=== PATIENT | male | born 1960 | race Caucasian/White ===

== ENCOUNTER 2016-07-07 08:00 | Emergency (ER) | payer OTHER ==
[~2016-07-07] VITALS: Ht 185.4 cm; Wt 169.0 kg
[~2016-07-07 08:00] MED LIST: LSX20 PO; PRED20TA PO
[2016-07-07 08:04] VITALS: TEMP 36.6; Ht 185.4 cm; Wt 169.0 kg
[2016-07-07] MEDS ORDERED: FURO-85 PO (08:20)
[2016-07-07] MEDS ORDERED: NTRGSL/4 UT (09:11)
[2016-07-07] MEDS ORDERED: ATOR-22 PO (09:11)
[2016-07-07] MEDS ORDERED: METO25TA3 PO (09:11)
[2016-07-07] MEDS ORDERED: ASPI81TA28 PO (09:15)
--- NOTE | 2016-07-07 09:17 | DIAGNOSTIC IMAGING REPORT ---
LEFT LOWER EXTREMITY VENOUS DOPPLER CLINICAL HISTORY: Left lower extremity pain. COMPARISON STUDY: No previous studies for comparison. TECHNIQUE: Sonography of the deep venous system of the left lower extremity was performed. Compression and augmentation were evaluated. FINDINGS: The left common femoral, superficial femoral and popliteal veins were compressible. Augmentation was normal. Flow was shown within the deep calf vessels. Note was made of subcutaneous edema of the left calf. IMPRESSION: No evidence of deep venous thrombus within the left lower extremity. Electronically signed by: Peng Fierro M.D. 07/07/2016 9:16 AM Dictated Date/Time: 07/07/2016 9:15 AM
[2016-07-07] MEDS ORDERED: CLOP1TAB15 PO (09:21)
--- NOTE | 2016-07-07 10:29 | DIAGNOSTIC IMAGING REPORT ---
LEFT ANKLE MIN 3 VIEWS ROUTINE CLINICAL HISTORY: Left ankle pain and swelling COMPARISON: None DISCUSSION: No acute fractures are visualized. There is a prominent plantar calcaneal spur. There are no erosive or destructive changes. There are soft tissue calcifications within the distal calf which appear dermal/subdermal. There is mild medial soft tissue swelling. There is a prominent Achilles insertional spur with equivocal thickening of the distal Achilles tendon IMPRESSION: 1. Soft tissue swelling, and soft tissue calcifications likely dermal/subdermal 2. Plantar calcaneal spur. 3. No acute fractures identified 4. Achilles insertional spur with equivocal thickening of the distal Achilles tendon. Electronically signed by: Richie Shaw M.D. 07/07/2016 10:28 AM Dictated Date/Time: 07/07/2016 8:54 AM
[2016-07-07] MEDS ORDERED: PRED50TA PO (11:11)
--- NOTE | 2016-07-07 11:12 | EMERGENCY ROOM VISIT NOTE ---
History First contact with patient: 08:07 Chief Complaint: ANKLE PAIN Stated Complaint: ANKLE SWOLLEN - LEFT History of Present Illness The patient is a 56 year old male who presents to the Emergency Department by private vehicle for evaluation of his LEFT ankle pain and swelling. He reports that he has noticed symptoms of pain to the posterior aspect of the ankle over the past month. Last evening, he developed increasing pain while at work. He reports increasing pain with inflation. He denies any numbness or tingling into his toes. He reports no history of diabetes. The patient does report a history of coronary artery disease and does take Plavix daily. There is been no history of blood clots or bleeding disorders. He rates his current discomfort as 4/10. Patient denies any fevers, chills, nausea, vomiting, chest pain, palpitations, shortness of breath. He denies any trauma to the heel. Patient has tried nothing for his symptoms to this point. Review of Systems A complete 10-point Review of Systems was discussed with the patient, with pertinent positives and negatives listed in the History of Present Illness. All remaining Review of Systems questions can be considered negative unless otherwise specified. Past Medical/Surgical History Medical Problems: (1) Exertional dyspnea (2) Heart attack Surgical Problems: (1) History of heart artery stent Family History Patient reports no known family medical history. Social History Smoking Status: Never Smoker Alcohol Use: none Drug Use: none Marital Status: Occupation Status: employed Current/Historical Medications Scheduled Aspirin (Aspirin Ec), 81 MG PO DAILY Atorvastatin (Lipitor), 40 MG PO DAILY Clopidogrel (Plavix), 75 MG PO DAILY Furosemide (Lasix), 40 MG PO QAM Metoprolol Succinate (Toprol Xl), 25 MG PO DAILY Prednisone (Prednisone), 50 MG PO DAILY Scheduled PRN Nitroglycerin (Nitrostat), 0.4 MG UT PRN PRN for Chest Pain Allergies Coded Allergies: Latex1 -Allergic Contact Dermititis (Unverified Allergy, Mild, RASH, ) Physical Exam Vital Signs Date Time Temp Pulse Resp B/P Pulse Ox O2 Delivery O2 Flow Rate FiO2 07/07/16 11:28 71 18 170/100 99 07/07/16 09:37 74 18 179/105 98 Room Air 07/07/16 08:04 36.6 71 20 172/86 97 Room Air Pain Rating (0-10): 4 Physical Exam VITAL SIGNS - Vital signs and nursing notes were reviewed. GENERAL - 56-year-old male appearing his stated age and in noticeable discomfort throughout the exam. MUSCULOSKELETAL - palpable lump noted to the posterior aspect of the LEFT heel. Full range of motion in both flexion and extension of the affected foot. No palpable edema. No erythema or lymphadenopathy/lymphatic streaking appreciated. +5/5 strength appreciated bilaterally. NEUROLOGIC/VASCULAR - Neurovascularly intact distally with +3/5 dorsalis pedis pulses palpated bilaterally. Normal sensation to light and sharp touch appreciated distally. Medical Decision & Procedures ER Provider Diagnostic Interpretation: Radiological imaging and reports were reviewed by myself. Radiologist's Interpretation as follows: LEFT ANKLE MIN 3 VIEWS ROUTINE CLINICAL HISTORY: Left ankle pain and swelling COMPARISON: None DISCUSSION: No acute fractures are visualized. There is a prominent plantar calcaneal spur. There are no erosive or destructive changes. There are soft tissue calcifications within the distal calf which appear dermal/subdermal. There is mild medial soft tissue swelling. There is a prominent Achilles insertional spur with equivocal thickening of the distal Achilles tendon IMPRESSION: 1. Soft tissue swelling, and soft tissue calcifications likely dermal/subdermal 2. Plantar calcaneal spur. 3. No acute fractures identified 4. Achilles insertional spur with equivocal thickening of the distal Achilles tendon. LEFT LOWER EXTREMITY VENOUS DOPPLER CLINICAL HISTORY: Left lower extremity pain. COMPARISON STUDY: No previous studies for comparison. TECHNIQUE: Sonography of the deep venous system of the left lower extremity was performed. Compression and augmentation were evaluated. FINDINGS: The left common femoral, superficial femoral and popliteal veins were compressible. Augmentation was normal. Flow was shown within the deep calf vessels. Note was made of subcutaneous edema of the left calf. IMPRESSION: No evidence of deep venous thrombus within the left lower extremity. ED Course Patient was seen and evaluated by myself. X-ray and ultrasound were obtained. Patient declines anything for pain. Imaging studies above. Imaging studies were reviewed with the patient who acknowledges understanding. The patient cannot utilize NSAIDs. He was placed on a short course of prednisone. He was encouraged to follow-up with orthopedic surgery from today's visit. He was educated on worrisome symptoms for return visit to the emergency department. Patient discharged home in good condition. Medical Decision Given the patient's presentation and exam findings, I did elect to perform the above-mentioned workup. The patient presents today with pain and a palpable lump to the insertion point of the Achilles. There is no erythema or warmth to touch. No palpable cords. X-ray demonstrates a calcific area at the insertion point of the Achilles. Ultrasound was otherwise unremarkable. The patient is likely expansion an acute tendinitis. He has no exam finds consistent with cellulitis or early infection at this point. He is unable to take NSAIDs. He is provided prednisone. He will continue to ice the area for comfort. He will follow-up with orthopedic surgery from today's visit. He will return in the setting of any change or worsening symptoms. Patient discharged home in good condition. In the evaluation and treatment of this patient, the following differential diagnoses were considered: Ankle Fracture, Ankle Sprain, Distal Fibula Fracture , Distal Tibia Fracture, Foot Fracture, Maisonneuve Fracture. Impression Primary Impression: Calcific Achilles tendonitis Additional Impression: Ankle pain, left Departure Information Dispostion Home / Self-Care Condition GOOD Prescriptions Prednisone (Prednisone) 50 Mg Tab 50 MG PO DAILY for 5 Days, #5 TAB Prov: Alpesh Estrada, GREG 07/07/16 Referrals Hany Berrios M.D. (PCP) Matthew Guallpa M.D. Patient Instructions My [facility], Tendonitis Foot Tx Additional Instructions You have been treated in the Emergency Department for an Achilles Calcific Tendonitis. You have been prescribed Prednisone 50 mg to be taken orally once a day for the next 5 days. This is an anti-inflammatory medicine to be used to help minimize your symptoms. You should take the COMPLETE course of the medication. For pain control, you can use the following [id number] medicines (if >12 yo): - Regular strength (325mg/tab) Tylenol (acetaminophen) 2 tabs every 4-6 hours as needed. Do not exceed 12 tablets in a 24 hour period. Avoid taking more than 4 grams (4000 mg) of Tylenol per day. This includes any other sources of acetaminophen you may take on a regular basis. - Regular strength (200 mg/tab) Advil (ibuprofen) 1-2 tabs every 4-6 hours as needed. Do not exceed a dose of 3200 mg per day. If this is a recent injury (<24 hrs), ice can be applied to the area of pain for the first 3 days to help decrease pain and inflammation. Follow-up with orthopedic surgery in the next week for ongoing symptoms. Return to the Emergency Department if your current symptoms worsen despite treatment course outlined above, or if you develop any of the following symptoms : intractable pain despite aforementioned treatment course or new onset of numbness or tingling of the foot. Problem Qualifiers Additional Impression: Ankle pain, left Chronicity: acute Qualified Codes: M25.572 - Pain in left ankle and joints of left foot
[2016-07-07 11:28] VITALS: BP 170/100; PULSE 71; O2SAT 99
== END 2016-07-07 11:29 | disposition home or self-care (01) ==
LOC: C.EDB 08:00 → C.EDA 11:29
DX: M76.62 Achilles tendinitis, left leg (principal); M25.572 Pain in left ankle and joints of left foot; I25.10 Atherosclerotic heart disease of native coronary artery without angina pectoris; I25.2 Old myocardial infarction; Z79.02 Long term (current) use of antithrombotics/antiplatelets; Z79.82 Long term (current) use of aspirin; Z79.899 Other long term (current) drug therapy

== ENCOUNTER 2016-10-28 07:13 | Emergency (ER) | payer OTHER ==
[~2016-10-28] VITALS: Ht 185.4 cm; Wt 175.2 kg
[~2016-10-28 07:13] MED LIST changes: +ASPI81TA28 PO; +ATOR-22 PO; +CLOP1TAB15 PO; +FURO-85 PO; -LSX20 PO; +METO25TA3 PO; +NTRGSL/4 UT; -PRED20TA PO
[2016-10-28 07:14] VITALS: TEMP 36.7; Ht 185.4 cm; Wt 175.2 kg
[2016-10-28] MEDS ORDERED: ALBUT/IPRATROP 3MG/0.5MG NEB 3 ML VIAL INH STA (07:29)
--- NOTE | 2016-10-28 07:33 | EMERGENCY ROOM VISIT NOTE ---
History First contact with patient: 07:19 Chief Complaint: SHORTNESS OF BREATH Stated Complaint: CHEST PAIN,SHORTNESS OF BREATH,BODY ACHES Nursing Triage Summary: pt c/o shortness of breath and cough. chest pains with coughing History of Present Illness The patient is a 56 year old male who presents to the Emergency Room with complaints of upper respiratory symptoms. The patient states that he has had a cough for approximately one week. He states that his symptoms have worsened. He reports productive cough with green-colored sputum. He states that he feels short of breath and has pain in his chest only when coughing. The patient rates his discomfort as 6/10. He denies any fevers. He denies any sore throat , earache or sinus congestion. He denies any abdominal pain, nausea or vomiting. He does admit to swelling in his lower extremities but states this is chronic for him and unchanged. He denies any urinary symptoms. The patient has a history of IL with angioplasty last December. He states that this pain feels different. The patient does not know of any sick contacts. Review of Systems A 10 system review of systems was completed with positives and pertinent negatives listed in the HPI. Past Medical/Surgical History Medical Problems: (1) Exertional dyspnea (2) Heart attack Surgical Problems: (1) History of heart artery stent Family History Patient reports no known family medical history. Social History Smoking Status: Never Smoker Alcohol Use: none Drug Use: none Marital Status: Occupation Status: employed Current/Historical Medications Scheduled Albuterol Sulfate (Proair Respiclick), 1-2 PUFFS INH Q4 Aspirin (Aspirin Ec), 81 MG PO DAILY Atorvastatin (Lipitor), 40 MG PO DAILY Clopidogrel (Plavix), 75 MG PO DAILY Doxycycline Hyclate (Vibramycin), 100 MG PO BID Furosemide (Lasix), 40 MG PO QAM Metoprolol Succinate (Toprol Xl), 25 MG PO DAILY Prednisone (Prednisone), 0 PO DAILY Scheduled PRN Nitroglycerin (Nitrostat), 0.4 MG UT PRN PRN for Chest Pain Allergies Coded Allergies: Latex1 -Allergic Contact Dermititis (Unverified Allergy, Mild, RASH, ) Physical Exam Vital Signs Date Time Temp Pulse Resp B/P Pulse Ox O2 Delivery O2 Flow Rate FiO2 10/28/16 10:45 136/72 10/28/16 09:13 71 16 132/65 98 Room Air 10/28/16 07:29 67 10/28/16 07:25 96 Room Air 10/28/16 07:14 36.7 73 16 142/72 98 Room Air Physical Exam VITALS: Vitals are noted on the nurse's note and reviewed by myself. Vital signs stable. The patient is afebrile. He is not tachycardic, tachypneic or hypoxic. GENERAL: This is a 56-year-old male, in no acute distress, nondiaphoretic, well- developed well-nourished. SKIN: The skin was without rashes, erythema, edema, or bruising. There is no tenting of the skin. Capillary reflex less than 2 seconds. HEAD: Normocephalic atraumatic. EARS: External ears are normal in appearance. EYES: Pupils equal round and reactive to light and accommodation. Conjunctivae without injection, sclerae without icterus. Extraocular movements intact. NOSE: Patent, turbinates without inflammation or discharge. MOUTH: Mucous membranes moist. Tonsils are not enlarged. Pharynx without erythema or exudate. Uvula midline. Airway patent. Tongue does not deviate. NECK: Supple without nuchal rigidity. No lymphadenopathy. No thyromegaly. Cervical spine is nontender. No JVD. HEART: Regular rate and rhythm without murmurs gallops or rubs. LUNGS: Scattered expiratory wheezes. No retractions or accessory muscle use. ABDOMEN: Positive bowel sounds x 4. Soft, nontender, without masses or organomegaly. MUSCULOSKELETAL: No muscle atrophy, erythema noted. Full range of motion in all extremities. Strength 5/5 throughout. NEURO: Patient was alert and oriented to person place and time. No focal neurological deficits. Medical Decision & Procedures ER Provider Diagnostic Interpretation: CHEST 2 VIEWS ROUTINE HISTORY: cough COMPARISON: Chest 05/15/2016. FINDINGS: No focal lung consolidations to suggest pneumonia. No evidence for pulmonary edema. The heart remains borderline enlarged. No pleural effusions. No pneumothorax. Slight prominence of interstitial markings remains unchanged. This may be technical. IMPRESSION: No significant change compared to the prior study. No acute process. Laboratory Results 10/28/16 07:45 Red Blood Count 4.69, Mean Corpuscular Volume 88.7, Mean Corpuscular Hemoglobin 29.6, Mean Corpuscular Hemoglobin Concent 33.4, Mean Platelet Volume 8.9, Neutrophils (%) (Auto) 70.1, Lymphocytes (%) (Auto) 15.2, Monocytes (%) (Auto) 9.5, Eosinophils (%) (Auto) 4.6, Basophils (%) (Auto) 0.3, Neutrophils # (Auto) 4.28, Lymphocytes # (Auto) 0.93, Monocytes # (Auto) 0.58, Eosinophils # (Auto) 0.28, Basophils # (Auto) 0.02 10/28/16 07:45 Test 10/28/16 07:45 10/28/16 08:05 10/28/16 09:45 White Blood Count 6.11 K/uL (4.8-10.8) Red Blood Count 4.69 M/uL (4.7-6.1) Hemoglobin 13.9 g/dL (14.0-18.0) Hematocrit 41.6 % (42-52) Mean Corpuscular Volume 88.7 fL (80-100) Mean Corpuscular Hemoglobin 29.6 pg (25-34) Mean Corpuscular Hemoglobin Concent 33.4 g/dl (32-36) Platelet Count 247 K/uL (130-400) Mean Platelet Volume 8.9 fL (7.4-10.4) Neutrophils (%) (Auto) 70.1 % Lymphocytes (%) (Auto) 15.2 % Monocytes (%) (Auto) 9.5 % Eosinophils (%) (Auto) 4.6 % Basophils (%) (Auto) 0.3 % Neutrophils # (Auto) 4.28 K/uL (1.4-6.5) Lymphocytes # (Auto) 0.93 K/uL (1.2-3.4) Monocytes # (Auto) 0.58 K/uL (0.11-0.59) Eosinophils # (Auto) 0.28 K/uL (0-0.5) Basophils # (Auto) 0.02 K/uL (0-0.2) RDW Standard Deviation 44.5 fL (36.4-46.3) RDW Coefficient of Variation 13.7 % (11.5-14.5) Immature Granulocyte % (Auto) 0.3 % Immature Granulocyte # (Auto) 0.02 K/uL (0.00-0.02) Anion Gap 8.0 mmol/L (3-11) Est Creatinine Clear Calc Drug Dose 181.4 ml/min Estimated GFR () 118.0 Estimated GFR (Non- 101.8 BUN/Creatinine Ratio 21.7 (10-20) Calcium Level 8.5 mg/dl (8.5-10.1) Total Bilirubin 0.4 mg/dl (0.2-1) Aspartate Amino Transf (AST/SGOT) 27 U/L (15-37) Alanine Aminotransferase (ALT/SGPT) 38 U/L (12-78) Alkaline Phosphatase 83 U/L (45-117) Total Protein 6.0 gm/dl (6.4-8.2) Albumin 3.3 gm/dl (3.4-5.0) Globulin 2.7 gm/dl (2.5-4.0) Albumin/Globulin Ratio 1.2 (0.9-2) Lipase 181 U/L (73-393) Chemistry Specimen Hemolysis Prothrombin Time 9.9 SECONDS (9.0-12.0) Prothromb Time International Ratio 0.9 (0.9-1.1) Activated Partial Thromboplast Time 26.3 SECONDS (21.0-31.0) Partial Thromboplastin Ratio 1.0 Troponin I < 0.015 ng/ml (0-0.045) Medications Administered Medications (Trade) Dose Ordered Sig/Kel Route Start Time Stop Time Status Last Admin Dose Admin Albuterol/ Ipratropium (Duoneb) 3 ml NOW STAT INH 10/28/16 07:29 10/28/16 07:30 DC 10/28/16 07:52 3 ML Procedure The patient was monitored on a case monitor. They maintained a normal sinus rhythm without ectopy. ECG Indication: chest pain Rate (beats per minute): 70 Rhythm: normal sinus Findings: no acute ischemic change Change: no significant change ED Course The patient was seen and examined. Previous visits were reviewed. The patient does not have a fever or leukocytosis. He does not have any significant electrolyte abnormalities. Glucose was 123 and the patient was advised of this. Initial troponin was negative. A repeat 2 hour troponin which was almost 3 hours after the pain started was negative. Lipase was not elevated. INR was 0.9. Chest x-ray does not reveal any obvious abnormality The patient was given a DuoNeb with no significant improvement in his symptoms The patient presents to the emergency department with upper respiratory symptoms. He has had a productive cough and scattered expiratory wheezes. He is not tachycardic, tachypneic or hypoxic. He does not have significant risk factors for pulmonary embolus. He does not have pain with deep inspiration and does not complain of chest pain at rest. He states the chest discomfort is primarily with coughing. Given the patient's history of angioplasty and IL, troponin and repeat troponin were obtained and were negative. There is no evidence for acute ischemia or arrhythmia on EKG. The patient will be started on doxycycline, prednisone and albuterol inhaler. He should return to the ER with any worsening symptoms, pain with deep inspiration, worsening shortness of breath, chest pain Otherwise, he should recheck with his family doctor at the end of the week if symptoms persist The case was discussed with Dr. Sheth who agrees with the assessment and treatment plan Medical Decision DIFFERENTIAL DIAGNOSIS: Aortic dissection, myocarditis, pericarditis, cervical disc disease, costochondritis, herpes zoster, rib fracture, pleuritis, pneumonia , pulmonary embolus, tension pneumothorax, anxiety disorder, somatoform disorder , choledocholithiasis, status, esophagitis, esophageal spasm, esophageal reflux , esophageal rupture, pancreatitis, peptic ulcer disease, cardiac ischemia, ST elevation IL, acute coronary syndrome, arrhythmia, coronary artery vasospasm. vavular heart disease, coronary artery disease, among others. Impression Primary Impression: Bronchitis Additional Impression: Precordial chest pain Departure Information Dispostion Home / Self-Care Condition GOOD Prescriptions Albuterol Sulfate (Proair Respiclick) 108 Mcg/Act Aer 1-2 PUFFS INH Q4, #1 INHALER Prov: Cee Lovell PA-C 10/28/16 Prednisone (Prednisone) 20 Mg Tab 0 PO DAILY, #18 TAB 3 DAILY FOR 3 DAYS, THEN 2 DAILY FOR 3 DAYS, THEN 1 DAILY FOR 3 DAYS. Prov: Cee Lovell PA-C 10/28/16 Doxycycline Hyclate (VIBRAMYCIN) 100 Mg Cap 100 MG PO BID for 10 Days, #20 CAP Prov: Cee Lovell PA-C 10/28/16 Referrals Hany Berrios M.D. (PCP) Forms HOME CARE DOCUMENTATION FORM, IMPORTANT VISIT INFORMATION, Work Instructions Return To Work: 2 days Patient Instructions Bronchitis Acute, Chest Pain - [facility], My [facility] Additional Instructions Doxycycline every 12 hours for 10 days Prednisone as prescribed, until finished Use the inhaler as prescribed, as needed for wheezing You may want to try zantac or pepcid as the prednisone, doxycycline and aspirin can all be irritating to the stomach Return with worsening symptoms Otherwise, follow up with your family doctor in 3-5 days Problem Qualifiers
[2016-10-28 07:59] LABS: BASO % 0.3 %; BASO ABS # 0.02 K/uL (0-0.2); COMPLETE YES; EOS % 4.6 %; HEMATOCRIT 41.6 % (42-52); IG% 0.3 %; LYMPH % 15.2 %; LYMPH ABS # 0.93 K/uL (1.2-3.4); MEAN CELL VOLUME 88.7 fL (80-100); MEAN CORPUSCULAR HEMOGLOBIN 29.6 pg (25-34); MEAN CORPUSCULAR HGB CONC 33.4 g/dl (32-36); MEAN PLATELET VOLUME 8.9 fL (7.4-10.4); MONO % 9.5 %; NEUT % 70.1 %; PLATELET COUNT 247 K/uL (130-400); RED BLOOD COUNT 4.69 M/uL (4.7-6.1); WHITE BLOOD COUNT 6.11 K/uL (4.8-10.8)
[2016-10-28 08:43] LABS: INR 0.9 (0.9-1.1); PROTHROMBIN TIME (PATIENT) 9.9 SECONDS (9.0-12.0)
--- NOTE | 2016-10-28 08:45 | DIAGNOSTIC IMAGING REPORT ---
CHEST 2 VIEWS ROUTINE HISTORY: cough COMPARISON: Chest 05/15/2016. FINDINGS: No focal lung consolidations to suggest pneumonia. No evidence for pulmonary edema. The heart remains borderline enlarged. No pleural effusions. No pneumothorax. Slight prominence of interstitial markings remains unchanged. This may be technical. IMPRESSION: No significant change compared to the prior study. No acute process. Electronically signed by: Cesario Clark M.D. 10/28/2016 8:44 AM Dictated Date/Time: 10/28/2016 8:43 AM
[2016-10-28 08:51] LABS: ALB/GLOB RATIO 1.2 (0.9-2); ALKALINE PHOSPHATASE 83 U/L (45-117); ALT/SGPT 38 U/L (12-78); AST/SGOT 27 U/L (15-37); BLOOD UREA NITROGEN 16 mg/dl (7-18); BUN/CREATININE RATIO 21.7 (10-20); CARBON DIOXIDE 27 mmol/L (21-32); CHLORIDE 107 mmol/L (98-107); CREATININE 0.75 mg/dl (0.60-1.40); GLUCOSE 123 mg/dl (70-99); POTASSIUM 4.4 mmol/L (3.5-5.1); SODIUM 142 mmol/L (136-145)
[2016-10-28 08:54] LABS: CALCIUM 8.5 mg/dl (8.5-10.1)
[2016-10-28 09:13] VITALS: PULSE 71; O2SAT 98
[2016-10-28] MEDS ORDERED: DOXY100C PO (10:34)
[2016-10-28] MEDS ORDERED: PRED20TA PO (10:34)
[2016-10-28] MEDS ORDERED: ALBU18002 INH (10:34)
[2016-10-28 10:45] VITALS: BP 136/72
== END 2016-10-28 10:45 | disposition home or self-care (01) ==
LOC: C.EDB 07:14
DX: R07.2 Precordial pain (principal); J40 Bronchitis, not specified as acute or chronic; I51.9 Heart disease, unspecified; Z98.61 Coronary angioplasty status; Z79.82 Long term (current) use of aspirin; Z79.899 Other long term (current) drug therapy; Z91.040 Latex allergy status

== ENCOUNTER 2017-05-27 07:28 | Emergency (ER) | payer OTHER ==
[~2017-05-27] VITALS: Ht 185.4 cm; Wt 177.8 kg
[~2017-05-27 07:28] MED LIST changes: +ALBU18002 INH
[2017-05-27 07:33] VITALS: Ht 185.4 cm; Wt 177.8 kg
[2017-05-27] MEDS ORDERED: TPRSR/50 PO (07:42)
[2017-05-27] MEDS ORDERED: LISI-461 PO (07:42)
[2017-05-27] MEDS ORDERED: LPT40 PO (07:42)
[2017-05-27] MEDS ORDERED: ASPIRIN 81 MG CHEW PO STA (08:01)
--- NOTE | 2017-05-27 08:07 | EMERGENCY ROOM VISIT NOTE ---
History Report prepared by Chet: Cee Dickerson Under the Supervision of: Dr. Autumn Bernstein M.D. First contact with patient: 07:39 Chief Complaint: SHORTNESS OF BREATH Stated Complaint: SOB, CHEST PAIN History of Present Illness The patient is a 57 year old male who presents to the Emergency Room with complaints of persistent chest pain that began this morning prior to arrival. He currently rates his discomfort as a 6/10 in severity. The patient states that for the past month he has been experiencing a cough. He states that this morning while working and walking around, he developed chest pain. The patient states that he also developed shortness of breath. He states that his symptoms worsened with exertion. He describes his discomfort as a stabbing pain. The patient states that the pain radiates into his back. He reports a history of coronary artery disease and notes that he had a stent placed last year. The patient denies being a smoker and denies a history of diabetes. He denies any nausea. Source of History: patient Onset: this morinng prior to arrival Position: chest Symptom Intensity: 6/10 Quality: stabbing Timing: other (persistent) Modifying Factors (Worsening): exertion Associated Symptoms: + cough, + SOB, No nausea Review of Systems See HPI for pertinent positives & negatives. A total of 10 systems reviewed and were otherwise negative. Past Medical & Surgical Medical Problems: (1) Exertional dyspnea (2) Heart attack Surgical Problems: (1) History of heart artery stent Family History Patient reports no known family medical history. Social History Smoking Status: Never Smoker Alcohol Use: none Drug Use: none Marital Status: Occupation Status: employed Current/Historical Medications Scheduled Albuterol Sulfate (Proair Respiclick), 1-2 PUFFS INH Q4 Aspirin (Aspirin Ec), 81 MG PO DAILY Atorvastatin (Atorvastatin Calcium), 40 MG PO DAILY Clopidogrel (Plavix), 75 MG PO DAILY Furosemide (Lasix), 40 MG PO QAM Furosemide (Lasix), 1 TAB PO DAILY Lisinopril (Lisinopril), 10 MG PO DAILY Metoprolol Succinate (Metoprolol Succinate ER), 50 MG PO DAILY Scheduled PRN Nitroglycerin (Nitrostat), 0.4 MG UT PRN PRN for Chest Pain Allergies Coded Allergies: Latex1 -Allergic Contact Dermititis (Unverified Allergy, Mild, RASH, ) Physical Exam Vital Signs Date Time Temp Pulse Resp B/P (MAP) Pulse Ox O2 Delivery O2 Flow Rate FiO2 05/27/17 10:52 36.6 66 23 148/77 97 05/27/17 10:51 66 23 148/77 97 Room Air 05/27/17 09:46 67 23 144/70 97 05/27/17 09:41 65 20 98 05/27/17 09:36 69 20 98 05/27/17 09:31 147/77 05/27/17 09:28 69 20 96 05/27/17 09:01 144/70 05/27/17 08:58 71 15 98 05/27/17 08:31 150/74 05/27/17 08:28 76 24 95 05/27/17 08:05 82 18 147/72 95 Room Air 05/27/17 08:01 147/72 05/27/17 08:00 151/80 05/27/17 07:51 95 Room Air 05/27/17 07:33 36.6 79 18 171/81 97 Room Air Physical Exam Vital signs reviewed. General: Well-appearing male, in no significant distress. HEENT: No scleral icterus, PERRLA, neck supple. Atraumatic. Chest wall: Nontender chest wall to palpation. Cardiovascular: Regular rate and rhythm, no extra sounds. Pulmonary: Clear to auscultation bilaterally, normal work of breathing. Abdomen: Obese. Soft, nontender, nondistended, positive bowel sounds. Musculoskeletal: Atraumatic, no peripheral edema. Neurologic: Patient awake alert and oriented x 3, full strength in all 4 extremities. Cranial nerves 2 through 12 grossly intact. Skin: Warm, dry, no rash Medical Decision & Procedures ER Provider Diagnostic Interpretation: X-ray results as stated below per interpretation by me and the radiologist: CHEST ONE VIEW PORTABLE HISTORY: Short of breath. Atypical chest pain. COMPARISON: Chest 10/28/2016. FINDINGS: The heart remains top normal in size. No pleural effusions. No pneumothorax. Mild central pulmonary vascular congestion without overt edema. IMPRESSION: Mild central pulmonary vascular congestion without overt edema. Electronically signed by: Cesario Clark M.D. 05/27/2017 10:35 AM Dictated Date/Time: 05/27/2017 8:26 AM Laboratory Results 05/27/17 07:51 Red Blood Count 4.76, Mean Corpuscular Volume 88.4, Mean Corpuscular Hemoglobin 29.8, Mean Corpuscular Hemoglobin Concent 33.7, Mean Platelet Volume 9.1, Neutrophils (%) (Auto) 74.1, Lymphocytes (%) (Auto) 14.5, Monocytes (%) (Auto) 7.0, Eosinophils (%) (Auto) 4.0, Basophils (%) (Auto) 0.2, Neutrophils # (Auto) 4.47, Lymphocytes # (Auto) 0.87, Monocytes # (Auto) 0.42, Eosinophils # (Auto) 0.24, Basophils # (Auto) 0.01 05/27/17 07:51 Test 05/27/17 07:51 05/27/17 09:39 White Blood Count 6.02 K/uL (4.8-10.8) Red Blood Count 4.76 M/uL (4.7-6.1) Hemoglobin 14.2 g/dL (14.0-18.0) Hematocrit 42.1 % (42-52) Mean Corpuscular Volume 88.4 fL (80-100) Mean Corpuscular Hemoglobin 29.8 pg (25-34) Mean Corpuscular Hemoglobin Concent 33.7 g/dl (32-36) Platelet Count 235 K/uL (130-400) Mean Platelet Volume 9.1 fL (7.4-10.4) Neutrophils (%) (Auto) 74.1 % Lymphocytes (%) (Auto) 14.5 % Monocytes (%) (Auto) 7.0 % Eosinophils (%) (Auto) 4.0 % Basophils (%) (Auto) 0.2 % Neutrophils # (Auto) 4.47 K/uL (1.4-6.5) Lymphocytes # (Auto) 0.87 K/uL (1.2-3.4) Monocytes # (Auto) 0.42 K/uL (0.11-0.59) Eosinophils # (Auto) 0.24 K/uL (0-0.5) Basophils # (Auto) 0.01 K/uL (0-0.2) RDW Standard Deviation 44.7 fL (36.4-46.3) RDW Coefficient of Variation 13.8 % (11.5-14.5) Immature Granulocyte % (Auto) 0.2 % Immature Granulocyte # (Auto) 0.01 K/uL (0.00-0.02) Anion Gap 8.0 mmol/L (3-11) Est Creatinine Clear Calc Drug Dose 159.5 ml/min Estimated GFR () 111.3 Estimated GFR (Non- 96.0 BUN/Creatinine Ratio 14.3 (10-20) Calcium Level 8.2 mg/dl (8.5-10.1) Total Bilirubin 0.7 mg/dl (0.2-1) Direct Bilirubin 0.2 mg/dl (0-0.2) Aspartate Amino Transf (AST/SGOT) 17 U/L (15-37) Alanine Aminotransferase (ALT/SGPT) 28 U/L (12-78) Alkaline Phosphatase 87 U/L (45-117) Total Creatine Kinase 136 U/L (39-308) Creatine Kinase MB 2.8 ng/ml (0.5-3.6) Creatine Kinase MB Ratio 2.1 (0-3.0) Total Protein 6.6 gm/dl (6.4-8.2) Albumin 3.3 gm/dl (3.4-5.0) Bedside Troponin I < 0.030 ng/ml (0-0.045) Laboratory results per my review. Medications Administered Medications (Trade) Dose Ordered Sig/Kel Route Start Time Stop Time Status Last Admin Dose Admin Aspirin (Aspirin Chew) 324 mg NOW STAT PO 05/27/17 08:01 05/27/17 08:04 DC 05/27/17 08:40 324 MG Nitroglycerin (Nitrostat Tab) 0.4 mg Q5M PRN SL 05/27/17 08:15 05/27/17 11:49 DC 05/27/17 08:41 0.4 MG Furosemide (Lasix Inj) 40 mg NOW STAT IV 05/27/17 09:10 05/27/17 09:11 DC 05/27/17 09:37 40 MG ECG Indication: chest pain Rate (beats per minute): 78 Rhythm: normal sinus Findings: Q waves (Inferior), no acute ischemic change, no ectopy ED Course 0754: Past medical records reviewed. The patient was evaluated in room B8. A complete history and physical examination was performed. 0801: Ordered Aspirin 324 mg PO. 0815: Ordered Nitrostat Tab 0.4 mg SL. 0910: Ordered Lasix Inj 40 mg IV. 1003: I reevaluated the patient and he is resting comfortably. I discussed the test results with him and I discussed the treatment plan. He verbalized complete understanding and agreement. He is ready to go home. Medical Decision Differential diagnoses includes acute coronary syndrome, pulmonary embolus, aortic dissection, musculoskeletal pain, pneumonia, pleural effusion, pneumothorax, gastritis, peptic ulcer disease. This pt was evaluated and appeared to be in no distress. IV access was obtained and appeared to be in no distress. EKG was was performed and reveals no acute ischemia. Pt was given ASA 325 mg po. He was given NTG trial. CXR is c/w pulmonary edema. Pt was given 40 mg IV lasix. Troponin was negative x 2. Pt had no pain during the stay. He was feeling improved after diuresis. Pt was advised of the findings. He was given a Rx for lasix 40mg po daily and will f/u with his PCP this week. He will return to the ED for worsening of symptoms or any medical concerns. Medication Reconcilliation Current Medication List: was personally reviewed by me Blood Pressure Screening Patient's blood pressure: Elevated blood pressure Blood pressure disposition: Referred to PCP Impression Primary Impression: Pulmonary vascular congestion Scribe Attestation The scribe's documentation has been prepared under my direction and personally reviewed by me in its entirety. I confirm that the note above accurately reflects all work, treatment, procedures, and medical decision making performed by me. Departure Information Dispostion Home / Self-Care Prescriptions Furosemide (LASIX) 40 Mg Tab 1 TAB PO DAILY for 30 Days, #30 TAB 0 Refills Prov: Autumn Bernstein M.D. 05/27/17 Referrals Hany Berrios M.D. (PCP) Forms Call Back Authorization, HOME CARE DOCUMENTATION FORM, IMPORTANT VISIT INFORMATION Patient Instructions My [facility] Additional Instructions Diagnosis: Pulmonary vascular congestion Lasix 40 mg daily, taken the morning. Minimize the salt in your diet, less than 2 g daily. Follow-up with your physician as scheduled next week for reevaluation. Return to the emergency department immediately for worsening of symptoms, chest pain or any medical concerns.
[2017-05-27] MEDS ORDERED: NITROGLYCERIN 0.4 MG SL PER TAB CHARGE SL PRN (08:15)
[2017-05-27 08:22] LABS: BASO % 0.2 %; BASO ABS # 0.01 K/uL (0-0.2); COMPLETE YES; HEMATOCRIT 42.1 % (42-52); IG% 0.2 %; LYMPH % 14.5 %; LYMPH ABS # 0.87 K/uL (1.2-3.4); MEAN CELL VOLUME 88.4 fL (80-100); MEAN CORPUSCULAR HEMOGLOBIN 29.8 pg (25-34); MEAN CORPUSCULAR HGB CONC 33.7 g/dl (32-36); MEAN PLATELET VOLUME 9.1 fL (7.4-10.4); NEUT % 74.1 %; PLATELET COUNT 235 K/uL (130-400); RED BLOOD COUNT 4.76 M/uL (4.7-6.1); WHITE BLOOD COUNT 6.02 K/uL (4.8-10.8)
[2017-05-27 08:38] LABS: BUN/CREATININE RATIO 14.3 (10-20); CALCIUM 8.2 mg/dl (8.5-10.1); CREATININE 0.85 mg/dl (0.60-1.40); POTASSIUM 4.1 mmol/L (3.5-5.1)
[2017-05-27 08:43] LABS: CKMB/CK RATIO 2.1 (0-3.0)
[2017-05-27] MEDS ORDERED: FUROSEMIDE 40 MG/4 ML VIAL IV STA (09:10)
[2017-05-27] MEDS ORDERED: FURO40TA3 PO (10:34)
--- NOTE | 2017-05-27 10:36 | DIAGNOSTIC IMAGING REPORT ---
CHEST ONE VIEW PORTABLE HISTORY: Short of breath. Atypical chest pain. COMPARISON: Chest 10/28/2016. FINDINGS: The heart remains top normal in size. No pleural effusions. No pneumothorax. Mild central pulmonary vascular congestion without overt edema. IMPRESSION: Mild central pulmonary vascular congestion without overt edema. Electronically signed by: Cesario Clark M.D. 05/27/2017 10:35 AM Dictated Date/Time: 05/27/2017 8:26 AM
[2017-05-27 10:52] VITALS: BP 148/77; PULSE 66; TEMP 36.6; O2SAT 97
== END 2017-05-27 10:58 | disposition home or self-care (01) ==
LOC: C.EDB 07:29
DX: J81.1 Chronic pulmonary edema (principal); R06.02 Shortness of breath; I25.10 Atherosclerotic heart disease of native coronary artery without angina pectoris; I25.2 Old myocardial infarction; Z98.61 Coronary angioplasty status; Z79.02 Long term (current) use of antithrombotics/antiplatelets; Z79.82 Long term (current) use of aspirin

== ENCOUNTER 2017-08-24 08:04 | Emergency (ER) | payer OTHER ==
[~2017-08-24] VITALS: Ht 185.4 cm; Wt 168.8 kg
[~2017-08-24 08:04] MED LIST changes: -ATOR-22 PO; +FURO40TA3 PO; +LISI-461 PO; +LPT40 PO; -METO25TA3 PO; +TPRSR/50 PO
[2017-08-24 08:07] VITALS: TEMP 37; Ht 185.4 cm; Wt 168.8 kg
[2017-08-24 08:18] VITALS: O2SAT 96
[2017-08-24] MEDS ORDERED: ALBUT/IPRATROP 3MG/0.5MG NEB 3 ML VIAL INH STA (08:25)
[2017-08-24] MEDS ORDERED: ASPIRIN 324 MG CHEW PO STA (08:25)
[2017-08-24] MEDS ORDERED: FRS/40 PO (08:30)
--- NOTE | 2017-08-24 08:43 | EMERGENCY ROOM VISIT NOTE ---
History Report prepared by Chte: Benedicto Ovalle Under the Supervision of: Dr. Parish Grossman M.D. First contact with patient: 08:12 Chief Complaint: CHEST PAIN Stated Complaint: CHEST PAIN History of Present Illness The patient is a 57 year old white male with a past medical history of HTN and IL with stent placement (MICKIE to RCA) who presents to the ED with a cc of constant central chest pain beginning 30 minutes ago. Patient describes his pain as an "achy-burning". He denies modifying factors. Positive cough, diaphoresis, headache shortness of breath. Pain began while walking around his building at work. Negative fevers, chills, pain radiation. Shortness of breath is not worsened with laying down. He is on aspirin and Plavix. Unsure if increased leg swelling. No history of blood clots. Source of History: patient Onset: 30 minutes ago Position: chest (central) Quality: other ("achy-burning") Timing: constant Modifying Factors (Worsening): other (none) Modifying Factors (Relieving): other (none) Associated Symptoms: + headache, + diaphoresis, + cough, + SOB, No fevers, No chills Review of Systems See HPI for pertinent positives and negatives. A total of ten systems were reviewed and were otherwise negative. Past Medical & Surgical Medical Problems: (1) Exertional dyspnea (2) Heart attack Surgical Problems: (1) History of heart artery stent Family History Patient reports no known family medical history. Social History Smoking Status: Never Smoker Alcohol Use: none Drug Use: none Marital Status: Occupation Status: employed Current/Historical Medications Scheduled Aspirin (Aspirin Ec), 81 MG PO DAILY Atorvastatin (Lipitor), 40 MG PO DAILY Clopidogrel (Plavix), 75 MG PO DAILY Furosemide (Lasix), 60 MG PO DAILY Lisinopril (Lisinopril), 10 MG PO DAILY Metoprolol Succinate (Metoprolol Succinate ER), 50 MG PO DAILY Scheduled PRN Nitroglycerin (Nitrostat), 0.4 MG UT PRN PRN for Chest Pain Allergies Coded Allergies: Latex1 -Allergic Contact Dermititis (Unverified Allergy, Mild, RASH, ) Physical Exam Vital Signs Date Time Temp Pulse Resp B/P (MAP) Pulse Ox O2 Delivery O2 Flow Rate FiO2 08/24/17 12:15 68 18 150/89 98 08/24/17 09:48 65 18 138/72 98 Room Air 08/24/17 08:36 72 08/24/17 08:18 96 Room Air 08/24/17 08:07 37.0 72 18 173/82 97 Room Air Physical Exam GENERAL: Awake, alert, well-appearing, NAD HENT: Normocephalic, atraumatic. EYES: Normal conjunctiva. Sclera non-icteric. NECK: Supple. No nuchal rigidity. FROM. RESPIRATORY: Diffuse inspiratory and expiratory wheezing throughout. CARDIAC: RRR, no MRG ABDOMEN: Obese. Soft, NTND, BS+ MSK: No reproducible chest wall TTP. 2+ pitting edema bilateral LE. NEURO: GCS 15, CN 2-12 intact, moves all 4s on command SKIN: No rash or jaundice noted. Medical Decision & Procedures ER Provider Diagnostic Interpretation: Radiology results as stated below per my review and radiologist interpretation: CHEST ONE VIEW PORTABLE FINDINGS: Mild stable cardiomegaly. Diaphragms smooth. The lungs are clear. IMPRESSION: No acute process. Mild stable cardiomegaly. The above report was generated using voice recognition software. It may contain grammatical, syntax or spelling errors. Electronically signed by: Devon Jensen M.D. 08/24/2017 8:42 AM Laboratory Results 08/24/17 08:55 Red Blood Count 4.49, Mean Corpuscular Volume 86.9, Mean Corpuscular Hemoglobin 30.3, Mean Corpuscular Hemoglobin Concent 34.9, Mean Platelet Volume 8.5, Neutrophils (%) (Auto) 73.8, Lymphocytes (%) (Auto) 15.2, Monocytes (%) (Auto) 6.9, Eosinophils (%) (Auto) 3.5, Basophils (%) (Auto) 0.3, Neutrophils # (Auto) 4.70, Lymphocytes # (Auto) 0.97, Monocytes # (Auto) 0.44, Eosinophils # (Auto) 0.22, Basophils # (Auto) 0.02 08/24/17 08:55 Test 08/24/17 08:50 08/24/17 08:55 08/24/17 10:40 Influenza Type A Antigen Neg for Influ A (NEG) Influenza Type B Antigen Neg for Influ B (NEG) White Blood Count 6.37 K/uL (4.8-10.8) Red Blood Count 4.49 M/uL (4.7-6.1) Hemoglobin 13.6 g/dL (14.0-18.0) Hematocrit 39.0 % (42-52) Mean Corpuscular Volume 86.9 fL (80-100) Mean Corpuscular Hemoglobin 30.3 pg (25-34) Mean Corpuscular Hemoglobin Concent 34.9 g/dl (32-36) Platelet Count 220 K/uL (130-400) Mean Platelet Volume 8.5 fL (7.4-10.4) Neutrophils (%) (Auto) 73.8 % Lymphocytes (%) (Auto) 15.2 % Monocytes (%) (Auto) 6.9 % Eosinophils (%) (Auto) 3.5 % Basophils (%) (Auto) 0.3 % Neutrophils # (Auto) 4.70 K/uL (1.4-6.5) Lymphocytes # (Auto) 0.97 K/uL (1.2-3.4) Monocytes # (Auto) 0.44 K/uL (0.11-0.59) Eosinophils # (Auto) 0.22 K/uL (0-0.5) Basophils # (Auto) 0.02 K/uL (0-0.2) RDW Standard Deviation 43.3 fL (36.4-46.3) RDW Coefficient of Variation 13.6 % (11.5-14.5) Immature Granulocyte % (Auto) 0.3 % Immature Granulocyte # (Auto) 0.02 K/uL (0.00-0.02) Prothrombin Time 9.9 SECONDS (9.0-12.0) Prothromb Time International Ratio 0.9 (0.9-1.1) Activated Partial Thromboplast Time 25.0 SECONDS (21.0-31.0) Partial Thromboplastin Ratio 1.0 Anion Gap 8.0 mmol/L (3-11) Est Creatinine Clear Calc Drug Dose 156.5 ml/min Estimated GFR () 111.9 Estimated GFR (Non- 96.5 BUN/Creatinine Ratio 12.7 (10-20) Calcium Level 8.6 mg/dl (8.5-10.1) Magnesium Level 2.0 mg/dl (1.8-2.4) Total Bilirubin 0.5 mg/dl (0.2-1) Direct Bilirubin 0.1 mg/dl (0-0.2) Aspartate Amino Transf (AST/SGOT) 17 U/L (15-37) Alanine Aminotransferase (ALT/SGPT) 25 U/L (12-78) Alkaline Phosphatase 83 U/L (45-117) Pro-B-Type Natriuretic Peptide 376 pg/ml (0-900) Total Protein 6.5 gm/dl (6.4-8.2) Albumin 3.3 gm/dl (3.4-5.0) Lipase 158 U/L (73-393) Troponin I < 0.015 ng/ml (0-0.045) Laboratory results reviewed by me Medications Administered Medications (Trade) Dose Ordered Sig/Kel Route Start Time Stop Time Status Last Admin Dose Admin Aspirin (Aspirin Chew) 324 mg NOW STAT PO 08/24/17 08:25 08/24/17 08:26 DC 08/24/17 08:38 324 MG Albuterol/ Ipratropium (Duoneb) 3 ml ONE STAT INH 08/24/17 08:25 08/24/17 08:26 DC 08/24/17 08:38 3 ML Miscellaneous Medication (Gi Cocktail) 24 ml ONE STAT PO 08/24/17 09:22 08/24/17 09:24 DC 08/24/17 09:50 24 ML Famotidine (Pepcid Tab) 20 mg NOW ONCE PO 08/24/17 09:30 08/24/17 09:31 DC 08/24/17 09:50 20 MG Furosemide (Lasix Inj) 60 mg NOW STAT IV 08/24/17 09:27 08/24/17 09:50 DC 08/24/17 10:24 60 MG ECG Per My Interpretation Indication: chest pain Rate (beats per minute): 75 Rhythm: normal sinus Findings: other (Normal intervals. Normal axis. No STS changes or TWI. ) ED Course 0815: The patient was evaluated in room B2. A complete history and physical exam was performed. 0940: I reassessed the patient. He is resting comfortably. 1100: I checked in on the patient. He is pain free. 1150: I reevaluated the patient. Discussed results and discharge instructions: he verbalized understanding and agreement. The patient is ready for discharge. Medical Decision The patient is a 57 year old white male with a past medical history of HTN and IL with stent placement (MICKIE to RCA) who presents to the ED with a cc of constant central chest pain beginning 30 minutes ago. Differential diagnosis: Etiologies such as cardiac ischemia, aortic dissection, pulmonary embolism, pneumonia, pneumothorax, musculoskeletal, infections, pericarditis, myocarditis , esophageal rupture, gastrointestinal, as well as others were entertained. Prior records were reviewed. Patient does have a known MICKIE status post PCI to the RCA placed in 2016. Patient is follow-up with cardiology with [facility]. Patient was seen and evaluated the bedside. Patient did note some chest discomfort and some shortness of breath. Patient states that began about 30 minutes prior to arrival. The patient describes the chest discomfort is achy and burning. Patient denies any recent food or dietary changes. Patient states he does not have any exertional dyspnea. Patient does have some mild sweatiness but no nausea or vomiting. Patient states that the pain does not radiate. Patient states he may have some lower extremity swelling. Patient does use chewing tobacco. Patient did not take his morning medications. Patient did have blood work, EKG, troponin, chest x-ray, DuoNeb, and full dose aspirin given. Patient was feeling well upon reassessment. Patient's lungs sounded more clear. Patient's troponin negative. Chest x-ray mild cardiomegaly but no evidence of consolidation pulmonary edema. Patient's white blood cell count normal. Patient is not anemic. Given that the patient does have a cardiac history although his recent chest discomfort does not sound cardiac in nature. The patient did have a repeat troponin that was completed. Patient's troponin was also undetectable 2. Given the negative troponins 2, nonischemic EKG, negative sounding history I believe that the patient is suitable for outpatient follow-up treatment at this time. PERC of 1. Wells of 0. Less likely PE. Did eat an orange this morning. Maybe some GERD/gastritis. Told to take Zantac/Pepcid. The patient was told to follow-up with his [facility] director of dietary as scheduled. Patient was also given returning signs and warning precautions for which to return. Patient was given strict follow-up, discharge , and return precautions. All questions were answered. Patient was deemed suitable for outpatient follow-up at this time. Patient agreed with the plan of care and was safely discharged home. Medication Reconcilliation Current Medication List: was personally reviewed by me Blood Pressure Screening Patient's blood pressure: Elevated blood pressure Blood pressure disposition: Referred to PCP Impression Primary Impression: Burning chest pain Additional Impression: Anemia Scribe Attestation The scribe's documentation has been prepared under my direction and personally reviewed by me in its entirety. I confirm that the note above accurately reflects all work, treatment, procedures, and medical decision making performed by me. Departure Information Dispostion Home / Self-Care Referrals No Doctor, Assigned (PCP) Patient Instructions ED PUD Vs Gastritis, My [facility] Additional Instructions Please return to the emergency department if you have worsening or recurrent symptoms not amenable to at-home treatment. Please call for a follow-up appointment with her primary care physician. Please take your medications as prescribed. If you have other concerns and/or complaints please feel free to also call your primary care physician's office or return the ED for further evaluation, management, and treatment. You were found to have an elevated blood pressure today (>120 sytolic or >90 diastolic). Per medicare guidelines, you need to follow up with this blood pressure screening with your Primary Care Physician (PCP). For a new PCP call [phone]. You received narcotic or benzodiazepene medication while in the emergency room today. This is an addictive medication that may cause drowziness as well as constipation. Do not drive, operate heavy machinery, or drink alcohol under the influence of this medication. You may take 600 mg Ibuprofen every 6 hours as needed for pain with food for no more than 2 consecutive days. You may take tylenol 1000 mg every 6 hours as needed for pain. You may take motrin and tylenol separately or at the same time. Take your medications as prescribed. Consider running citrus or spicy foods. Also please consider taking a Pepcid or Zantac daily to help with GI upset. If you do have worsening chest pains that are exertional in nature, vomiting, sweating episodes please return to the emergency department. Please keep your follow-up with your primary director of dietary. You have been examined and treated today on an emergency basis only. This is not a substitute for, or an effort to provide, complete comprehensive medical care. It is impossible to recognize and treat all injuries or illnesses in a single emergency department visit. It is therefore important that you follow up closely with [facility], your PCP, and/or your specialist(s). Call as soon as possible for an appointment. Thank you for your time and consideration. I look forward to speaking with you again soon. Please don't hesitate to call us if you have any questions. Problem Qualifiers Additional Impression: Anemia Anemia type: unspecified type Qualified Codes: D64.9 - Anemia, unspecified
--- NOTE | 2017-08-24 08:44 | DIAGNOSTIC IMAGING REPORT ---
CHEST ONE VIEW PORTABLE CLINICAL HISTORY: CHEST PAIN dyspnea COMPARISON STUDY: 05/27/2017 FINDINGS: Mild stable cardiomegaly. Diaphragms smooth. The lungs are clear. IMPRESSION: No acute process. Mild stable cardiomegaly. The above report was generated using voice recognition software. It may contain grammatical, syntax or spelling errors. Electronically signed by: Devon Jensen M.D. 08/24/2017 8:42 AM Dictated Date/Time: 08/24/2017 8:42 AM
[2017-08-24 09:03] LABS: BASO % 0.3 %; BASO ABS # 0.02 K/uL (0-0.2); EOS % 3.5 %; EOS ABS # 0.22 K/uL (0-0.5); HEMOGLOBIN 13.6 g/dL (14.0-18.0); IG# 0.02 K/uL (0.00-0.02); LYMPH % 15.2 %; LYMPH ABS # 0.97 K/uL (1.2-3.4); MEAN CELL VOLUME 86.9 fL (80-100); MEAN CORPUSCULAR HEMOGLOBIN 30.3 pg (25-34); MEAN CORPUSCULAR HGB CONC 34.9 g/dl (32-36); MEAN PLATELET VOLUME 8.5 fL (7.4-10.4); MONO % 6.9 %; MONO ABS # 0.44 K/uL (0.11-0.59); NEUT % 73.8 %; PLATELET COUNT 220 K/uL (130-400); RED CELL DISTRIBUTION WIDTH CV 13.6 % (11.5-14.5); RED CELL DISTRIBUTION WIDTH SD 43.3 fL (36.4-46.3); WHITE BLOOD COUNT 6.37 K/uL (4.8-10.8)
[2017-08-24 09:12] LABS: INR 0.9 (0.9-1.1)
[2017-08-24 09:19] LABS: ALBUMIN 3.3 gm/dl (3.4-5.0); ALT/SGPT 25 U/L (12-78); BLOOD UREA NITROGEN 11 mg/dl (7-18); CALCIUM 8.6 mg/dl (8.5-10.1); CARBON DIOXIDE 25 mmol/L (21-32); CREATININE 0.84 mg/dl (0.60-1.40); GLUCOSE 123 mg/dl (70-99); LIPASE 158 U/L (73-393); POTASSIUM 4.5 mmol/L (3.5-5.1); SODIUM 138 mmol/L (136-145)
[2017-08-24] MEDS ORDERED: GI COCKTAIL PO STA (09:22)
[2017-08-24 09:24] LABS: INFLUENZA B ANTIGEN Neg for Influ B (NEG)
[2017-08-24 09:25] LABS: ALKALINE PHOSPHATASE 83 U/L (45-117); AST/SGOT 17 U/L (15-37); TOTAL PROTEIN 6.5 gm/dl (6.4-8.2)
[2017-08-24] MEDS ORDERED: FUROSEMIDE 40 MG/4 ML VIAL IV STA (09:27)
[2017-08-24] MEDS ORDERED: FAMOTIDINE 20 MG TAB PO ONE (09:30)
[2017-08-24] MEDS ORDERED: LIDOCAINE HCL 2% VISC SOLN 20 ML UDC ONE (09:42)
[2017-08-24] MEDS ORDERED: ALUMINUM/MAGNESIUM SUSP 30 ML UDC ONE (09:42)
[2017-08-24 12:15] VITALS: BP 150/89; PULSE 68; O2SAT 98
== END 2017-08-24 12:16 | disposition home or self-care (01) ==
LOC: C.EDB 08:05
DX: R07.9 Chest pain, unspecified (principal); D64.9 Anemia, unspecified; R06.02 Shortness of breath; I10 Essential (primary) hypertension; I25.2 Old myocardial infarction; F17.220 Nicotine dependence, chewing tobacco, uncomplicated; Z95.5 Presence of coronary angioplasty implant and graft; Z79.82 Long term (current) use of aspirin; Z79.02 Long term (current) use of antithrombotics/antiplatelets; Z91.040 Latex allergy status

== ENCOUNTER 2018-06-17 01:59 | Inpatient (IN) ==
[2018-06-17] MEDS ORDERED: ALBUT/IPRATROP 3MG/0.5MG NEB 3 ML VIAL ONE (02:20)
[2018-06-17] MEDS ORDERED: methylPREDNISolone 125 MG/2 ML VIAL IV STA (02:57)
[2018-06-17 03:08] LABS: Hematocrit (blood only) 40.4 % (42-52); Hemoglobin 14.1 g/dL (14.0-18.0); Mean Corpuscular Hgb Conc 34.9 g/dL (32-36); Mean Corpuscular Volume 87.8 fL (80-100); Platelet Count 272 K/uL (130-400); RDW Coefficient of Variation 14.3 % (11.5-14.5); RDW Standard Deviation 45.8 fL (36.4-46.3); White Blood Count 9.85 K/uL (4.8-10.8)
[2018-06-17 03:20] LABS: Albumin Level 3.4 gm/dl (3.4-5.0); BUN Creatinine Ratio 10.6 (10-20); Blood Urea Nitrogen 11 mg/dl (7-18); Calcium 8.2 mg/dl (8.5-10.1); Carbon Dioxide 24 mmol/L (21-32); Chloride 106 mmol/L (98-107); Est GFR (African American) 89.6; Est GFR (Non-African American) 77.3; Glucose 106 mg/dl (70-99); Potassium 3.7 mmol/L (3.5-5.1); Sodium 137 mmol/L (136-145)
[2018-06-17] MEDS ORDERED: ALBUT/IPRATROP 3MG/0.5MG NEB 3 ML VIAL NEB STA ×2 (03:39→04:37)
[2018-06-17 03:47] LABS: Alanine Aminotransferase 26 U/L (12-78); Alkaline Phosphatase 93 U/L (45-117); Aspartate Aminotransferase 21 U/L (15-37); Bilirubin,Total 0.5 mg/dl (0.2-1); Globulin 3.3 gm/dl (2.5-4.0); Total Protein 6.7 gm/dl (6.4-8.2); Troponin I < 0.015 ng/ml (0-0.045)
--- NOTE | 2018-06-17 06:06 | History & Physical Report ---
Date of Service June 17, 2018 Assessment & Plan (1) Chronic cough: 58 y/o M Hx CAD, HTN, HLD, obese. Presents with a productive cough, wheezing and SOB. He states that he has had this issue for 6 or more weeks. He was provided with a course of antibiotics and steroids and had improved initially. His symptoms returned a few days after completion of the steroid course and have acutely worsened over the past few days, A CTA from 05/02/18 demonstrated bronchitis without infiltrates. An XR on arrival to the ER does not show any acute abnormalities and labs are unremarkable. The pt displayed intermittent desaturation into the mid 80s while in the ER and is requiring supplemental 02 at the time of admission. 1) SOB, cough, wheezing - we will treat for bronchitis. He will be placed on nebs, antibiotics, steroids. We will consult pulmonology as his symptoms have persisted for an extended period. 2) HTN - cont Lisinopril, Metoprolol 3) HLD - Cont Atorvastatin 4) CAD - cont ASA, Plavix, Statin, B andressa 5) LE edema - cont Lasix Full code - Heparin prophylaxis Total time for this admit including review of labs, meds, imaging, records - discussion with pt and ER attending - 38 min Present on Admission?: Yes History of Present Illness Chief Complaint: COUGH, SOB Primary Care Provider: Hany Berrios 58 y/o M Hx CAD, HTN, HLD, obese. Presents with a productive cough, wheezing and SOB. He states that he has had this issue for 6 or more weeks. He was provided with a course of antibiotics and steroids and had improved initially. His symptoms returned a few days after completion of the steroid course and have acutely worsened over the past few days, A CTA from 05/02/18 demonstrated bronchitis without infiltrates. An XR on arrival to the ER does not show any acute abnormalities and labs are unremarkable. The pt displayed intermittent desaturation into the mid 80s while in the ER and is requiring supplemental 02 at the time of admission. PMH: 1) CAD - OR 2014 - stent to RCA - admitted for CP 04/2018 and underwent a cath which showed severe small vessel disease and a patent RCA stent. 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[employer], no smoking history, does not drink Allergies Allergy/AdvReac Type Severity Reaction Status Date / Time latex Allergy Mild RASH Unverified 06/17/18 04:30 Home Medications Home Medications Medication Instructions Recorded Confirmed Type aspirin [Aspirin Low Dose] 81 mg PO DAILY 04/26/18 06/17/18 History atorvastatin 40 mg PO DAILY 04/26/18 06/17/18 History clopidogrel [Plavix] 75 mg PO DAILY 04/26/18 06/17/18 History furosemide [Lasix] 40 mg PO DAILY 04/26/18 06/17/18 History lisinopril 10 mg PO DAILY 04/26/18 06/17/18 History metoprolol succinate 50 mg PO BID 04/26/18 06/17/18 History nitroglycerin [Nitrostat] 0.4 mg SUBLINGUAL DIRECTED PRN 04/26/18 06/17/18 History topiramate 50 mg PO BID 04/26/18 06/17/18 History ipratropium-albuterol [Combivent 1 puff INHALATION QID #1 inhaler 04/30/1806/17 Rx Respimat] Past Med/Surg History Medical History Chronic cough Pre-diabetes Nonsustained ventricular tachycardia Essential hypertension Morbid obesity with BMI of 50.0-59.9, adult Acute bronchitis CAD (coronary artery disease) Heart attack Hyperlipidemia Hypertension Obesity Social History marital status: Current Living Situation: Spouse Feels Safe at Home: Yes Smoking Status: Former smoker Second Hand Exposure: No Hx Alcohol Use: No Hx Substance Use: No Beliefs That Will Affect Care: None Preferred Language: Chinese Review of Systems General: Denies fevers, night sweats, weight loss, weight gain ENT: Denies throat pain, nasal congestion Eyes: Denies acute visual impairment, eye pain Cardiovascular: Denies CP, palpitations, PND, orthopnea Respiratory: + productive cough, wheezing, SOB > 6 weeks GI: Denies nausea, vomiting, diarrhea, constipation, GI bleeding : Denies dysuria, hesitancy, frequency, hematuria Neuro: Denies headache, lightheadedness, syncope, unilateral weakness, acute loss of balance, memory loss Endocrine: Denies polydypsia, polyuria Heme: Denies unexplained bruising Skin: Denies acute rash or ulcers Physical Exam 2 Vital Signs (Past 24 Hours): Last Vital Signs Pulse 80 06/17/18 05:27 Resp 18 06/17/18 05:29 BP 120/63 06/17/18 05:27 Pulse Ox 94 06/17/18 05:29 Physical Exam: General: AAO x 3, no distress ENT: No erythema or exudates, no thrush Eyes: MONICA, EOMI Head and neck: Normocephalic, atruamatic, No JVD, neck is supple. Chest/heart: Nontender, S1,2, RRR, no murmurs, no gallops Lungs: No audible crackles - exam limited by habitus , mild end-expiratory wheezing Abdomen: Nontender, nondistended, BS+ Neuro: AAO x 3, speech is clear, no unilateral weakness or loss of sensation, coordination intact Musculoskeletal: No joint inflammation, muscle tenderness, FROM Skin: No acute rashes or ulcers Extremities: No clubbing, cyanosis, edema Results & Data Diagnostic Findings CXR: No acute findings CTA 04/27/18 1. Allowing for suboptimal image quality, no evidence of pulmonary embolus. 2. Bronchial wall thickening and significant mosaic attenuation. This is most likely traveling sales representative of small airways and/or reactive airways disease. Less likely this mosaic attenuation pattern can be seen in the setting of a vascular etiology. No focal consolidation. Cardiac cath: 04/28/18 1. Mild nonobstructive coronary artery disease in major epicardial vessels Widely patent mid RCA stent with 30% stenosis just distal to stent. 2. Severe small branch vessel disease 95% second septal 40-50% ostial third diagonal 3. Normal intracardiac filling pressure
--- NOTE | 2018-06-17 07:09 | XRay Report ---
TWO VIEW CHEST CLINICAL HISTORY: Cough. FINDINGS: PA and lateral chest radiographs are compared to study dated 05/31/2018 and correlated with chest CT dated 04/27/2019. The heart is mildly enlarged and there is atherosclerotic calcification o f the thoracic aorta. The pulmonary vasculature is noncongested. Chronic interstitial thickening is s imilar to previous. There is no airspace consolidation or pleural effusion. There is no pneumothorax. The bony thorax appears intact. Degenerative change is noted throughout the thoracic spine. IMPRESSION: Mild cardiac enlargement with no acute cardiopulmonary abnormality. Electronically signed by: Mert German M.D. 06/17/2018 7:08 AM
[2018-06-17] MEDS ORDERED: LISINOPRIL 10 MG TAB PO SCH (09:04)
[2018-06-17] MEDS ORDERED: ZOLPIDEM TARTRATE 5 MG TAB PO PRN (09:04)
[2018-06-17] MEDS ORDERED: ALBUTEROL 0.083% NEBU SOLN 3 ML VIAL NEB PRN (09:04)
[2018-06-17] MEDS ORDERED: ACETAMINOPHEN 325 MG TAB PO PRN (09:04)
[2018-06-17] MEDS ORDERED: MAGNESIUM HYDROXIDE SUSP 30 ML UDC PO PRN (09:04)
[2018-06-17] MEDS ORDERED: ONDANSETRON INJ 2 MG/ML 2 ML VIAL IV PRN (09:04)
[2018-06-17] MEDS ORDERED: ATORVASTATIN 40 MG TAB PO SCH (09:04)
[2018-06-17] MEDS ORDERED: ALUMINUM/MAGNESIUM SUSP 30 ML UDC PO PRN (09:04)
[2018-06-17] MEDS ORDERED: NITROGLYCERIN SL 0.4 MG/TAB TAB SL PRN (09:04)
[2018-06-17] MEDS ORDERED: POLYETHYLENE (MIRALAX) 17 GM PACK PO PRN (09:04)
[2018-06-17] MEDS: ASPIRIN 81 MG ECTAB PO SCH (09:32)
[2018-06-17] MEDS: FUROSEMIDE 40 MG TAB PO SCH (09:32)
[2018-06-17] MEDS ORDERED: Nursing to Pharmacy Communication ONE (09:45)
[2018-06-17] MEDS: METOPROLOL SUCC 50MG EXT REL TAB PO SCH ×2 (09:46→21:02)
[2018-06-17] MEDS: CLOPIDOGREL BISULFATE 75 MG TAB PO SCH (09:47)
[2018-06-17] MEDS: TOPIRAMATE 50 MG TAB PO SCH ×2 (09:47→21:02)
[2018-06-17] MEDS ORDERED: LEVOFLOXACIN/D5W 750 MG/150 ML BAG IV SCH (10:00)
[2018-06-17 10:01] LABS: Prothrombin Time 10.4 Seconds (9.0-12.0)
[2018-06-17] MEDS: ALBUT/IPRATROP 3MG/0.5MG NEB 3 ML VIAL NEB SCH ×4 (11:09→18:52)
--- NOTE | 2018-06-17 11:17 | Emergency Department Note ---
History of Present Illness General Chief complaint: Cough Stated complaint: cough History of Present Illness This is a 58-year-old male that presents to the emergency department via private vehicle with complaints of "cough". The patient notes that he has had a cough for several months now and is unable to sleep. He notes he has a history of bronchitis as well as IN. He states that he was admitted here just before and when he is on antibiotics and steroid he is doing well, but when he is off of these his cough is worse. He notes difficulty breathing. His cough is productive. He has been using his inhalers without relief. He notes no history of asthma, COPD. He notes a history of smoking in the past but notes he no longer smokes. No history of clots. Home Medications Home Medications Medication Instructions Recorded Confirmed Type aspirin [Aspirin Low Dose] 81 mg PO DAILY 04/26/18 06/17/18 History atorvastatin 40 mg PO DAILY 04/26/18 06/17/18 History clopidogrel [Plavix] 75 mg PO DAILY 04/26/18 06/17/18 History furosemide [Lasix] 40 mg PO DAILY 04/26/18 06/17/18 History lisinopril 10 mg PO DAILY 04/26/18 06/17/18 History metoprolol succinate 50 mg PO BID 04/26/18 06/17/18 History nitroglycerin [Nitrostat] 0.4 mg SUBLINGUAL DIRECTED PRN 04/26/18 06/17/18 History topiramate 50 mg PO BID 04/26/18 06/17/18 History ipratropium-albuterol [Combivent 1 puff INHALATION QID #1 inhaler 04/30/1806/17 Rx Respimat] Allergies Allergy/AdvReac Type Severity Reaction Status Date / Time latex Allergy Mild RASH Unverified 06/17/18 04:30 Past Med/Surg History Medical History Chronic cough Pre-diabetes Nonsustained ventricular tachycardia Essential hypertension Morbid obesity with BMI of 50.0-59.9, adult Acute bronchitis CAD (coronary artery disease) Heart attack Hyperlipidemia Hypertension Obesity Surgical History H/O heart artery stent Family History Unknown CVA (cerebral vascular accident) Aortic aneurysm Diabetes Social History marital status: Current Living Situation: Spouse Other Information That Helps Us Care for You: No Feels Safe at Home: Yes Safety Concerns: Feels Safe At This Time Smoking Status: Former smoker Do You Dip or Chew Tobacco: Yes (chew 1/2 can) Second Hand Exposure: No Hx Alcohol Use: No Hx Substance Use: No Beliefs That Will Affect Care: None Preferred Language: Maldivian Communication Ability: Effective Review of Systems A total of 10 systems reviewed and were otherwise negative Physical Exam Vital Signs Vital Signs - 24 hr 06/17/18 02:23 06/17/18 02:26 06/17/18 03:00 Temperature Temperature Source Pulse Rate 69 83 66 Pulse Rate [Bilateral] 66 Pulse Rate [Radial] Pulse Rhythm [Bilateral] Regular Pulse Strength [Bilateral] Normal Respiratory Rate 24 20 22 Respiratory Effort / Characteristics Non-Labored Spontaneous Respiratory Depth Normal Respiratory Pattern Regular Blood Pressure 104/75 Blood Pressure [Right Arm] 101/58 L Blood Pressure Mean 84 Blood Pressure Mean [Right Arm] 72 Blood Pressure Position [Right Arm] Sitting Pulse Oximetry 97 97 90 Oxygen Delivery Method Room Air Nasal Cannula Oxygen Flow Rate 06/17/18 03:01 06/17/18 04:00 06/17/18 04:01 Temperature Temperature Source Pulse Rate 64 64 Pulse Rate [Bilateral] 76 Pulse Rate [Radial] Pulse Rhythm [Bilateral] Regular Pulse Strength [Bilateral] Normal Respiratory Rate 18 19 Respiratory Effort / Characteristics Spontaneous Labored Respiratory Depth Deep Respiratory Pattern Regular Blood Pressure 101/58 L 120/60 Blood Pressure [Right Arm] 120/60 Blood Pressure Mean 72 80 Blood Pressure Mean [Right Arm] 80 Blood Pressure Position [Right Arm] Sitting Pulse Oximetry 90 99 99 Oxygen Delivery Method Room Air Oxygen Flow Rate 06/17/18 05:00 06/17/18 05:01 06/17/18 05:27 Temperature Temperature Source Pulse Rate 69 62 Pulse Rate [Bilateral] 80 Pulse Rate [Radial] Pulse Rhythm [Bilateral] Regular Pulse Strength [Bilateral] Normal Respiratory Rate 18 18 20 Respiratory Effort / Characteristics Non-Labored Spontaneous Respiratory Depth Normal Respiratory Pattern Blood Pressure 120/63 Blood Pressure [Right Arm] 120/63 Blood Pressure Mean 82 Blood Pressure Mean [Right Arm] 82 Blood Pressure Position [Right Arm] Sitting Pulse Oximetry 97 98 86 L Oxygen Delivery Method Room Air Oxygen Flow Rate 06/17/18 05:29 06/17/18 06:08 06/17/18 06:09 Temperature Temperature Source Pulse Rate 86 86 Pulse Rate [Bilateral] Pulse Rate [Radial] Pulse Rhythm [Bilateral] Pulse Strength [Bilateral] Respiratory Rate 18 8 L 21 Respiratory Effort / Characteristics Non-Labored Spontaneous Respiratory Depth Normal Respiratory Pattern Regular Blood Pressure 123/64 Blood Pressure [Right Arm] Blood Pressure Mean 83 Blood Pressure Mean [Right Arm] Blood Pressure Position [Right Arm] Pulse Oximetry 94 94 Oxygen Delivery Method Nasal Cannula Oxygen Flow Rate 2 06/17/18 07:00 06/17/18 07:01 06/17/18 07:50 Temperature Temperature Source Pulse Rate 80 79 Pulse Rate [Bilateral] Pulse Rate [Radial] Pulse Rhythm [Bilateral] Pulse Strength [Bilateral] Respiratory Rate 16 18 Respiratory Effort / Characteristics Non-Labored Spontaneous Respiratory Depth Normal Respiratory Pattern Regular Blood Pressure 111/70 Blood Pressure [Right Arm] Blood Pressure Mean 83 Blood Pressure Mean [Right Arm] Blood Pressure Position [Right Arm] Pulse Oximetry 91 90 Oxygen Delivery Method Nasal Cannula Oxygen Flow Rate 2 06/17/18 08:00 06/17/18 08:01 06/17/18 09:04 Temperature 36.8 C Temperature Source Oral Pulse Rate 84 80 Pulse Rate [Bilateral] 79 Pulse Rate [Radial] Pulse Rhythm [Bilateral] Pulse Strength [Bilateral] Respiratory Rate 26 H 27 H 22 Respiratory Effort / Characteristics Respiratory Depth Respiratory Pattern Blood Pressure 121/61 Blood Pressure [Right Arm] 162/81 H Blood Pressure Mean 81 Blood Pressure Mean [Right Arm] 108 Blood Pressure Position [Right Arm] Pulse Oximetry 92 93 97 Oxygen Delivery Method Room Air Oxygen Flow Rate 06/17/18 11:09 Temperature Temperature Source Pulse Rate Pulse Rate [Bilateral] Pulse Rate [Radial] 84 Pulse Rhythm [Bilateral] Pulse Strength [Bilateral] Respiratory Rate 16 Respiratory Effort / Characteristics Non-Labored Spontaneous Respiratory Depth Respiratory Pattern Blood Pressure Blood Pressure [Right Arm] Blood Pressure Mean Blood Pressure Mean [Right Arm] Blood Pressure Position [Right Arm] Pulse Oximetry 95 Oxygen Delivery Method Room Air Oxygen Flow Rate VITAL SIGNS - Vital signs and nursing notes were reviewed. Hypertensive. Otherwise stable. GENERAL -58-year-old male appearing his stated age who is in no acute distress, but is coughing a lot in the examination room and is producing some sputum and there is audible wheezing. Communicates well with provider and answers questions appropriately. SKIN - Without rashes. No meningeal or petechial rash. HEAD - NC/AT. EYES - PERRL with EOMI bilaterally. Sclera anicteric. EARS - No deformities of external structures noted on gross examination bilaterally. NOSE - Midline and without cyanosis. No epistaxis or purulent drainage noted. MOUTH/OROPHARYNX - Without perioral cyanosis. Buccal mucosa pink and moist and without leukoplakia. Tongue midline with equal elevation of palate bilaterally. No tonsillar hypertrophy, erythema, or exudates noted. There dentition noted. NECK - Neck with FROM. Supple to palpation. No lymphadenopathy noted. No nuchal rigidity. LUNGS - Chest wall symmetric without accessory muscle use, intercostals retractions, or central cyanosis. There is diffuse bilateral wheezing noted both inspiratory and expiratory. Minimal crackles. CARDIAC - RRR with S1/S2. No murmur, rubs, or gallops appreciated. EXTREMITIES - No clubbing or peripheral cyanosis.+5/5 strength noted in UE/LE bilaterally. NEUROLOGIC - Cranial nerves II through XII grossly intact. PSYCH - A&O, and cooperates fully with examiner. Pt is very pleasant and interacts well with examiner. Course Administered Medications Albuterol (Duoneb) 3 ml NEB QIDR [facility] Stop: 07/17/18 09:03 Last Admin: 06/17/18 11:09 Dose: 3 ml Admin: 06/17/18 11:09 Dose: Not Given Aspirin (Ecotrin) 81 mg PO DAILY [facility] Stop: 07/17/18 09:03 Last Admin: 06/17/18 09:32 Dose: 81 mg Clopidogrel Bisulfate (Plavix) 75 mg PO DAILY [facility] Stop: 07/17/18 09:03 Last Admin: 06/17/18 09:47 Dose: 75 mg Furosemide (Lasix) 40 mg PO DAILY [facility] Stop: 07/17/18 09:03 Last Admin: 06/17/18 09:32 Dose: 40 mg Levofloxacin/Dextrose (Levaquin/D5w) 750 mg in 150 mls @ 100 mls/hr IV Q24H [facility] Stop: 06/24/18 09:59 Last Admin: 06/17/18 09:31 Dose: 100 mls/hr Lisinopril (Zestril) 10 mg PO DAILY [facility] Stop: 07/17/18 09:03 Last Admin: 06/17/18 09:32 Dose: 10 mg Metoprolol Succinate (Toprol Xl) 50 mg PO BID [facility] Stop: 07/17/18 09:03 Last Admin: 06/17/18 09:46 Dose: 50 mg Topiramate (Topamax) 50 mg PO BID [facility] Stop: 07/17/18 09:03 Last Admin: 06/17/18 09:47 Dose: 50 mg Discontinued Medications Albuterol (Duoneb) 3 ml NEB NOW STA Stop: 06/17/18 03:40 Last Admin: 06/17/18 03:50 Dose: 3 ml Albuterol (Duoneb) 3 ml NEB NOW STA Stop: 06/17/18 04:38 Last Admin: 06/17/18 04:55 Dose: 3 ml Atorvastatin Calcium (Lipitor) 40 mg PO DAILY [facility] Stop: 07/17/18 09:03 Last Admin: 06/17/18 09:47 Dose: Not Given Methylprednisolone (Solumedrol) 125 mg IV NOW STA Stop: 06/17/18 02:58 Last Admin: 06/17/18 03:09 Dose: 125 mg Medical Decision Making Laboratory Data Result diagrams: 06/17/18 02:20 06/17/18 02:20 Lab Results 06/17/18 06/17/18 06/17/18 Range/Units 02:20 02:20 09:29 WBC 9.85 (4.8-10.8) K/uL RBC 4.60 L (4.7-6.1) M/uL Hgb 14.1 (14.0-18.0) g/dL Hct 40.4 L (42-52) % MCV 87.8 (80-100) fL MCH 30.7 (25-34) pg MCHC 34.9 (32-36) g/dL RDW Std Deviation 45.8 (36.4-46.3) fL RDW Coeff of [place] 14.3 (11.5-14.5) % Plt Count 272 (130-400) K/uL MPV 9.0 (7.4-10.4) fL PT 10.4 (9.0-12.0) Seconds INR 1.0 (0.9-1.1) Sodium 137 (136-145) mmol/L Potassium 3.7 (3.5-5.1) mmol/L Chloride 106 (98-107) mmol/L Carbon Dioxide 24 (21-32) mmol/L Anion Gap 7.0 (3-11) BUN 11 (7-18) mg/dl Creatinine 1.05 (0.6-1.4) mg/dl Est Cr Clr Drug Dosing Not Reportable Est GFR ( Amer) 89.6 Est GFR (Non-Af Amer) 77.3 BUN/Creatinine Ratio 10.6 (10-20) Glucose 106 H (70-99) mg/dl Calcium 8.2 L (8.5-10.1) mg/dl Total Bilirubin 0.5 (0.2-1) mg/dl AST 21 (15-37) U/L ALT 26 (12-78) U/L Alkaline Phosphatase 93 (45-117) U/L Troponin I < 0.015 (0-0.045) ng/ml Total Protein 6.7 (6.4-8.2) gm/dl Albumin 3.4 (3.4-5.0) gm/dl Globulin 3.3 (2.5-4.0) gm/dl Albumin/Globulin Ratio 1.0 (0.9-2) Specimen Hemolysis Imaging Data Radiologist's Impression: TWO VIEW CHEST CLINICAL HISTORY: Cough. FINDINGS: PA and lateral chest radiographs are compared to study dated 2017 and correlated with chest CT dated 04/27/2019. The heart is mildly enlarged and there is atherosclerotic calcification of the thoracic aorta. The pulmonary vasculature is noncongested. Chronic interstitial thickening is similar to previous. There is no airspace consolidation or pleural effusion. There is no pneumothorax. The bony thorax appears intact. Degenerative change is noted throughout the thoracic spine. IMPRESSION: Mild cardiac enlargement with no acute cardiopulmonary abnormality. Electronically signed by: Mert German M.D. 06/17/2018 7:08 AM [facility] Narrative Patient was seen and evaluated as above in room B5. Review was performed of nursing notes and vital signs. After obtaining a thorough history and physical examination the above work up was performed. He presents to us today with a cough. There is a large amount of wheezing noted bilaterally and is audible without need of a stethoscope. He does appear fatigued. Vital signs are stable. X-ray was obtained and is similar to previous without acute process noted. Baseline labs were obtained. CBC reveals no significant leukocytosis or concerning anemia. No metabolic emergency noted. Patient's troponin is negative. An EKG was performed and reveals normal sinus rhythm, rate of 77 bpm. I do not suspect ACS. I suspect likely bronchitis. 125mg of Solu-Medrol was provided IV for the patient's respiratory difficulties as well as breathing treatments x3. He had very minimal improvement with any of these. He also had a period of hypoxia while here in the department. I do believe that further evaluation and management is warranted in the inpatient setting. Patient case discussed with the attending physician, and subsequently the hospitalist. Please refer to further documentation regarding his stay. In the evaluation and treatment of this patient, the following differential diagnoses were considered: IN, ASC, Dysrhythmia, Angina, Mediastinitis, GERD, Esophagitis, PE, Pneumonia, Bronchitis, Costochondritis, Rib Fracture, Zoster. Impression & Plan Acute bronchitis, Hypoxia Discharge Plan Visit Data *Final* Discharge Date/Time: 06/17/18 08:09 Chief Complaint: Cough Stated Complaint: cough ED Provider: Autumn Bernstein ED Midlevel Provider: Howard Schulte Discharge Problem: Acute bronchitis, Hypoxia Patient Disposition: Admitted As Inpatient Condition: Good Discharge Instructions Interventions: ED Discharge Assessment Last Done: 06/17/18 08:09
[2018-06-17] MEDS: HEPARIN SOD 5,000 UNIT/0.5 ML VIAL SQ SCH ×2 (13:31→21:03)
[2018-06-17] MEDS: ATORVASTATIN 40 MG TAB PO SCH (21:02)
--- NOTE | 2018-06-17 21:07 | Pulmonary Consultation ---
Date of Consultation June 17, 2018 Assessment & Plan (1) Chronic cough: Impression: 1. Chronic cough secondary to MICHAELA inhibitor until proven otherwise. 2. History of GERD which she has not been taking the treatment for it. He was treated in the past. 3. Morbid obesity with obstructive sleep apnea that has not been treated, the patient already has cardiac event. Status post PCI. Plan: 1. Discontinue antibiotics. 2. Discontinue lisinopril. 3. Start the patient on losartan 25 mg p.o. daily, if the cough persists, changing the treatment to alternative therapy that is not related to MICHAELA inhibitor or ARB. 4. Aggressive treatment of GERD with PPI twice daily. 5. Continue with the treatment of cardiomyopathy, especially diuresis. 6. Doubt any benefit from bronchodilators. Patient does not have symptoms of wheezing, his exercise capacity is great, he does not have pulmonary function test in the past, no history of asthma or COPD and he is non-smoker. 7. Patient can be discharged home with follow-up with pulmonary, his obstructive sleep apnea needs to be treated aggressively. Thank you, will follow as needed. History of Present Illness Reason for Consultation: Persistent cough. Requesting Physician: Dr. Cates Attending Physician: Selvin Cates MD History of Present Illness Dear : Thank you for your kind referral of Mr. Mendiola to pulmonary service. This is 58-year-old gentleman with history of coronary artery disease, status post stent placement, history of morbid obesity, obstructive sleep apnea which she has been tested for it in the past many years ago but has not followed any therapy, presented to the hospital after the. Of cough for the past 2 months. The patient recently had a cardiac cath done by Dr. Fatima in April 2018. The patient for the past 2 months has been having persistent cough not relieved by any of the modalities that he received. He received multiple courses of antibiotics, steroids, and started also on bronchodilator as an outpatient, but the cough has been persistent. No sputum production, no hemoptysis, it was positional, and the patient felt that the cough is getting worse in laying down in supine position. 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 His was at the bedside as well. Patient himself denies any chest pain the moment, no nausea or vomiting reported , no postnasal drip or rhinorrhea, no constitutional symptoms, no sick contacts , he does have increased swelling in his lower extremities which has been chronic. The rest of his review of system apart from the above was unremarkable. The patient recently was started on lisinopril for the past 5 years, and the dose was increased for the past 2 months. Patient is non-smoker lifetime, no secondhand exposure to smoking, no industrial exposure. Family history does not contribute to his current illness. Allergies Allergy/AdvReac Type Severity Reaction Status Date / Time latex Allergy Mild RASH Unverified 06/17/18 04:30 Home Medications Home Medications Medication Instructions Recorded Confirmed Type aspirin [Aspirin Low Dose] 81 mg PO DAILY 04/26/18 06/17/18 History atorvastatin 40 mg PO DAILY 04/26/18 06/17/18 History clopidogrel [Plavix] 75 mg PO DAILY 04/26/18 06/17/18 History furosemide [Lasix] 40 mg PO DAILY 04/26/18 06/17/18 History lisinopril 10 mg PO DAILY 04/26/18 06/17/18 History metoprolol succinate 50 mg PO BID 04/26/18 06/17/18 History nitroglycerin [Nitrostat] 0.4 mg SUBLINGUAL DIRECTED PRN 04/26/18 06/17/18 History topiramate 50 mg PO BID 04/26/18 06/17/18 History ipratropium-albuterol [Combivent 1 puff INHALATION QID #1 inhaler 04/30/1806/17 Rx Respimat] Patient History Medical History Chronic cough Pre-diabetes Nonsustained ventricular tachycardia Essential hypertension Morbid obesity with BMI of 50.0-59.9, adult Acute bronchitis (Acute) CAD (coronary artery disease) Heart attack Hyperlipidemia Hypertension Obesity Surgical History H/O heart artery stent Family History Unknown CVA (cerebral vascular accident) Aortic aneurysm Diabetes Social History marital status: Current Living Situation: Spouse Other Information That Helps Us Care for You: No Feels Safe at Home: Yes Safety Concerns: Feels Safe At This Time Smoking Status: Former smoker Do You Dip or Chew Tobacco: Yes (chew 1/2 can) Second Hand Exposure: No Hx Alcohol Use: No Hx Substance Use: No Beliefs That Will Affect Care: None Preferred Language: Citizen Of [place] Communication Ability: Effective Review of Systems Review of system otherwise was unremarkable. Physical Exam 2 Vital Signs (Past 24 Hours): Last Vital Signs Temp 37 C 06/17/18 15:10 Pulse 77 06/17/18 18:52 Resp 16 06/17/18 18:52 BP 134/57 L 06/17/18 15:10 Pulse Ox 95 06/17/18 18:52 Physical Exam: S1-S2, no stridor, lungs are clear, abdomen is benign, edema in the periphery noted, morbid obesity, oral mucosa appears normal. No rash. Results & Data Laboratory Results No leukocytosis, no left shift or bandemia. Diagnostic Findings Chest x-ray with cardiomegaly, no infiltrate.
[2018-06-18] MEDS: HEPARIN SOD 5,000 UNIT/0.5 ML VIAL SQ SCH ×3 (06:01→20:30)
[2018-06-18] MEDS: ALBUT/IPRATROP 3MG/0.5MG NEB 3 ML VIAL NEB SCH ×4 (07:22→19:35)
[2018-06-18] MEDS: TOPIRAMATE 50 MG TAB PO SCH ×2 (08:20→20:29)
[2018-06-18] MEDS: LOSARTAN POTASSIUM 25 MG TAB PO SCH (08:21)
[2018-06-18] MEDS: METOPROLOL SUCC 50MG EXT REL TAB PO SCH ×2 (08:21→20:30)
[2018-06-18] MEDS: FUROSEMIDE 40 MG TAB PO SCH (08:21)
[2018-06-18] MEDS: ASPIRIN 81 MG ECTAB PO SCH (08:21)
[2018-06-18] MEDS: CLOPIDOGREL BISULFATE 75 MG TAB PO SCH (08:21)
[2018-06-18] MEDS ORDERED: COUGH DROP (SUGAR FREE) LOZ 24 LOZ/1 BOX BUCCAL ONE (08:24)
[2018-06-18] MEDS ORDERED: SODIUM CHLORIDE 0.65% NA SOLN 45 ML (OCEAN) ONE (08:24)
[2018-06-18] MEDS ORDERED: guaiFENesin SUGAR FREE 200 MG/10 ML UDC PO PRN (09:12)
[2018-06-18] MEDS: CETIRIZINE HCL 10 MG TABLET PO SCH (11:40)
--- NOTE | 2018-06-18 14:16 | Hospitalist Progress Note ---
Date of Service June 18, 2018 Assessment & Plan (1) Chronic cough: 58 y/o M admitted because of bronchitis on June 17, 2018, with a productive cough, wheezing and SOB. Hx CAD, HTN, HLD, obese. Acute bronchitis with SOB, cough, wheezing For the cough differential diagnosis include pharyngitis, lisinopril induced cough, and bronchitis, Patient do not have full throat, Report remote history of smoking, Denies any recent sick contact, cindy continue treat for bronchitis. add Zyrtec We will follow-up the consult to pulmonology as his symptoms have persisted for an extended period. Nebulizer treatment, continue Levaquin will give Robitussin Other medical conditions include hypertension, dyslipidemia, CAD, left lower extremity lymphedema, will continue current care follow-up with PCP Full code Subjective Have dry cough, uncomfortable, No sputum, No chest pain palpitation, Review of Systems Constitutional: Mild weakness, or fatigue Respiratory: no wheezing, or dyspnea on exertion Cardiac: No chest pain, No orthopnea, No PND, No claudication, No palpitations , Abdomen: No pain, No nausea, No vomiting, No diarrhea, No constipation, No GI bleeding Musculoskeletal: No joint pain, No muscle pain, trace swelling, No calf pain, No problem reported : No dysuria, No urinary frequency, No incontinence, No hematuria Neurologic: No paralysis, No weakness, No numbness/tingling, No vertigo, No balance problems Psychiatric: No depression symptoms, No anhedonism, No anxiety, No insomnia, No substance abuse Heme: No abnormal bleeding/bruising, No clotting problems, No swollen lymph nodes, No night sweats Skin: No rash, No itch, No new/changing skin lesions, No color change, No bleeding Physical Exam 2 Vital Signs (Past 24 Hours): Last Vital Signs Temp 36.4 C L 06/18/18 07:55 Pulse 80 06/18/18 11:03 Resp 18 06/18/18 11:03 BP 142/61 H 06/18/18 07:55 Pulse Ox 95 06/18/18 11:03 Physical Exam: General Appearance: Obesity BMI 52, WD/WN, no apparent distress , Eyes: normal inspection, PERRL, EOMI, sclerae normal ENT: normal ENT inspection, hearing grossly normal, pharynx normal Neck: supple, no adenopathy, thyroid normal, no JVD, no carotid bruits, trachea midline Respiratory/Chest: chest non-tender, significant breath sounds, no respiratory distress, no accessory muscle use, breath sounds, rales, wheezing Cardiovascular: regular rate, rhythm, no JVD, no murmur Abdomen: normal bowel sounds, non tender, soft, no organomegaly, Extremities: normal range of motion, non-tender, normal inspection, 1+ pedal edema, no calf tenderness, normal capillary refill , pelvis stable, joint has no limited range of motion, capillary refill is normal, no cyanosis clubbing Neurologic/Psychiatric: 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
[2018-06-18] MEDS: ATORVASTATIN 40 MG TAB PO SCH (20:30)
[2018-06-19] MEDS: HEPARIN SOD 5,000 UNIT/0.5 ML VIAL SQ SCH ×3 (05:56→20:43)
[2018-06-19] MEDS: ALBUT/IPRATROP 3MG/0.5MG NEB 3 ML VIAL NEB SCH ×4 (07:15→19:25)
[2018-06-19] MEDS: FUROSEMIDE 40 MG TAB PO SCH (08:20)
[2018-06-19] MEDS: LOSARTAN POTASSIUM 25 MG TAB PO SCH (08:20)
[2018-06-19] MEDS: ASPIRIN 81 MG ECTAB PO SCH (08:20)
[2018-06-19] MEDS: CLOPIDOGREL BISULFATE 75 MG TAB PO SCH (08:21)
[2018-06-19] MEDS: METOPROLOL SUCC 50MG EXT REL TAB PO SCH ×2 (08:21→20:41)
[2018-06-19] MEDS: TOPIRAMATE 50 MG TAB PO SCH ×2 (08:21→20:42)
[2018-06-19] MEDS: CETIRIZINE HCL 10 MG TABLET PO SCH (08:21)
[2018-06-19] MEDS: PANTOprazole 40 MG TAB PO SCH (11:09)
[2018-06-19] MEDS: predniSONE 20 MG TAB PO SCH ×2 (11:09→20:41)
--- NOTE | 2018-06-19 15:34 | Hospitalist Progress Note ---
Date of Service June 19, 2018 Assessment & Plan (1) Chronic cough: 58 y/o M admitted because of bronchitis on June 17, 2018, with a productive cough, wheezing and SOB. Hx CAD, HTN, HLD, obese. Acute bronchitis with SOB, cough, wheezing , minimal improving, For the cough differential diagnosis include pharyngitis, lisinopril induced cough, and bronchitis, Patient do not have sore throat, Report remote history of smoking, Denies any recent sick contact, cindy continue treat for bronchitis. add Umesh , pulmonology appreciated, Will start oral prednisone because patient has a history of possible active bronchitis per previous chest CT studies, about starting oral Prednisone, I have discussed with patient about the risk and benefit he understand and agreed to take all the risk of increased blood glucose, will continue Levaquin, and Robitussin Other medical conditions include hypertension, dyslipidemia, CAD, left lower extremity lymphedema, will continue current care follow-up with PCP Minimal elevated and possible accelerated hypertension, will continue current medication and watch Increase activity PTOT, Need to have follow-up with PCP or professor of journalism or to have further evaluation and treatment, possible outpatient sleep studies for possible obstructive sleep apnea Full code Increase activity Subjective Still has a lot of dry hacking cough, no obvious uncomfortable, No sputum,No chest pain palpitation, sleeping well, no other complaint Review of Systems Constitutional: Mild weakness, or fatigue Respiratory: no wheezing, or dyspnea on exertion Cardiac: No chest pain, No orthopnea, No PND, No claudication, No palpitations , Abdomen: No pain, No nausea, No vomiting, No diarrhea, No constipation, No GI bleeding Musculoskeletal: No joint pain, No muscle pain, trace swelling, No calf pain, No problem reported : No dysuria, No urinary frequency, No incontinence, No hematuria Neurologic: No paralysis, No weakness, No numbness/tingling, No vertigo, No balance problems Psychiatric: No depression symptoms, No anhedonism, No anxiety, No insomnia, No substance abuse Heme: No abnormal bleeding/bruising, No clotting problems, Skin: No rash, No itch, No new/changing skin lesions, No color change, No bleeding Physical Exam 2 Vital Signs (Past 24 Hours): Last Vital Signs Temp 36.6 C 06/19/18 08:02 Pulse 64 06/19/18 14:41 Resp 18 06/19/18 14:41 BP 156/74 H 06/19/18 08:02 Pulse Ox 96 06/19/18 14:41 Physical Exam: General Appearance: Obesity BMI 52, WD/WN, Eyes: normal inspection, PERRL, EOMI, sclerae normal ENT: normal ENT inspection, hearing grossly normal, pharynx normal Neck: supple, no adenopathy, thyroid normal, no JVD, no carotid bruits, trachea midline Respiratory/Chest: chest non-tender, significant decreased breath sounds, no respiratory distress, no accessory muscle use, breath sounds, rales, wheezing Cardiovascular: regular rate, rhythm, no JVD, no murmur Abdomen: normal bowel sounds, non tender, soft, no organomegaly, Extremities: normal range of motion, non-tender, normal inspection, 1+ pedal edema, no calf tenderness, normal capillary refill , pelvis stable, joint has no limited range of motion, capillary refill is normal, no cyanosis clubbing Neurologic/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
[2018-06-19] MEDS: ATORVASTATIN 40 MG TAB PO SCH (20:41)
[2018-06-20] MEDS: HEPARIN SOD 5,000 UNIT/0.5 ML VIAL SQ SCH (05:45)
[2018-06-20 06:13] LABS: BUN Creatinine Ratio 16.9 (10-20); Calcium 8.5 mg/dl (8.5-10.1); Creatinine Clr Calc Pharmacy 145.7 ml/min; Est GFR (Non-African American) 93.2; Magnesium 2.3 mg/dl (1.8-2.4); Phosphorus 2.5 mg/dl (2.5-4.9); Potassium 4.1 mmol/L (3.5-5.1)
[2018-06-20] MEDS: ALBUT/IPRATROP 3MG/0.5MG NEB 3 ML VIAL NEB SCH (07:13)
[2018-06-20] MEDS: PANTOprazole 40 MG TAB PO SCH (08:01)
[2018-06-20] MEDS: TOPIRAMATE 50 MG TAB PO SCH (08:02)
[2018-06-20] MEDS: METOPROLOL SUCC 50MG EXT REL TAB PO SCH (08:02)
[2018-06-20] MEDS: LOSARTAN POTASSIUM 25 MG TAB PO SCH (08:02)
[2018-06-20] MEDS: CLOPIDOGREL BISULFATE 75 MG TAB PO SCH (08:02)
[2018-06-20] MEDS: predniSONE 20 MG TAB PO SCH (08:03)
[2018-06-20] MEDS: FUROSEMIDE 40 MG TAB PO SCH (08:03)
[2018-06-20] MEDS: CETIRIZINE HCL 10 MG TABLET PO SCH (08:03)
[2018-06-20] MEDS: ASPIRIN 81 MG ECTAB PO SCH (08:03)
--- NOTE | 2018-06-20 15:52 | Discharge Summary ---
Date of Service June 20, 2018 Admission HPI Per Admitting Provider 58 y/o M Hx CAD, HTN, HLD, obese. Presents with a productive cough, wheezing and SOB. He states that he has had this issue for 6 or more weeks. He was provided with a course of antibiotics and steroids and had improved initially. His symptoms returned a few days after completion of the steroid course and have acutely worsened over the past few days, A CTA from 05/02/18 demonstrated bronchitis without infiltrates. An XR on arrival to the ER does not show any acute abnormalities and labs are unremarkable. The pt displayed intermittent desaturation into the mid 80s while in the ER and is requiring supplemental 02 at the time of admission. PMH: 1) CAD - [place] 2014 - stent to RCA - admitted for CP 04/2018 and underwent a cath which showed severe small vessel disease and a patent RCA stent. 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 Hx CAD, HTN, HLD, obese. Acute bronchitis with SOB, cough, wheezing , minimal improving, For the cough differential diagnosis include pharyngitis, lisinopril induced cough, and bronchitis, Patient do not have sore throat, Report remote history of smoking, Denies any recent sick contact, cindy continue treat for bronchitis. add Umesh , pulmonology appreciated, Will start oral prednisone because patient has a history of possible active bronchitis per previous chest CT studies, about starting oral Prednisone, I have discussed with patient about the risk and benefit he understand and agreed to take all the risk of increased blood glucose, will continue Levaquin, and Robitussin Other medical conditions include hypertension, dyslipidemia, CAD, left lower extremity lymphedema, will continue current care follow-up with PCP Minimal elevated and possible accelerated hypertension, will continue current medication and watch Increase activity PTOT, Need to have follow-up with PCP or post anesthesia room nurse or to have further evaluation and treatment, possible outpatient sleep studies for possible obstructive sleep apnea On discharge today: S: Doing well cough is better, no difficult breathing, no wheezing no obvious uncomfortable, No sputum,No chest pain palpitation, sleeping well, no other complaint Review of Systems Constitutional: Mild weakness, or fatigue Respiratory: no wheezing, or dyspnea on exertion Cardiac: No chest pain, No orthopnea, No PND, No claudication, No palpitations , Abdomen: No pain, No nausea, No vomiting, No diarrhea, No constipation, No GI bleeding Musculoskeletal: No joint pain, No muscle pain, trace swelling, No calf pain, No problem reported : No dysuria, No urinary frequency, No incontinence, No hematuria Neurologic: No paralysis, No weakness, No numbness/tingling, No vertigo, No balance problems Psychiatric: No depression symptoms, No anhedonism, No anxiety, No insomnia, No substance abuse Heme: No abnormal bleeding/bruising, No clotting problems, Skin: No rash, No itch, No new/changing skin lesions, No color change, No bleeding Physical Exam upon discharge General Appearance: Obesity BMI 52, WD/WN, Eyes: normal inspection, PERRL, EOMI, sclerae normal ENT: normal ENT inspection, hearing grossly normal, pharynx normal Neck: supple, no adenopathy, thyroid normal, no JVD, no carotid bruits, trachea midline Respiratory/Chest: chest non-tender, significant decreased breath sounds, however much better airway movement compared to yesterday, , no respiratory distress, no accessory muscle use, breath sounds, rales, wheezing Cardiovascular: regular rate, rhythm, no JVD, no murmur Abdomen: normal bowel sounds, non tender, soft, no organomegaly, Extremities: normal range of motion, non-tender, normal inspection, 1+ pedal edema, no calf tenderness, normal capillary refill , pelvis stable, joint has no limited range of motion, capillary refill is normal, no cyanosis clubbing Neurologic/Psychiatric: actimize architect II-XII nml as tested, no motor/sensory deficits, Skin: normal color, warm/dry, no rash Lymphatic: no adenopathy Lab data upon discharge: Laboratory Results - last 24 hr 06/19/18 06/19/18 06/20/18 16:36 20:00 05:25 Sodium 138 Potassium 4.1 Chloride 108 H Carbon Dioxide 23 Anion Gap 6.0 BUN 15 Creatinine 0.90 Est Cr Clr Drug Dosing 145.7 Est GFR ( Amer) 108.0 Est GFR (Non-Af Amer) 93.2 BUN/Creatinine Ratio 16.9 Glucose 153 H POC Glucose 192 H 179 H Calcium 8.5 Phosphorus 2.5 Magnesium 2.3 06/20/18 07:41 Sodium Potassium Chloride Carbon Dioxide Anion Gap BUN Creatinine Est Cr Clr Drug Dosing Est GFR ( Amer) Est GFR (Non-Af Amer) BUN/Creatinine Ratio Glucose POC Glucose 148 H Calcium Phosphorus Magnesium most important information upon discharge: Acute bronchitis, cough also could possible from side effect of lisinopril , which is changed to Losartan will continue Zyrtec , tapering dose of Prednisone because patient has a history of possible active bronchitis per previous chest CT studies continue Levaquin, and Robitussin need to follow up with pcp for outpatient sleep studies for possible obstructive sleep apnea Total Time Total Time Spent Total Time Spent (In Minutes): 35 Discharge Plan Discharge Items Patient Disposition: Home - Self-Care Reason For Visit: SHORTNESS OF BREATH, COUGH Discharge Diagnosis: bronchitis Condition: Good Discharge Goals: Decrease discomfort and Diagnostic testing Activity: Resume your previous activity Non-emergency contact: Primary Care Provider and Runner Out Call non-emergency contact if: you have any medication questions Diet: Heart Healthy Addtl Provider Instructions: you have Acute bronchitis cough also could possible from side effect of lisinopril , I change it to Losartan will continue Zyrtec , tapering dose of Prednisone because patient has a history of possible active bronchitis per previous chest CT studies continue Levaquin, and Robitussin you need to follow up with pcp for outpatient sleep studies for possible obstructive sleep apnea you need to follow up with your primary care physician in 1 week, - take medication as instructed, never overdose or any misuse, or take with alcohol, because misuse of medicine may cause organ damage or , call me , or your primary care physician if have questions of discharge medicaitons. - call your primary care physician, or go to local emergency room if has any fever/chill, chest pain, shortness of breathing, nausea/vomiting/abdominal pain , facial droop/slurry speech/local weakness, or if has any questions. - fall precaution - diet as instructed - you need to follow up with your subspecialist, such as Pulmonary Prescriptions: New cetirizine 10 mg Tablet 10 mg PO QAM 10 Days Qty: 10 RF: 0 prednisone 20 mg Tablet 40 mg PO BID Qty: 15 RF: 0 pantoprazole 40 mg Tablet,Delayed Release (Dr/Ec) 40 mg PO QAM 30 Days Qty: 30 RF: 0 losartan 25 mg Tablet 25 mg PO QAM 30 Days Qty: 30 RF: 0 guaifenesin 100 mg/5 mL Liquid 10 ml PO Q6H PRN (Reason: cough) 5 Days Qty: 100 RF: 0 levofloxacin [Levaquin] 750 mg tablet 750 mg PO DAILY 7 Days Qty: 7 RF: 0 Continue furosemide [Lasix] 40 mg Tablet 40 mg PO DAILY RF: 0 atorvastatin 40 mg Tablet 40 mg PO DAILY RF: 0 metoprolol succinate 50 mg Tablet Extended Release 24 Hr 50 mg PO BID RF: 0 clopidogrel [Plavix] 75 mg Tablet 75 mg PO DAILY RF: 0 aspirin [Aspirin Low Dose] 81 mg Tablet,Delayed Release (Dr/Ec) 81 mg PO DAILY RF: 0 nitroglycerin [Nitrostat] 0.4 mg Tablet, Sublingual 0.4 mg Sublingual DIRECTED PRN (Reason: Chest Pain) RF: 0 topiramate 50 mg Tablet 50 mg PO BID RF: 0 ipratropium-albuterol [Combivent Respimat] 20-100 mcg/actuation Mist 1 puff Inhalation QID Qty: 1 RF: 0 Discontinued lisinopril 10 mg Tablet 10 mg PO DAILY RF: 0 Visit Report Forms: My [facility] [facility] Stand-Alone Forms: My [facility], Work/School Release (Inpt) Discharge Orders: Discharge Order (Routine); Ordered 06/20/18 Ordered By: Mango Naranjo Admission Data Admit Date/Time: 06/17/18 06:35 Attending Provider: Mango Naranjo Admit Provider: Selvin Cates Primary Care Provider: Hany Berrios Other Providers: Selvin Cates ; Ramy Silva Service: Medical Other Interventions: Discharge Summary Assessment (RN) Last Done: 06/20/18 09:30 DC Date/Time DO NOT enter until pt leaves facility: 06/20/18 09:46
== END 2018-06-20 09:46 | disposition home or self-care (01) | DRG 202 ==
LOC: ED 01:59 → SUATTDRO 06:35 → 4E 06:35

== ENCOUNTER 2018-12-01 07:23 | Observation (INO) ==
--- OUTSIDE RECORDS SUMMARY | 2018-12-01 07:26 | External Medical Summary | Continuity of Care Document ---
:1960 Author Name True Heaton, Provider Address Unavailable Unavailable , Care Team Providers Name Role Phone Alana Cesar PA-C Unavailable [email or web address], [email or web address] Unavailable Unavailable Unavailable Unavailable Unavailable Problems Chronic stable angina (413.9) (I20.8) CAD (coronary artery disease) (414.00) (I25.10) Presence of drug-eluting stent in right coronary artery (V45 .82) (Z95.5) Essential hypertension (401.9) (I10) Chronic cough (786.2) (R05) Morbid obesity with BMI of 50.0-59.9, adult (278.01) (E66.01 ) Pre-diabetes (790.29) (R73.03) Allergies and Adverse Reactions No Known Drug Allergies (Allergy) Latex (Allergy) Medications Nitroglycerin 0.4 MG Sublingual Tablet Sublingual Refills: 0 Topiramate 50 MG Oral Tablet; TAKE 1 TABLET BY MOUTH TWICE D AILY Refills: 0 Furosemide 40 MG Oral Tablet; take 1 tablet by mouth once da dave Refills: 0 Atorvastatin Calcium 40 MG Oral Tablet; take 1 tablet by aníbal th once daily 90 Tablet Bottle Refills: 0 Metoprolol Succinate ER 50 MG Oral Table t Extended Release 24 Hour; TAKE 1 TABLET BY MOUTH TWICE DAILY 100 Tablet Bottle Refills: 0 Clopidogrel Bisulfate 75 MG Oral Tablet; take 1 tablet by mo uth once daily 30 Tablet Bottle Refills: 0 Aspirin 81 MG Oral Tablet Delayed Release; Take 1 tablet hortencia ly Refills: 0 Isosorbide Mononitrate ER 30 MG Oral Tab let Extended Release 24 Hour; Take 1 tablet by mouth daily GREG Cesar Start: 07-Sep-2018 Quantity: 30 Refills: 5 Procedures History of coronary artery stent placement Status: Completed Immunizations Immunizations not documented Family History Unknown Family Member Family history of cerebrovascular accident Status: Active Comments: Family History (CVA) (V17.1) (Z82.3) Family history of aortic aneurysm (V17.49) Status: Active Comments: Family History (Z82.49) Family history of diabetes mellitus (V18.0) Status: Active Comments: Family History (Z83.3) Social History - Smoking Status Former smoker Plan of Treatment Planned Encounters Appointment; Fady Fatima M.D. Start: 02-Dec-2018 9:0 0 Request Planned Observations Planned Goals not documented Results No Known Results Results not documented Encounters Appointment; Alana Cesar PA-C 07-Sep-2018 13:30 Encounter Diagnosis: Problem not documented Appointment; Cha Jon PA-C 09-Jun-2018 13:30 Encounter Diagnosis: Problem not documented Appointment; Cha Jon PA-C 10-May-2018 8:30 Encounter Diagnosis: Problem not documented Appointment; Fady Fatima M.D. 02-Dec-2018 9:00 Encounter Diagnosis: Problem not documented
[2018-12-01] MEDS ORDERED: NITROGLYCERIN SL 0.4 MG/TAB TAB ONE (07:32)
[2018-12-01] MEDS ORDERED: ASPIRIN CHEW 324 MG PO STA (07:35)
[2018-12-01] MEDS ORDERED: ALBUT/IPRATROP 3MG/0.5MG NEB 3 ML VIAL NEB STA (07:35)
[2018-12-01] MEDS ORDERED: NITROGLYCERIN SL 0.4 MG/TAB TAB SL PRN ×3 (07:35→11:59)
[2018-12-01 07:47] LABS: Basophils # (auto) 0.03 K/uL (0-0.2); Basophils % (auto) 0.5 %; Eosinophils % (auto) 6.9 %; Hematocrit (blood only) 44.2 % (42-52); Hemoglobin 15.2 g/dL (14.0-18.0); Immature Granulocytes # (auto) 0.01 K/uL (0.00-0.02); Immature Granulocytes % (auto) 0.2 %; Lymphocytes # (auto) 1.19 K/uL (1.2-3.4); Lymphocytes % (auto) 20.4 %; Mean Corpuscular Hgb Conc 34.4 g/dL (32-36); Mean Corpuscular Volume 87.4 fL (80-100); Mean Platelet Volume 9.1 fL (7.4-10.4); Monocytes # (auto) 0.45 K/uL (0.11-0.59); Monocytes % (auto) 7.7 %; Neutrophils # (auto) 3.74 K/uL (1.4-6.5); Neutrophils % (auto) 64.3 %; Platelet Count 211 K/uL (130-400); RDW Coefficient of Variation 13.8 % (11.5-14.5); Red Blood Count 5.06 M/uL (4.7-6.1); White Blood Count 5.82 K/uL (4.8-10.8)
--- NOTE | 2018-12-01 07:48 | XRay Report ---
XR chest 1V portable CLINICAL HISTORY: Atypical chest pain COMPARISON STUDY: 07/10/2018 FINDINGS: The cardiac and mediastinal contours remain stable. Slight interstitial prominence may rela te to the patient's body habitus. There is no focal pulmonary consolidation. There are no pleural eff usions. There is no overt failure.[ IMPRESSION: 1. No evidence of focal pulmonary consolidation 2. Slight interstitial prominence, a finding which may relate to technical factors Electronically signed by: Richie Shaw M.D. 12/01/2018 7:47 AM
--- NOTE | 2018-12-01 07:53 | Emergency Department Note ---
Entered by Liana Wayne acting as a scribe for History of Present Illness General Chief complaint: Chest Pain Stated complaint: CHEST PAIN, Time Seen by Provider: 12/01/18 07:28 Source: patient History of Present Illness Onset (ago): hour(s) (1.5) Location: chest Radiation: non-radiation Pain Consistency: + other (Sudden) Current Pain Intensity: 3 Quality: + other (Pressure) Exacerbated By: not by movement Associated symptoms: + chest pain, + cough, + diaphoresis, + headaches and + shortness of breath; no nausea/vomiting The patient is a 58 year old male presenting to the Emergency Department complaining of sudden chest pain starting 1.5 hours ago. The patient reports he was driving to work and began experiencing chest pain. He states that his chest pain is in the center of his chest and is non-radiating. He explains that his chest feels tight. He rates this chest pain 3/10. He notes that upon the onset of his chest pain he was short of breath and maybe slightly diaphoretic. He adds that he had a headache that he describes as a sharp pain but the headache has since resolved. He has noted a recent cough. The patient reports that he sees Dr. Fatima flask cleaner and has an appointment with him tomorrow. He explains that he had a heart attack in 2016 and has a stent from it. He adds that he regularly takes Baby Aspirin and Plavix. The patient denies nausea, vomiting, worsening pain on exertion and smoking tobacco. Home Medications Home Medications Medication Instructions Recorded Confirmed Type aspirin [Aspirin Low Dose] 81 mg PO QAM 04/26/18 12/01/18 History atorvastatin 40 mg PO HS 04/26/18 12/01/18 History clopidogrel [Plavix] 75 mg PO QAM 04/26/18 12/01/18 History furosemide [Lasix] 40 mg PO QAM 04/26/18 12/01/18 History metoprolol succinate 50 mg PO BID 04/26/18 12/01/18 History nitroglycerin [Nitrostat] 0.4 mg SUBLINGUAL DIRECTED PRN 04/26/18 12/01/18 History topiramate [Topamax] 50 mg PO BID 04/26/18 12/01/18 History isosorbide mononitrate 30 mg PO QAM 12/01/18 12/01/18 History losartan 50 mg PO QAM 12/01/18 12/01/18 History Allergies Allergy/AdvReac Type Severity Reaction Status Date / Time latex Allergy Mild RASH Unverified 12/01/18 08:16 Past Med/Surg History Medical History Chronic cough Pre-diabetes Nonsustained ventricular tachycardia Essential hypertension Morbid obesity with BMI of 50.0-59.9, adult Acute bronchitis (Acute) CAD (coronary artery disease) Heart attack Hyperlipidemia Hypertension Obesity Surgical History H/O heart artery stent Family History Unknown Stroke Aortic aneurysm Diabetes Social History Preferred Language: Samoan Communication Ability: Effective Beliefs That Will Affect Care: None marital status: Current Living Situation: Spouse Other Information That Helps Us Care for You: No Feels Safe at Home: Yes Safety Concerns: Feels Safe At This Time Smoking Status: Former smoker Second Hand Exposure: No Hx Alcohol Use: No Hx Substance Use: No Review of Systems See HPI for pertinent positives & negatives. and A total of 10 systems reviewed and were otherwise negative Physical Exam Vital Signs Vital Signs - 24 hr 12/01/18 07:25 12/01/18 07:31 12/01/18 07:38 Temperature 36.5 C Temperature Source Oral Sepsis Recent Fever Within 48 Hours No Sepsis New/Unexplained Change in Mental Status No Sepsis Action Taken by Nursing No Action Required Pulse Rate 88 87 94 H Pulse Rate [Apical] 88 Pulse Rate from SpO2 Sensor 87 87 Pulse Rhythm Regular Pulse Rhythm [Apical] Regular Pulse Strength Normal Pulse Strength [Apical] Normal Respiratory Rate 20 20 13 Respiratory Effort / Characteristics Spontaneous SOB on Exertion Respiratory Depth Normal Respiratory Pattern Regular Blood Pressure 164/101 H 164/101 H Blood Pressure [Left Arm] 164/101 H Blood Pressure Mean 122 122 Blood Pressure Mean [Left Arm] 122 Blood Pressure Position Lying Blood Pressure Position [Left Arm] Lying Pulse Oximetry 95 94 94 Oxygen Delivery Method Room Air 12/01/18 07:41 12/01/18 07:42 12/01/18 07:46 Temperature Temperature Source Sepsis Recent Fever Within 48 Hours Sepsis New/Unexplained Change in Mental Status Sepsis Action Taken by Nursing Pulse Rate 81 77 75 Pulse Rate [Apical] 78 Pulse Rate from SpO2 Sensor 82 77 75 Pulse Rhythm Pulse Rhythm [Apical] Regular Pulse Strength Pulse Strength [Apical] Normal Respiratory Rate 23 18 13 Respiratory Effort / Characteristics Spontaneous SOB on Exertion Respiratory Depth Normal Respiratory Pattern Regular Blood Pressure 126/83 Blood Pressure [Left Arm] 126/83 Blood Pressure Mean 97 Blood Pressure Mean [Left Arm] 97 Blood Pressure Position Blood Pressure Position [Left Arm] Lying Pulse Oximetry 94 95 94 Oxygen Delivery Method Room Air 12/01/18 07:47 12/01/18 07:48 12/01/18 08:00 Temperature Temperature Source Sepsis Recent Fever Within 48 Hours Sepsis New/Unexplained Change in Mental Status Sepsis Action Taken by Nursing Pulse Rate 87 Pulse Rate [Apical] 83 79 Pulse Rate from SpO2 Sensor 87 Pulse Rhythm Pulse Rhythm [Apical] Regular Pulse Strength Pulse Strength [Apical] Normal Respiratory Rate 18 20 20 Respiratory Effort / Characteristics Spontaneous SOB on Exertion Respiratory Depth Normal Respiratory Pattern Regular Blood Pressure 114/71 Blood Pressure [Left Arm] 114/71 Blood Pressure Mean 85 Blood Pressure Mean [Left Arm] 85 Blood Pressure Position Blood Pressure Position [Left Arm] Lying Pulse Oximetry 93 94 94 Oxygen Delivery Method Room Air Room Air 12/01/18 08:01 12/01/18 08:16 12/01/18 08:31 Temperature Temperature Source Sepsis Recent Fever Within 48 Hours Sepsis New/Unexplained Change in Mental Status Sepsis Action Taken by Nursing Pulse Rate 74 79 70 Pulse Rate [Apical] 74 70 Pulse Rate from SpO2 Sensor 72 78 69 Pulse Rhythm Pulse Rhythm [Apical] Regular Regular Pulse Strength Pulse Strength [Apical] Normal Normal Respiratory Rate 20 24 16 Respiratory Effort / Characteristics Spontaneous SOB on Exertion Spontaneous SOB on Exertion Respiratory Depth Normal Normal Respiratory Pattern Regular Regular Blood Pressure 134/68 132/82 Blood Pressure [Left Arm] 134/68 132/82 Blood Pressure Mean 90 98 Blood Pressure Mean [Left Arm] 90 98 Blood Pressure Position Blood Pressure Position [Left Arm] Lying Lying Pulse Oximetry 95 91 95 Oxygen Delivery Method Room Air Room Air 12/01/18 08:46 12/01/18 09:01 12/01/18 09:16 Temperature Temperature Source Sepsis Recent Fever Within 48 Hours Sepsis New/Unexplained Change in Mental Status Sepsis Action Taken by Nursing Pulse Rate 79 87 80 Pulse Rate [Apical] 87 Pulse Rate from SpO2 Sensor 69 84 79 Pulse Rhythm Pulse Rhythm [Apical] Regular Pulse Strength Pulse Strength [Apical] Normal Respiratory Rate 19 16 19 Respiratory Effort / Characteristics Spontaneous SOB on Exertion Respiratory Depth Normal Respiratory Pattern Regular Blood Pressure 132/66 Blood Pressure [Left Arm] 132/66 Blood Pressure Mean 88 Blood Pressure Mean [Left Arm] 88 Blood Pressure Position Blood Pressure Position [Left Arm] Lying Pulse Oximetry 97 95 94 Oxygen Delivery Method Room Air 12/01/18 09:25 12/01/18 09:31 12/01/18 09:46 Temperature Temperature Source Sepsis Recent Fever Within 48 Hours Sepsis New/Unexplained Change in Mental Status Sepsis Action Taken by Nursing Pulse Rate 67 67 63 Pulse Rate [Apical] 67 Pulse Rate from SpO2 Sensor 68 66 65 Pulse Rhythm Pulse Rhythm [Apical] Regular Pulse Strength Pulse Strength [Apical] Normal Respiratory Rate 22 19 20 Respiratory Effort / Characteristics Spontaneous SOB on Exertion Respiratory Depth Normal Respiratory Pattern Regular Blood Pressure 120/67 128/67 Blood Pressure [Left Arm] 128/67 Blood Pressure Mean 84 87 Blood Pressure Mean [Left Arm] 87 Blood Pressure Position Blood Pressure Position [Left Arm] Lying Pulse Oximetry 96 94 96 Oxygen Delivery Method Room Air 12/01/18 10:01 12/01/18 10:15 12/01/18 10:21 Temperature Temperature Source Sepsis Recent Fever Within 48 Hours Sepsis New/Unexplained Change in Mental Status Sepsis Action Taken by Nursing Pulse Rate 60 59 L Pulse Rate [Apical] Pulse Rate from SpO2 Sensor 59 L 58 L Pulse Rhythm Pulse Rhythm [Apical] Pulse Strength Pulse Strength [Apical] Respiratory Rate 15 21 Respiratory Effort / Characteristics Spontaneous SOB on Exertion Respiratory Depth Normal Respiratory Pattern Regular Blood Pressure 138/70 Blood Pressure [Left Arm] Blood Pressure Mean 92 Blood Pressure Mean [Left Arm] Blood Pressure Position Blood Pressure Position [Left Arm] Pulse Oximetry 96 96 Oxygen Delivery Method Room Air 12/01/18 10:30 12/01/18 10:31 12/01/18 10:33 Temperature Temperature Source Sepsis Recent Fever Within 48 Hours Sepsis New/Unexplained Change in Mental Status Sepsis Action Taken by Nursing Pulse Rate 64 61 85 Pulse Rate [Apical] Pulse Rate from SpO2 Sensor 64 62 64 Pulse Rhythm Pulse Rhythm [Apical] Pulse Strength Pulse Strength [Apical] Respiratory Rate 16 21 14 Respiratory Effort / Characteristics Respiratory Depth Respiratory Pattern Blood Pressure 138/69 Blood Pressure [Left Arm] Blood Pressure Mean 92 Blood Pressure Mean [Left Arm] Blood Pressure Position Blood Pressure Position [Left Arm] Pulse Oximetry 97 96 95 Oxygen Delivery Method 12/01/18 10:36 12/01/18 11:00 12/01/18 11:01 Temperature Temperature Source Sepsis Recent Fever Within 48 Hours Sepsis New/Unexplained Change in Mental Status Sepsis Action Taken by Nursing Pulse Rate 58 L 61 Pulse Rate [Apical] 61 Pulse Rate from SpO2 Sensor 58 L 62 Pulse Rhythm Pulse Rhythm [Apical] Regular Pulse Strength Pulse Strength [Apical] Normal Respiratory Rate 21 19 23 Respiratory Effort / Characteristics Spontaneous SOB on Exertion Respiratory Depth Normal Respiratory Pattern Regular Blood Pressure 127/66 Blood Pressure [Left Arm] 138/69 Blood Pressure Mean 86 Blood Pressure Mean [Left Arm] 92 Blood Pressure Position Blood Pressure Position [Left Arm] Lying Pulse Oximetry 96 97 95 Oxygen Delivery Method Room Air GENERAL: Patient is in no acute distress. HEENT: No acute trauma, normocephalic atraumatic, mucous membranes moist, no nasal congestion, no scleral icterus. NECK: No stridor, no adenopathy, no meningismus, trachea is midline. LUNGS: Scattered wheezes bilaterally. Diminished breath sounds bilaterally. No rhonchi. No respiratory distress. HEART: Without murmurs gallops or rubs, regular rate and rhythm. CHEST: Tender to mid low chest over the area of the xiphoid process. ABDOMEN: Soft, nontender, bowel sounds positive, no hernias, no peritonitis. EXTREMITIES: No cyanosis, full range of motion of all the joints without pain or difficulty, no signs for acute trauma. Moderate bilateral pedal edema with chronic skin changes. NEUROLOGIC: Oriented x 3, no acute motor or sensory deficits, no focal weakness. SKIN: No rash, no jaundice, no diaphoresis. Course 0730: The patient was evaluated in room B11B, and a complete history and physical examination were performed. 0958: I reevaluated the patient at this time. 1014: I discussed the patients case with Dr. Zehra BELCHER hospitalist. He will evaluate the patient for further management. Consultations Consultation #1: I discussed the patients case with Dr. Zehra BELCHER hospitalist . He will evaluate the patient for further management. Time: 10:14 Administered Medications Enoxaparin Sodium (Lovenox) 40 mg SQ Q24H ANDIE Stop: 12/31/18 12:59 Last Admin: 12/01/18 13:40 Dose: 40 mg Documented by: [id number] Discontinued Medications Albuterol (Duoneb) 3 ml NEB NOW STA Stop: 12/01/18 07:36 Last Admin: 12/01/18 08:00 Dose: 3 ml Documented by: [id number] Aspirin (Aspirin) 324 mg PO NOW STA Stop: 12/01/18 07:36 Last Admin: 12/01/18 07:51 Dose: 324 mg Documented by: [id number] Nitroglycerin (Nitrostat) Confirm Administered Dose 0.4 mg .ROUTE .STK-MED ONE Stop: 12/01/18 07:33 Last Admin: 12/01/18 07:33 Dose: 0.4 mg Documented by: [id number] Nitroglycerin (Nitrostat) 0.4 mg SL UD PRN PRN Reason: Chest Pain Stop: 12/31/18 07:34 Last Admin: 12/01/18 07:45 Dose: 0.4 mg Documented by: [id number] Nitroglycerin (Nitro-Bid 2%) 1 inch EXT NOW STA Stop: 12/01/18 10:03 Last Admin: 12/01/18 10:41 Dose: 1 inch Documented by: [id number] Medical Decision Making Differential Diagnosis Differentials include PA, angina, bronchitis, pneumonia, CHF, musculoskeletal pain, PE and aortic dissection among others. Medical Records Attestation: I reviewed the patient's medical records. Home Medications Current Medication List: was personally reviewed by me Laboratory Data Attestation: I reviewed the patient's lab results. Result diagrams: 12/01/18 07:35 12/01/18 07:35 Lab Results 12/01/18 12/01/18 12/01/18 Range/Units 07:35 07:35 07:35 WBC 5.82 (4.8-10.8) K/uL RBC 5.06 (4.7-6.1) M/uL Hgb 15.2 (14.0-18.0) g/dL Hct 44.2 (42-52) % MCV 87.4 (80-100) fL MCH 30.0 (25-34) pg MCHC 34.4 (32-36) g/dL RDW Std Deviation 44.0 (36.4-46.3) fL RDW Coeff of [place] 13.8 (11.5-14.5) % Plt Count 211 (130-400) K/uL MPV 9.1 (7.4-10.4) fL Immature Gran % (Auto) 0.2 % Neut % (Auto) 64.3 % Lymph % (Auto) 20.4 % [place] % (Auto) 7.7 % Eos % (Auto) 6.9 % Baso % (Auto) 0.5 % Immature Gran # (Auto) 0.01 (0.00-0.02) K/uL Neut # (Auto) 3.74 (1.4-6.5) K/uL Lymph # (Auto) 1.19 L (1.2-3.4) K/uL [place] # (Auto) 0.45 (0.11-0.59) K/uL Eos # (Auto) 0.40 (0-0.5) K/uL Baso # (Auto) 0.03 (0-0.2) K/uL PT 10.0 (9.0-12.0) Seconds INR 1.0 (0.9-1.1) APTT 25.3 (21.0-31.0) Seconds PTT Ratio 0.9 Sodium 143 (136-145) mmol/L Potassium 4.0 (3.5-5.1) mmol/L Chloride 112 H (98-107) mmol/L Carbon Dioxide 25 (21-32) mmol/L Anion Gap 7.0 (3-11) BUN 10 (7-18) mg/dl Creatinine 0.98 (0.6-1.4) mg/dl Est Cr Clr Drug Dosing 134.6 ml/min Est GFR ( Amer) 97.4 Est GFR (Non-Af Amer) 84.1 BUN/Creatinine Ratio 10.2 (10-20) Glucose 116 H (70-99) mg/dl Calcium 9.0 (8.5-10.1) mg/dl Magnesium 1.9 (1.8-2.4) mg/dl Total Bilirubin 0.5 (0.2-1) mg/dl AST 17 (15-37) U/L ALT 30 (12-78) U/L Alkaline Phosphatase 89 (45-117) U/L POC Troponin I (0-0.045) ng/ml Troponin I < 0.015 (0-0.045) ng/ml Total Protein 6.4 (6.4-8.2) gm/dl Albumin 3.4 (3.4-5.0) gm/dl Globulin 3.0 (2.5-4.0) gm/dl Albumin/Globulin Ratio 1.1 (0.9-2) Lipase 142 (73-393) U/L 12/01/18 Range/Units 07:39 WBC (4.8-10.8) K/uL RBC (4.7-6.1) M/uL Hgb (14.0-18.0) g/dL Hct (42-52) % MCV (80-100) fL MCH (25-34) pg MCHC (32-36) g/dL RDW Std Deviation (36.4-46.3) fL RDW Coeff of [place] (11.5-14.5) % Plt Count (130-400) K/uL MPV (7.4-10.4) fL Immature Gran % (Auto) % Neut % (Auto) % Lymph % (Auto) % [place] % (Auto) % Eos % (Auto) % Baso % (Auto) % Immature Gran # (Auto) (0.00-0.02) K/uL Neut # (Auto) (1.4-6.5) K/uL Lymph # (Auto) (1.2-3.4) K/uL [place] # (Auto) (0.11-0.59) K/uL Eos # (Auto) (0-0.5) K/uL Baso # (Auto) (0-0.2) K/uL PT (9.0-12.0) Seconds INR (0.9-1.1) APTT (21.0-31.0) Seconds PTT Ratio Sodium (136-145) mmol/L Potassium (3.5-5.1) mmol/L Chloride (98-107) mmol/L Carbon Dioxide (21-32) mmol/L Anion Gap (3-11) BUN (7-18) mg/dl Creatinine (0.6-1.4) mg/dl Est Cr Clr Drug Dosing ml/min Est GFR ( Amer) Est GFR (Non-Af Amer) BUN/Creatinine Ratio (10-20) Glucose (70-99) mg/dl Calcium (8.5-10.1) mg/dl Magnesium (1.8-2.4) mg/dl Total Bilirubin (0.2-1) mg/dl AST (15-37) U/L ALT (12-78) U/L Alkaline Phosphatase (45-117) U/L POC Troponin I < 0.03 (0-0.045) ng/ml Troponin I (0-0.045) ng/ml Total Protein (6.4-8.2) gm/dl Albumin (3.4-5.0) gm/dl Globulin (2.5-4.0) gm/dl Albumin/Globulin Ratio (0.9-2) Lipase (73-393) U/L Imaging Data Radiologist's Impression: Radiology results as stated below per my review and the radiologist's interpretation: XR chest 1V portable CLINICAL HISTORY: Atypical chest pain COMPARISON STUDY: 07/10/2018 FINDINGS: The cardiac and mediastinal contours remain stable. Slight interstitial prominence may relate to the patient's body habitus. There is no focal pulmonary consolidation. There are no pleural effusions. There is no overt failure.[ IMPRESSION: 1. No evidence of focal pulmonary consolidation 2. Slight interstitial prominence, a finding which may relate to technical factors Electronically signed by: Richie Shaw M.D. 12/01/2018 7:47 AM ECG Data Attestation: I personally reviewed and interpreted this ECG as follows: Indication: chest pain Rate (beats per minute): 78 Rhythm: normal sinus Findings: no PVC and no ST elevation Blood Pressure Blood Pressure Findings: Normal blood pressure Blood Pressure Disposition: further management by hospitalist [facility] Narrative There is no leukocytosis or concerning anemia. No coagulopathy. No significant electrolyte abnormality or kidney failure. No elevation to the LFTs. No evide nce for pancreatitis. EKG shows a sinus rhythm, no acute ischemia. Cardiac enzyme testing x1 is not consistent with acute cardiac injury. Chest film does not show mediastinal widening, pneumonia or pneumothorax. The patient presents with chest discomfort, he does have a coronary history. He received 2 sublingual nitroglycerin and 4 baby aspirin. He is now pain-free. Patient deserves a hospital stay. He has a known coronary history and presents with chest pain which was relieved with nitroglycerin. I will note that there is some discomfort to palpate across the anterior chest wall. Case management has been involved. The patient is aware of all his findings, the on-call hospitalist was consulted. Impression & Plan Precordial chest pain, History of PA (myocardial infarction) Discharge Plan Visit Data *Final* Discharge Date/Time: 12/01/18 11:31 Chief Complaint: Chest Pain Stated Complaint: CHEST PAIN, ED Provider: Mert Gillespie Discharge Problem: Precordial chest pain, History of PA (myocardial infarction) Patient Disposition: Admitted As Inpatient Discharge Instructions Interventions: ED Discharge Assessment Last Done: 12/01/18 11:31 The scribe's documentation has been prepared under my direction and personally reviewed by me in its entirety. I confirm that the note above accurately reflects all work, treatment, procedures, and medical decision making performed by me.
[2018-12-01 07:57] LABS: Partial Thromboplastin Ratio 0.9; Partial Thromboplastin Time 25.3 Seconds (21.0-31.0)
[2018-12-01 08:21] LABS: Alanine Aminotransferase 30 U/L (12-78); Albumin Level 3.4 gm/dl (3.4-5.0); Aspartate Aminotransferase 17 U/L (15-37); BUN Creatinine Ratio 10.2 (10-20); Blood Urea Nitrogen 10 mg/dl (7-18); Carbon Dioxide 25 mmol/L (21-32); Chloride 112 mmol/L (98-107); Creatinine Clr Calc Pharmacy 134.6 ml/min; Est GFR (African American) 97.4; Est GFR (Non-African American) 84.1; Glucose 116 mg/dl (70-99); Magnesium 1.9 mg/dl (1.8-2.4); Sodium 143 mmol/L (136-145)
[2018-12-01 08:26] LABS: Albumin Globulin Ratio 1.1 (0.9-2); Alkaline Phosphatase 89 U/L (45-117); Bilirubin,Total 0.5 mg/dl (0.2-1); Total Protein 6.4 gm/dl (6.4-8.2); Troponin I < 0.015 ng/ml (0-0.045)
[2018-12-01] MEDS ORDERED: NITROGLYCERIN 2% OINTMENT 30GM TUBE EXT STA (10:02)
--- NOTE | 2018-12-01 11:08 | History & Physical Report ---
Date of Service December 01, 2018 Assessment & Plan (1) Precordial chest pain: Palpable component but also similar to previous ischemic heart symptoms back in December 2015. Observation with telemetry. Continue medication including aspirin, Plavix, metoprolol, isosorbide mononitrate, statin therapy. Serial troponins and EKGs. Cardiac echo. Consult cardiology Present on Admission?: Yes (2) History of MS (myocardial infarction): History of right coronary artery PTCA with stent in December 2015. Continue current medical management Present on Admission?: Yes (3) Essential hypertension: Treated with losartan and metoprolol (4) DVT prophylaxis: Lovenox subcu History of Present Illness Chief Complaint: Chest pain at rest Primary Care Provider: Hany Berrios 58-year-old male with a previous PTCA and stent of the right coronary artery in December 2015. While he was driving this morning he had recurrent chest discomfort that persisted for several hours. He did not take any sublingual nitroglycerin. He was given 2 sublingual nitroglycerin in the ED along with aspirin and his symptoms were relieved. EKG reveals no acute changes. He does have a palpable component to the chest discomfort which may represent costochondritis. However he states his symptoms were similar to previous symptoms in December 2015. For this reason, he will be kept in observation for further assessment. Cardiac echo and cardiology consultation will be requested. Allergies Allergy/AdvReac Type Severity Reaction Status Date / Time latex Allergy Mild RASH Unverified 12/01/18 08:16 Home Medications Home Medications Medication Instructions Recorded Confirmed Type aspirin [Aspirin Low Dose] 81 mg PO QAM 04/26/18 12/01/18 History atorvastatin 40 mg PO HS 04/26/18 12/01/18 History clopidogrel [Plavix] 75 mg PO QAM 04/26/18 12/01/18 History furosemide [Lasix] 40 mg PO QAM 04/26/18 12/01/18 History metoprolol succinate 50 mg PO BID 04/26/18 12/01/18 History nitroglycerin [Nitrostat] 0.4 mg SUBLINGUAL DIRECTED PRN 04/26/18 12/01/18 History topiramate [Topamax] 50 mg PO BID 04/26/18 12/01/18 History isosorbide mononitrate 30 mg PO QAM 12/01/18 12/01/18 History losartan 50 mg PO QAM 12/01/18 12/01/18 History Past Med/Surg History Medical History Chronic cough Pre-diabetes Nonsustained ventricular tachycardia Essential hypertension Morbid obesity with BMI of 50.0-59.9, adult Acute bronchitis (Acute) CAD (coronary artery disease) Heart attack Hyperlipidemia Hypertension Obesity Surgical History H/O heart artery stent Family History Unknown Stroke Aortic aneurysm Diabetes Social History Preferred Language: Swazi Communication Ability: Effective Beliefs That Will Affect Care: None marital status: Current Living Situation: Spouse Other Information That Helps Us Care for You: No Feels Safe at Home: Yes Safety Concerns: Feels Safe At This Time Smoking Status: Former smoker Second Hand Exposure: No Hx Alcohol Use: No Hx Substance Use: No Review of Systems Review of Systems: Constitutional-no fever or chills ENT-no blurred vision, no double vision, no epistaxis, no sore throat Respiratory-no cough, no wheezing, no shortness of breath Cardiac-no palpitations, no syncope. Chest discomfort as described above GI-no nausea, vomiting, diarrhea, melena, hematochezia -no urinary retention, no urinary incontinence, no dysuria, no hematuria Musculoskeletal-no joint pain, no muscle tenderness Skin-no bruising, no rashes, no pruritus Neuro-no isolated weakness, no paresthesia, no weakness Psych-no depression, no anxiety Physical Exam Physical Exam: General-alert and oriented x3, no fevers, no chills HEENT-head atraumatic and normocephalic, TMs intact bilaterally, pupils equal and reactive to light, extraocular muscles intact Neck-no lymphadenopathy or thyromegaly, trachea midline Chest-clear to auscultation percussion. No rales wheezing or rhonchi. Tender left parasternal area Cardiac-regular rate and rhythm, normal S1 and S2, no murmurs Abdomen-normal bowel sounds, nontender, no hepatosplenomegaly Extremities-no cyanosis, clubbing, or edema. Bilateral chronic venous stasis ch anges Neuro-cranial nerves II through XII intact, motor and sensory function within normal limits, strength symmetrical 5/5, no focal deficits Psych-normal affect, normal mood Results & Data Vital Signs (Past 12 Hours) Vital Signs Temp Pulse Pulse Resp BP BP Pulse Ox 12/01/18 10:36 61 21 138/69 96 12/01/18 10:31 61 21 138/69 96 12/01/18 10:30 64 16 97 12/01/18 10:15 59 L 21 96 12/01/18 10:01 60 15 138/70 96 12/01/18 09:46 63 20 96 12/01/18 09:31 67 67 19 128/67 128/67 94 12/01/18 09:25 67 22 120/67 96 12/01/18 09:16 80 19 94 12/01/18 09:01 87 87 16 132/66 132/66 95 12/01/18 08:46 79 19 97 12/01/18 08:31 70 70 16 132/82 132/82 95 12/01/18 08:16 79 24 91 12/01/18 08:01 74 74 20 134/68 134/68 95 12/01/18 08:00 79 20 94 12/01/18 07:48 83 20 114/71 94 12/01/18 07:47 87 18 114/71 93 12/01/18 07:46 75 78 13 126/83 94 12/01/18 07:42 77 18 95 12/01/18 07:41 81 23 126/83 94 12/01/18 07:38 94 H 13 94 12/01/18 07:31 87 20 164/101 H 94 12/01/18 07:25 36.5 C 88 88 20 164/101 H 164/101 H 95 Laboratory Results 12/01/18 07:35 12/01/18 07:35 PG Care Time/CCT Total # of Minutes Spent Total Time Spent with Patient: Total time spent is greater than 50% in coordination of care (as documented) at patient's floor/unit and/or counseling patient:
[2018-12-01] MEDS ORDERED: ALUMINUM/MAGNESIUM SUSP 30 ML UDC PO PRN (11:59)
[2018-12-01] MEDS ORDERED: ACETAMINOPHEN 325 MG TAB PO PRN (11:59)
[2018-12-01] MEDS ORDERED: ONDANSETRON INJ 2 MG/ML 2 ML VIAL IV PRN (11:59)
[2018-12-01] MEDS ORDERED: ENOXAPARIN INJ 40 MG/0.4 ML SYR SQ SCH (13:00)
--- NOTE | 2018-12-01 15:48 | Cardiology Consultation ---
Date of Consultation December 01, 2018 Assessment & Plan (1) Precordial chest pain: The patient describes symptoms similar to ischemic chest pain which she has had previously. This occurred at rest. He was fairly mild in nature. It was relieved with nitroglycerin. However, there were no objective findings of ischemia. The EKG obtained on admission did not demonstrate any acute findings. So far, biomarkers have been normal. He did have an extended episode of discomfort and in the absence of significant biomarker elevation, I think this can be discounted is noncardiac. He is not currently having symptoms of ischemia. I think he can be continued on his outpatient regimen which includes aspirin, high-dose atorvastatin, Plavix, metoprolol and isosorbide mononitrate. I think we can trend is markers over the course of the evening and in the absence of any significant elevation consider intensification of his antianginal regimen. If he has elevations in his biomarkers we could consider repeat angiography, however, a few months ago he did not have any significant changes on cat heterization or significant lesions which would require intervention. I think the likelihood that this episode represented unstable angina is low. (2) Nonsustained ventricular tachycardia: This was present during his last admission on telemetry. There was unclear correlation between his symptoms and nonsustained VT. He has not had any recurrent episodes of dizziness, lightheadedness or any episodes of syncope. I think we can monitor him overnight on telemetry. (3) CAD (coronary artery disease): History of percutaneous intervention to the right coronary artery. He has some very mild branch vessel disease. He responded well to addition of isosorbide mononitrate to his medical regimen. He is not having symptoms of angina with exertion including exercise such as mowing his lawn. He will continue on dual anti-platelet therapy. He is on high-dose atorvastatin and beta blockade. (4) Mild aortic regurgitation: History of Present Illness Reason for Consultation: Chest pain Requesting Physician: Zehra Attending Physician: Hitesh Shahid MD History of Present Illness The patient is a 58-year-old gentle with a history of coronary artery disease having previously undergone percutaneous intervention involving the right coronary artery in 2016. Patient has had symptoms of chest discomfort intermittently over the years. He has also had history of nonsustained ventricular tachycardia and some dizziness. This morning the patient was driving to work. He has approximately 50 minute commute to his place of employment. He stated that about [employer] through his trip he began to experience symptoms of substernal chest discomfort. He felt that the symptoms are similar to those he experienced prior to his intervention in 2016. The did not appear to be associated with significant breathing difficulty. There was no radiation to the arm, jaw or back. He did not have any associated dizziness or sense of palpitation. This symptom was fairly mild in nature. The symptoms persisted until he reached work. He thought he would take his medications early and took his usual pills which did include isosorbide mononitrate. Due to the persistent nature of the symptoms a co-worker recommended he proceed to emergency room and he was driven by private vehicle to [facility] Emergency Room. There he was administered nitroglycerin sublingually with some relief of his symptoms. He states that at this point he does not have symptoms of chest pain. However, he does have some discomfort that he attributes to just having undergone an echocardiogram. In general he is an active individual. In fact, he reports having mowed his lawn several times over the course of the summer. He states that he has an element of dyspnea with exertion on occasion but he has not had symptoms of exertional chest discomfort. He denies any symptoms of dizziness or lightheadedness. He has not noticed any palpitations. He denies orthopnea or paroxysmal nocturnal dyspnea. He has been tested for sleep apnea on more than 1 occasion but has not yet been diagnosed with sleep apnea. He has not had syncope. Allergies Allergy/AdvReac Type Severity Reaction Status Date / Time latex Allergy Mild RASH Unverified 12/01/18 08:16 Home Medications Home Medications Medication Instructions Recorded Confirmed Type aspirin [Aspirin Low Dose] 81 mg PO QAM 04/26/18 12/01/18 History atorvastatin 40 mg PO HS 04/26/18 12/01/18 History clopidogrel [Plavix] 75 mg PO QAM 04/26/18 12/01/18 History furosemide [Lasix] 40 mg PO QAM 04/26/18 12/01/18 History metoprolol succinate 50 mg PO BID 04/26/18 12/01/18 History nitroglycerin [Nitrostat] 0.4 mg SUBLINGUAL DIRECTED PRN 04/26/18 12/01/18 History topiramate [Topamax] 50 mg PO BID 04/26/18 12/01/18 History isosorbide mononitrate 30 mg PO QAM 12/01/18 12/01/18 History losartan 50 mg PO QAM 12/01/18 12/01/18 History Patient History Medical History Chronic cough Pre-diabetes Nonsustained ventricular tachycardia Essential hypertension Morbid obesity with BMI of 50.0-59.9, adult Acute bronchitis (Acute) CAD (coronary artery disease) Heart attack Hyperlipidemia Hypertension Obesity Surgical History H/O heart artery stent Family History Unknown Stroke Aortic aneurysm Diabetes Social History Preferred Language: Icelandic Communication Ability: Effective Beliefs That Will Affect Care: None marital status: Current Living Situation: Spouse Other Information That Helps Us Care for You: No Feels Safe at Home: Yes Safety Concerns: Feels Safe At This Time Smoking Status: Former smoker Second Hand Exposure: No Hx Alcohol Use: No Hx Substance Use: No Review of Systems Review of Systems: All systems reviewed & are unremarkable except as noted in HPI & below Persistent lower extremity edema. This is chronic. No recent constitutional symptoms such as fevers or chills. He has rare gastrointestinal discomfort that he describes as indigestion. This appears to have been improved by switching to a new stomach pill on . Physical Exam Physical Exam: The patient is alert and oriented. Mood and affect appeared normal. He answered all questions appropriately. HEENT: Pupils are equal and reactive to light and accommodation. Extraocular movements are intact. The sclerae are anicteric. Neuro: Cranial nerves intact Neck: Patient's neck is supple. He has palpable carotid pulses bilaterally without bruits on auscultation. There is no evidence of jugular venous distention. The thyroid is not enlarged. Lungs: Clear to auscultation bilaterally. He has good air movement without use of accessory muscles. No rales wheezes or rhonchi. Cardiac: Heart demonstrates a regular rate and rhythm. Normal S1 and S2. No murmurs on examination. Pulses: The patient has palpable radial pulses bilaterally that are equal in intensity Extremities: There was no evidence of hypoperfusion. There is no cyanosis or clubbing. He has severe lower extremity edema bilaterally. Skin: I did not appreciate any rashes on examination today. Results & Data Vital Signs (Past 12 Hours) Vital Signs Temp Pulse Pulse Pulse Resp BP BP 12/01/18 15:10 36.9 C 63 19 147/69 H 12/01/18 11:59 36.4 C L 61 63 18 138/66 12/01/18 11:01 61 23 127/66 12/01/18 11:00 58 L 19 12/01/18 10:36 61 21 138/69 12/01/18 10:33 85 14 12/01/18 10:31 61 21 138/69 12/01/18 10:30 64 16 12/01/18 10:15 59 L 21 12/01/18 10:01 60 15 138/70 12/01/18 09:46 63 20 12/01/18 09:31 67 67 19 128/67 128/67 12/01/18 09:25 67 22 120/67 12/01/18 09:16 80 19 12/01/18 09:01 87 87 16 132/66 132/66 12/01/18 08:46 79 19 12/01/18 08:31 70 70 16 132/82 132/82 12/01/18 08:16 79 24 12/01/18 08:01 74 74 20 134/68 134/68 12/01/18 08:00 79 20 12/01/18 07:48 83 20 114/71 12/01/18 07:47 87 18 114/71 12/01/18 07:46 75 78 13 126/83 12/01/18 07:42 77 18 12/01/18 07:41 81 23 126/83 12/01/18 07:38 94 H 13 12/01/18 07:31 87 20 164/101 H 12/01/18 07:25 36.5 C 88 88 20 164/101 H 164/101 H Pulse Ox 12/01/18 15:10 97 12/01/18 11:59 92 12/01/18 11:01 95 12/01/18 11:00 97 12/01/18 10:36 96 12/01/18 10:33 95 12/01/18 10:31 96 12/01/18 10:30 97 12/01/18 10:15 96 12/01/18 10:01 96 12/01/18 09:46 96 12/01/18 09:31 94 12/01/18 09:25 96 12/01/18 09:16 94 12/01/18 09:01 95 12/01/18 08:46 97 12/01/18 08:31 95 12/01/18 08:16 91 12/01/18 08:01 95 12/01/18 08:00 94 12/01/18 07:48 94 12/01/18 07:47 93 12/01/18 07:46 94 12/01/18 07:42 95 12/01/18 07:41 94 12/01/18 07:38 94 12/01/18 07:31 94 12/01/18 07:25 95 Laboratory Results Abnormal Lab Results 12/01/18 12/01/18 12/01/18 07:35 07:35 07:35 WBC 5.82 RBC 5.06 Hgb 15.2 Hct 44.2 MCV 87.4 MCH 30.0 MCHC 34.4 RDW Std Deviation 44.0 RDW Coeff of [place] 13.8 Plt Count 211 MPV 9.1 Immature Gran % (Auto) 0.2 Neut % (Auto) 64.3 Lymph % (Auto) 20.4 [place] % (Auto) 7.7 Eos % (Auto) 6.9 Baso % (Auto) 0.5 Immature Gran # (Auto) 0.01 Neut # (Auto) 3.74 Lymph # (Auto) 1.19 L [place] # (Auto) 0.45 Eos # (Auto) 0.40 Baso # (Auto) 0.03 PT 10.0 INR 1.0 APTT 25.3 PTT Ratio 0.9 Sodium 143 Potassium 4.0 Chloride 112 H Carbon Dioxide 25 Anion Gap 7.0 BUN 10 Creatinine 0.98 Est Cr Clr Drug Dosing 134.6 Est GFR ( Amer) 97.4 Est GFR (Non-Af Amer) 84.1 BUN/Creatinine Ratio 10.2 Glucose 116 H Calcium 9.0 Magnesium 1.9 Total Bilirubin 0.5 AST 17 ALT 30 Alkaline Phosphatase 89 POC Troponin I Troponin I < 0.015 Total Protein 6.4 Albumin 3.4 Globulin 3.0 Albumin/Globulin Ratio 1.1 Lipase 142 12/01/18 07:39 WBC RBC Hgb Hct MCV MCH MCHC RDW Std Deviation RDW Coeff of [place] Plt Count MPV Immature Gran % (Auto) Neut % (Auto) Lymph % (Auto) [place] % (Auto) Eos % (Auto) Baso % (Auto) Immature Gran # (Auto) Neut # (Auto) Lymph # (Auto) [place] # (Auto) Eos # (Auto) Baso # (Auto) PT INR APTT PTT Ratio Sodium Potassium Chloride Carbon Dioxide Anion Gap BUN Creatinine Est Cr Clr Drug Dosing Est GFR ( Amer) Est GFR (Non-Af Amer) BUN/Creatinine Ratio Glucose Calcium Magnesium Total Bilirubin AST ALT Alkaline Phosphatase POC Troponin I < 0.03 Troponin I Total Protein Albumin Globulin Albumin/Globulin Ratio Lipase Diagnostic Findings Chest x-ray the time of admission did not reveal any acute cardiopulmonary findings Echocardiogram performed today revealed preserved LV systolic function without regional wall motion abnormalities. Mild aortic regurgitation. ECG Additional Comments: EKG demonstrated normal sinus rhythm with evidence of an old inferior myocardial infarction. No significant ST or T-wave changes (1) CAD (coronary artery disease) Coronary Disease-Associated Artery/Lesion type: [place] artery [place] vs. transplanted heart: [place] heart Associated angina: with other forms of angina Qualified Code(s): I25.118 - Atherosclerotic heart disease of [place] coronary artery with other forms of angina pectoris
[2018-12-01] MEDS: METOPROLOL SUCC 50MG EXT REL TAB PO SCH (19:41)
[2018-12-01] MEDS: TOPIRAMATE 50 MG TAB PO SCH (19:42)
[2018-12-01] MEDS ORDERED: ATORVASTATIN 40 MG TAB PO SCH (21:00)
--- NOTE | 2018-12-02 08:34 | Cardiology Progress Note ---
Date of Service December 02, 2018 Assessment & Plan (1) CAD (coronary artery disease): 2. Chest pain 3. Hypertension 4. Chronic diastolic heart failure 5. Dyslipidemia Patient with episode of chest pain yesterday for approximately 90 minutes. No evidence of ischemia by cardiac enzymes, EKG. Echocardiogram showed preserved LV function with no new regional wall motion of normalities. Suspicion that patient's episode of chest pain represents ACS is low. From a cardiac standpoint okay for discharge to home today Would increase patient's isosorbide mononitrate from 30 to 60 mg daily Continue current beta-andressa continue current losartan. Continue DAPT with aspirin, clopidogrel Continue home atorvastatin. Appears euvolemic on exam, chest x-raycontinue maintenance Lasix. Follow-up with me in 1 month Subjective Patient feeling well this morning. Denies chest pain since receiving SLNTG yesterday. No other complaints this AM. Telemetry reviewed -- no events. Review of Systems Review of Systems: All systems reviewed & are unremarkable except as noted in HPI & below Physical Exam Physical Exam: General: Comfortable, no acute distress HEENT: Sclerae anicteric, mucous membranes moist Lungs: Clear to auscultation bilaterally, no rhonchi or wheezes Cardiac: Regular rate and rhythm, no murmurs. Abdomen: Soft, nontender, nondistended, positive bowel sounds. Extremities: Warm, well perfused, chronic venous stasis changes but no significant edema Skin: No rashes or lesions. Neuro: Nonfocal Psych: Alert orient x3, normal affect and mood Results & Data Vital Signs (Past 12 Hours) Vital Signs Temp Pulse Resp BP Pulse Ox 12/02/18 07:23 36.3 C L 53 L 20 173/80 H 98 12/02/18 03:41 36.5 C 70 21 136/77 97 12/01/18 23:13 36.7 C 65 19 147/81 H 98 (1) CAD (coronary artery disease) Coronary Disease-Associated Artery/Lesion type: [place] artery [place] vs. transplanted heart: [place] heart Associated angina: with other forms of angina Qualified Code(s): I25.118 - Atherosclerotic heart disease of [place] coronary artery with other forms of angina pectoris
[2018-12-02] MEDS ORDERED: LOSARTAN POTASSIUM 50 MG TAB PO SCH (09:00)
[2018-12-02] MEDS ORDERED: ASPIRIN 81 MG ECTAB PO SCH (09:00)
[2018-12-02] MEDS ORDERED: CLOPIDOGREL BISULFATE 75 MG TAB PO SCH (09:00)
[2018-12-02] MEDS ORDERED: FUROSEMIDE 40 MG TAB PO SCH (09:00)
[2018-12-02] MEDS ORDERED: ISOSORBIDE MONO EXTENDED REL 30 MG TABCR PO SCH (09:00)
[2018-12-02] MEDS: TOPIRAMATE 50 MG TAB PO SCH (09:30)
[2018-12-02] MEDS: METOPROLOL SUCC 50MG EXT REL TAB PO SCH (09:31)
--- NOTE | 2018-12-09 20:43 | Discharge Summary ---
Date of Service December 02, 2018 Admission HPI Per Admitting Provider 58-year-old male with a previous PTCA and stent of the right coronary artery in December 2015. While he was driving this morning he had recurrent chest discomfort that persisted for several hours. He did not take any sublingual nitroglycerin. He was given 2 sublingual nitroglycerin in the ED along with aspirin and his symptoms were relieved. EKG reveals no acute changes. He does have a palpable component to the chest discomfort which may represent costochondritis. However he states his symptoms were similar to previous symptoms in December 2015. For this reason, he will be kept in observation for further assessment. Cardiac echo and cardiology consultation will be requested. Principal Diagnosis Precordial chest pain Discharge Exam General-alert and oriented x3, no fevers, no chills HEENT-head atraumatic and normocephalic, TMs intact bilaterally, pupils equal and reactive to light, extraocular muscles intact Neck-no lymphadenopathy or thyromegaly, trachea midline Chest-clear to auscultation percussion. No rales wheezing or rhonchi. Tender left parasternal area Cardiac-regular rate and rhythm, normal S1 and S2, no murmurs Abdomen-normal bowel sounds, nontender, no hepatosplenomegaly Extremities-no cyanosis, clubbing, or edema. Bilateral chronic venous stasis changes Neuro-cranial nerves II through XII intact, motor and sensory function within normal limits, strength symmetrical 5/5, no focal deficits Psych-normal affect, normal mood Discharge Data Allergies Allergy/AdvReac Type Severity Reaction Status Date / Time latex Allergy Mild RASH Unverified 12/01/18 08:16 Consultations 12/01/18 10:16 ED Decision to Admit Stat 12/01/18 11:59 Consult Cardiology Routine Hospital Course (1) Precordial chest pain: Palpable component but also similar to previous ischemic heart symptoms back in December 2015. Observation with telemetry. Continue medication including aspirin, Plavix, metoprolol, isosorbide mononitrate, statin therapy. Serial troponins and EKGs. Cardiac echo. Consult cardiology Appreciate input from cardio: Patient with episode of chest pain yesterday for approximately 90 minutes. No evidence of ischemia by cardiac enzymes, EKG. Echocardiogram showed preserved LV function with no new regional wall motion of normalities. Suspicion that patient's episode of chest pain represents ACS is low. From a cardiac standpoint okay for discharge to home today Would increase patient's isosorbide mononitrate from 30 to 60 mg daily Continue current beta-andressa continue current losartan. Continue DAPT with aspirin, clopidogrel Continue home atorvastatin. Appears euvolemic on exam, chest x-raycontinue maintenance Lasix. (2) History of [place] (myocardial infarction): History of right coronary artery PTCA with stent in December 2015. Continue current medical management (3) Essential hypertension: Treated with losartan and metoprolol (4) DVT prophylaxis: Lovenox subcu Total Time Total Time Spent Total Time Spent (In Minutes): 35 Total Time Includes: Examination of the Patient, Discharge Planning, Medication Reconciliation and Communication With Other Providers Discharge Plan Discharge Items Patient Disposition: Home - Self-Care Reason For Visit: CHEST PAIN Discharge Diagnosis: Chest pain Discharge Goals: Decrease discomfort Activity: Resume your previous activity Non-emergency contact: Primary Care Provider Call non-emergency contact if: you have any medication questions Follow-up/Referrals: Hany Berrios M.D. [Primary Care Provider] - Diet: Regular Addtl Provider Instructions: Followup with PCP in 1-2 weeks. Followup with cardiolgoy in 1 month. Increased isosorbide to 60 mg. Isosorbide directions: Can either take 2 tabs of 30 mg once daily or 1 tab of 60 mg once daily Prescriptions: New isosorbide mononitrate 60 mg tablet extended release 24 hr 60 mg PO DAILY Qty: 30 RF: 0 nitroglycerin 0.4 mg tablet, sublingual 0.4 mg sublingual Q5M PRN (Reason: chest pain) Qty: 6 RF: 0 Continued furosemide [Lasix] 40 mg Tablet 40 mg PO QAM RF: 0 atorvastatin 40 mg Tablet 40 mg PO HS RF: 0 metoprolol succinate 50 mg Tablet Extended Release 24 Hr 50 mg PO BID RF: 0 clopidogrel [Plavix] 75 mg Tablet 75 mg PO QAM RF: 0 aspirin [Aspirin Low Dose] 81 mg Tablet,Delayed Release (Dr/Ec) 81 mg PO QAM RF: 0 topiramate [Topamax] 50 mg Tablet 50 mg PO BID RF: 0 losartan 50 mg tablet 50 mg PO QAM RF: 0 Discontinued isosorbide mononitrate 30 mg tablet extended release 24 hr 30 mg PO QAM RF: 0 Stand-Alone Forms: Call Back Authorization, My [facility] Discharge Orders: Discharge Order (Routine); Ordered 12/02/18 Ordered By: Nils Jones Admission Data Admit Date/Time: 12/01/18 11:06 Attending Provider: Nils Jones Admit Provider: Hitesh Shahid Primary Care Provider: Hany Berrios Other Providers: Hitesh Shahid ; Jose Fatima Service: Telemetry Other Interventions: Discharge Summary Assessment (RN) Last Done: 12/02/18 11:52 DC Date/Time DO NOT enter until pt leaves facility: 12/02/18 13:10
== END 2018-12-02 13:10 | disposition home or self-care (01) ==
LOC: ED 07:23 → 2S 07:23 → SUATTDRO 11:06 → 2S 11:31

== ENCOUNTER 2019-05-28 10:51 | Inpatient (IN) ==
[2019-05-28] MEDS ORDERED: VANCOMYCIN HCL 2,750 MG in SODIUM CHLORIDE 0.9% 500 ML IV ONE (12:00)
[2019-05-28] MEDS ORDERED: VANCOMYCIN CONSULT ACTIVE PRN ×2 (12:00→15:34)
[2019-05-28 12:22] LABS: Basophils # (auto) 0.01 K/uL (0-0.2); Basophils % (auto) 0.2 %; Eosinophils # (auto) 0.08 K/uL (0-0.5); Eosinophils % (auto) 1.9 %; Hematocrit (blood only) 43.6 % (42-52); Hemoglobin 15.1 g/dL (14.0-18.0); Immature Granulocytes # (auto) 0.01 K/uL (0.00-0.02); Immature Granulocytes % (auto) 0.2 %; Lymphocytes # (auto) 0.59 K/uL (1.2-3.4); Mean Corpuscular Hemoglobin 30.6 pg (25-34); Mean Corpuscular Hgb Conc 34.6 g/dL (32-36); Mean Corpuscular Volume 88.4 fL (80-100); Mean Platelet Volume 8.5 fL (7.4-10.4); Monocytes # (auto) 0.42 K/uL (0.11-0.59); Neutrophils # (auto) 3.09 K/uL (1.4-6.5); Neutrophils % (auto) 73.7 %; Platelet Count 242 K/uL (130-400); RDW Coefficient of Variation 13.5 % (11.5-14.5); RDW Standard Deviation 43.9 fL (36.4-46.3); Red Blood Count 4.93 M/uL (4.7-6.1)
[2019-05-28 12:36] LABS: Albumin Level 3.1 gm/dl (3.4-5.0); BUN Creatinine Ratio 13.4 (10-20); Calcium 9.3 mg/dl (8.5-10.1); Creatinine Clr Calc Pharmacy 148.4 ml/min; Est GFR (African American) 108.7; Est GFR (Non-African American) 93.8; Potassium 3.9 mmol/L (3.5-5.1)
[2019-05-28 12:39] LABS: Albumin Globulin Ratio 0.7 (0.9-2); Bilirubin,Total 0.6 mg/dl (0.2-1); Globulin 4.2 gm/dl (2.5-4.0); Total Protein 7.3 gm/dl (6.4-8.2)
--- NOTE | 2019-05-28 13:20 | Ultrasound Report ---
LEFT LOWER EXTREMITY VENOUS DOPPLER CLINICAL HISTORY: Left lower calf redness and edema. COMPARISON STUDY: Left lower extremity venous Doppler ultrasound May 16, 2019. TECHNIQUE: Sonography of the deep venous system of the left lower extremity was performed. Compressi on and augmentation were evaluated. FINDINGS: No deep venous thrombus is identified within the left lower extremity. Chronic appearing botello perficial thrombus within the left greater saphenous vein is unchanged since exam of May 16, 2019 . This extends for approximately 12 cm. IMPRESSION: 1. No evidence of deep venous thrombus within the left lower extremity. 2. No change in chronic appearing superficial thrombus within the left greater saphenous vein since u ltrasound of May 16, 2019. Electronically signed by: Peng Fierro M.D. 05/28/2019 1:19 PM
[2019-05-28] MEDS ORDERED: HYDROmorphone INJ 0.5 MG/0.5 ML SYR IV STA (13:49)
[2019-05-28] MEDS ORDERED: cefTRIAXone SODIUM 2,000 MG/70 ML BAG IV STA (13:49)
--- NOTE | 2019-05-28 15:03 | History & Physical Report ---
Date of Service May 28, 2019 Assessment & Plan (1) Cellulitis of left lower leg: Obs to F Failed outpatient treatment with Augmentin IV Rocephin IV Vanco Pain control elevate left leg when in in bed. DVT prophylaxis = Lovenox. (2) Acute stasis dermatitis of left lower extremity: I feel the edema is causing this symptomatic component. Triamcinolone oint 0.1% apply to left leg BID (3) CAD (coronary artery disease): Continue aspirin, Plavix, isosorbide, metoprolol, prn NTG. Continue atorvastatin. (4) Essential hypertension: Continue losartan and Lasix I added prn hydralazine. (5) Morbid obesity with BMI of 50.0-59.9, adult: Heart healthy diet Patient reports using Topamax for this diagnosis. History of Present Illness 59 y/o male presents to the ED for the 4th time since 05/16 with a swollen, reddened and painful left lower leg. He is being treated with Augmentin and had had 2 doses of IV Rocephin in the interim. The patient reports that the leg looks about the same, but the pain has gotten worse. There is no report of trauma, F/C, cough, or SOB. WBC count was 14.65 on 05/16 and down to 4.2 today. Primary Care Provider: Hany Berrios Allergies Allergy/AdvReac Type Severity Reaction Status Date / Time latex Allergy Mild RASH Unverified 05/28/19 11:39 Home Medications Home Medications Medication Instructions Recorded Confirmed Type aspirin [Aspirin Low Dose] 81 mg PO QAM 04/26/18 05/28/19 History atorvastatin 40 mg PO HS 04/26/18 05/28/19 History clopidogrel [Plavix] 75 mg PO QAM 04/26/18 05/28/19 History metoprolol succinate 50 mg PO BID 04/26/18 05/28/19 History losartan 50 mg PO QAM 12/01/18 05/28/19 History nitroglycerin 0.4 mg SUBLINGUAL Q5M PRN #6 tab 12/02/18 05/28/19 Rx amoxicillin-pot clavulanate 1 tab PO Q12H #20 tab 05/16/19 05/28/19 Rx [Augmentin] isosorbide mononitrate 60 mg PO QAM 05/16/19 05/28/19 History furosemide [Lasix] 20 mg PO DAILY 05/20/19 05/28/19 History furosemide [Lasix] 40 mg PO DAILY 05/20/19 05/28/19 History hydrocodone-acetaminophen [[place]] 1 - 2 tab PO Q6H PRN #20 tab 05/20/19 05/28/19 Rx topiramate [Topamax] 50 mg PO BID 05/20/19 05/28/19 History Past Med/Surg History Medical History Acute bronchitis (Acute) CAD (coronary artery disease) Chronic cough Essential hypertension Heart attack Hyperlipidemia Hypertension Morbid obesity with BMI of 50.0-59.9, adult Nonsustained ventricular tachycardia Obesity Pre-diabetes Surgical History H/O heart artery stent Family History Unknown Stroke Aortic aneurysm Diabetes Social History Preferred Language: Tajik Communication Ability: Effective Group Reservations Coordinator Required: No Beliefs That Will Affect Care: None marital status: Current Living Situation: Spouse Other Information That Helps Us Care for You: No Feels Safe at Home: Yes Safety Concerns: Feels Safe At This Time Smoking Status: Former smoker Tobacco Type: smokeless tobacco ; Do You Dip or Chew Tobacco: Yes (1/2 can a day) ; Second Hand Exposure: No ; Tobacco Cessation Education Requested by Patient: No Hx Alcohol Use: No Hx Substance Use: No Review of Systems Review of Systems: Constitutional- no fever; no weight loss Eyes- no acute visual changes ENT- no sinus drainage; no pharyngitis Pulmonary- no cough, no wheezing, no shortness of breath Cardiac- no chest pain, no palpitations, no orthopnea. GI- no nausea, no vomiting, no diarrhea, no melena, no hematochezia - no dysuria, no hematuria Musculoskeletal- no arthralgias, no myalgias Derm- As in HPI Hematologic- no unusual bruising, no unusual bleeding Lymphatics- no adenopathy Endocrine- no polyuria or polydipsia; no heat or cold intolerance Neuro- no headaches, no focal neurologic symptoms Psych- no anxiety, no depression Physical Exam Physical Exam: General- adult male, NAD Head- atraumatic Eyes- PERRL, EOMI, anicteric ENT- oropharynx clear Neck- supple, no JVD, no adenopathy, no thyromegaly. Lungs- CTA b/l no R/R/W Heart- Reg, Nrl S1S2 without M/R/G. Abdomen- normal bowel sounds, soft, nontender. Extremities- Bright red erythema to the left lower leg knee to ankle, with + 3 non-pitting edema, tender to the touch. Right leg has +1 edema. 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 Skin- No rash, see ext. Results & Data Vital Signs (Past 12 Hours) Vital Signs Temp Pulse Pulse Resp BP BP Pulse Ox 05/28/19 14:30 70 18 147/77 H 95 05/28/19 14:00 74 18 168/100 H 97 05/28/19 12:39 77 20 176/98 H 95 05/28/19 11:08 36.6 C 107 H 22 173/82 H 97 Laboratory Results Laboratory Results WBC 4.20 K/uL (4.8-10.8) L 05/28/19 12:11 RBC 4.93 M/uL (4.7-6.1) 05/28/19 12:11 Hgb 15.1 g/dL (14.0-18.0) 05/28/19 12:11 Hct 43.6 % (42-52) 05/28/19 12:11 MCV 88.4 fL (80-100) 05/28/19 12:11 MCH 30.6 pg (25-34) 05/28/19 12:11 MCHC 34.6 g/dL (32-36) 05/28/19 12:11 RDW Std Deviation 43.9 fL (36.4-46.3) 05/28/19 12:11 RDW Coeff of [place] 13.5 % (11.5-14.5) 05/28/19 12:11 Plt Count 242 K/uL (130-400) 05/28/19 12:11 MPV 8.5 fL (7.4-10.4) 05/28/19 12:11 Immature Gran % (Auto) 0.2 % 05/28/19 12:11 Neut % (Auto) 73.7 % 05/28/19 12:11 Lymph % (Auto) 14.0 % 05/28/19 12:11 [place] % (Auto) 10.0 % 05/28/19 12:11 Eos % (Auto) 1.9 % 05/28/19 12:11 Baso % (Auto) 0.2 % 05/28/19 12:11 Immature Gran # (Auto) 0.01 K/uL (0.00-0.02) 05/28/19 12:11 Neut # (Auto) 3.09 K/uL (1.4-6.5) 05/28/19 12:11 Lymph # (Auto) 0.59 K/uL (1.2-3.4) L 05/28/19 12:11 [place] # (Auto) 0.42 K/uL (0.11-0.59) 05/28/19 12:11 Eos # (Auto) 0.08 K/uL (0-0.5) 05/28/19 12:11 Baso # (Auto) 0.01 K/uL (0-0.2) 05/28/19 12:11 Sodium 140 mmol/L (136-145) 05/28/19 12:11 Potassium 3.9 mmol/L (3.5-5.1) 05/28/19 12:11 Chloride 109 mmol/L (98-107) H 05/28/19 12:11 Carbon Dioxide 25 mmol/L (21-32) 05/28/19 12:11 Anion Gap 6.0 (3-11) 05/28/19 12:11 BUN 12 mg/dl (7-18) 05/28/19 12:11 Creatinine 0.87 mg/dl (0.6-1.4) 05/28/19 12:11 Est Cr Clr Drug Dosing 148.4 ml/min 05/28/19 12:11 Est GFR ( Amer) 108.7 05/28/19 12:11 Est GFR (Non-Af Amer) 93.8 05/28/19 12:11 BUN/Creatinine Ratio 13.4 (10-20) 05/28/19 12:11 Glucose 112 mg/dl (70-99) H 05/28/19 12:11 Calcium 9.3 mg/dl (8.5-10.1) 05/28/19 12:11 Total Bilirubin 0.6 mg/dl (0.2-1) 05/28/19 12:11 AST 13 U/L (15-37) L 05/28/19 12:11 ALT 31 U/L (12-78) 05/28/19 12:11 Alkaline Phosphatase 92 U/L (45-117) 05/28/19 12:11 Total Protein 7.3 gm/dl (6.4-8.2) 05/28/19 12:11 Albumin 3.1 gm/dl (3.4-5.0) L 05/28/19 12:11 Globulin 4.2 gm/dl (2.5-4.0) H 05/28/19 12:11 Albumin/Globulin Ratio 0.7 (0.9-2) L 05/28/19 12:11 Diagnostic Findings [facility], [place] [phone] Ultrasound Report Patient: JAXON CHOU Date: 05/28/19 MR#: [id number]: [id number] Acct ID:[id number]: Date: 1960[facility] Zip: [place] [address] Age: 59Location: ED Sex: M Room/Bed: Att Phy:Diagnosis: INFECTION ON LEFT LEG - BEEN HERE TWICE - GETTING Jyothi Phy: Hany Berrios M.D.Service Date: 05/28/19 Fam Phy:Interpreting Phy: Peng Fierro MD Admit Phy: Ordering Phy: Leroy Glynn MD cc: ~ LEFT LOWER EXTREMITY VENOUS DOPPLER CLINICAL HISTORY: Left lower calf redness and edema. COMPARISON STUDY: Left lower extremity venous Doppler ultrasound May 16, 2019. TECHNIQUE: Sonography of the deep venous system of the left lower extremity was performed. Compression and augmentation were evaluated. FINDINGS: No deep venous thrombus is identified within the left lower extremity. Chronic appearing superficial thrombus within the left greater saphenous vein is unchanged since exam of May 16, 2019. This extends for approximately 12 cm. IMPRESSION: 1. No evidence of deep venous thrombus within the left lower extremity. 2. No change in chronic appearing superficial thrombus within the left greater saphenous vein since ultrasound of May 16, 2019. Electronically signed by: Peng Fierro M.D. 05/28/2019 1:19 PM Dictated: 05/28/19 1317 Transcribed: 05/28/191316 Code Status & VTE Plan VTE Prophylaxis Plan VTE Prophylaxis will be ordered: Yes PG Care Time/CCT Total # of Minutes Spent Total Time Spent: 60 Total Time Spent with Patient: Total time spent is greater than 50% in coordination of care (as documented) at patient's floor/unit and/or counseling patient: (1) CAD (coronary artery disease) Coronary Disease-Associated Artery/Lesion type: [place] artery [place] vs. transplanted heart: [place] heart Associated angina: with other forms of angina Qualified Code(s): I25.118 - Atherosclerotic heart disease of [place] coronary artery with other forms of angina pectoris
[2019-05-28] MEDS ORDERED: HydrALAZINE HCL 20 MG/ML VIAL IV PRN (15:34)
[2019-05-28] MEDS ORDERED: ONDANSETRON INJ 2 MG/ML 2 ML VIAL IV PRN (15:34)
[2019-05-28] MEDS ORDERED: ACETAMINOPHEN 325 MG TAB PO PRN (15:34)
[2019-05-28] MEDS ORDERED: NITROGLYCERIN SL 0.4 MG/TAB TAB SL PRN (15:34)
[2019-05-28] MEDS ORDERED: HYDROmorphone INJ 0.5 MG/0.5 ML SYR IV PRN (15:34)
[2019-05-28] MEDS: KETOROLAC 30 MG/ML VIAL IV PRN (16:06)
--- NOTE | 2019-05-28 17:44 | Emergency Department Note ---
Entered by Hitesh Olmstead acting as a scribe for ED Provider Note CHIEF COMPLAINT: Infection HISTORY OF PRESENT ILLNESS: The patient is a 59 year old male who presents to the Emergency Room with complaints of a constant infection to his distal left lower extremity that has been present for the past couple of weeks. The patient rates the pain as a 10/10 and nothing seems to help relieve it. The patient reports that this is his third visit to the ED for the same infection. After his first visit the patient was discharged with Augmentin BID, however 4 days later his symptoms were not improving so he returned to the ED where he was given a topical cream and told to finish the antibiotic. The patient adds that his antibiotic was extended by his PCP for another 4 days past the original course however he has still not noticed any improvements. The patient reports that the redness and swelling has increased since the onset and his pain is still severe. The patient notes he is on Plavix. Pt denies LOC, headache, fevers, chills, diaphoresis, visual changes, neck pain, chest pain, breathing difficulties, nausea, vomiting, abdominal pain, back pain, melena, hematochezia, urinary symptoms, numbness, weakness, lymphadenopathy, rash, or other complaints. REVIEW OF SYSTEMS: See HPI for pertinent positives and negatives. A total of ten systems were reviewed and were otherwise negative. PMHx/PSHx: CAD, HTN, Pre-diabetes, PR, Cellulitis SOCIAL HISTORY: Patient lives at home. Employed. PHYSICAL EXAM: GENERAL: Awake, alert, uncomfortable-appearing, in no distress HENT: Normocephalic, atraumatic. Oropharynx unremarkable. EYES: Normal conjunctiva. Sclera non-icteric. NECK: Inspection normal. Non-tender. Supple. No nuchal rigidity. FROM. No masses. RESPIRATORY: Clear to auscultation. No wheezes. No rales. Normal respiratory effort. CARDIAC: Borderline tachycardic rate. Normal rhythm. No murmurs. No rubs. Extremities warm and well perfused. Pulses equal. No JVD. GI: Soft, non-distended. No tenderness to palpation. No rebound or guarding. No masses. RECTAL: Deferred. MUSCULOSKELETAL: Atraumatic. Chest examination reveals no tenderness. The back is symmetrical on inspection without obvious abnormality. There is no CVA tenderness to palpation. No joint edema. LOWER EXTREMITIES: Left lower extremity is larger than right. Erythema on the distal left lower leg extending to just below the knee. Area tender and warm to touch. No open wounds or abscess. NEURO: Normal sensorium. No sensory or motor deficits noted. SKIN: No rash or jaundice noted. EMERGENCY DEPARTMENT COURSE: 1158: Past medical records reviewed. The patient was evaluated in room C04, and a complete history and physical examination were performed. 1348: I reevaluated the patient and he still has some pain. We discussed the plan to keep him in the hospital for IV antibiotics and he agreed with the plan. 1350: I spoke to Dr. Krueger - [facility] Hospitalist about the patient's case and he agreed to accept the patient for further evaluation. MEDICAL DECISION MAKING: C4 Prior records reviewed regarding second ER visit.. Triage Nursing notes reviewed and agree them. The patient's history was concerning for swelling and pain in the leg. Differential diagnosis: Etiologies such as DVT, joint effusion, infection, trauma, muscular, lymphedema, idiopathic, CHF, as well as others were entertained. Physical examination: The physical examination revealed progression of his swelling compared to the first visit as well as persistent redness, warmth and tenderness ER treatment provided: IV vancomycin IV Rocephin IV Dilaudid On reassessment the patient felt better. Diagnostics interpreted by me: The labs revealed an unremarkable CBC and chemistry panel. Imaging studies: Ultrasound imaging did not reveal any evidence of acute DVT. The patient has pain and the redness is persisting despite his oral antibiotics. There is increased swelling. I discussed further management in the hospital and the patient was in agreement as his symptoms have progressed since the first visit. I gave my usual and customary discussion regarding this issue. Consultation: A consultation was placed with the hospitalist. The case was discussed and diagnostics were reviewed. The patient was evaluated in the ER for further tr eatment. IMPRESSION: Left leg cellulitis PLAN: Being evaluated by the hospitalist The scribe's documentation has been prepared under my direction and personally reviewed by me in its entirety. I confirm that the note above accurately reflects all work, treatment, procedures, and medical decision making performed by me. Impression & Plan Cellulitis of left lower leg Past Med/Surg History Medical History Acute bronchitis (Acute) CAD (coronary artery disease) Chronic cough Essential hypertension Heart attack Hyperlipidemia Hypertension Morbid obesity with BMI of 50.0-59.9, adult Nonsustained ventricular tachycardia Obesity Pre-diabetes Surgical History H/O heart artery stent Family History Unknown Stroke Aortic aneurysm Diabetes Social History Preferred Language: Kazakh Communication Ability: Effective Rural Route Carrier Required: No Beliefs That Will Affect Care: None marital status: Current Living Situation: Spouse Feels Safe at Home: Yes Smoking Status: Former smoker Tobacco Type: smokeless tobacco ; Second Hand Exposure: No ; Hx Alcohol Use: No Hx Substance Use: No Results & Data Vital Signs Vital Signs - 24 hr 05/28/19 11:08 05/28/19 12:39 05/28/19 14:00 Temperature 36.6 C Temperature Source Oral Pulse Rate 107 H Pulse Rate [Apical] 77 74 Pulse Rhythm Regular Pulse Rhythm [Apical] Regular Regular Pulse Strength Normal Respiratory Rate 22 20 18 Respiratory Effort / Characteristics Non-Labored Non-Labored Spontaneous Non-Labored Spontaneous Respiratory Depth Normal Normal Normal Respiratory Pattern Regular Regular Blood Pressure 173/82 H Blood Pressure [Right Radial Artery] 176/98 H 168/100 H Blood Pressure Mean 112 Blood Pressure Mean [Right Radial Artery] 124 122 Blood Pressure Position Sitting Pulse Oximetry 97 95 97 Oxygen Delivery Method Room Air Room Air Room Air Sepsis Recent Fever Within 48 Hours No Sepsis Action Taken by Nursing No Action Required Home Medications Current Medication List: was personally reviewed by me Laboratory Data Attestation: I reviewed the patient's lab results. Result diagrams: 05/28/19 12:11 05/28/19 12:11 Lab Results 05/28/19 05/28/19 Range/Units 12:11 12:11 WBC 4.20 L (4.8-10.8) K/uL RBC 4.93 (4.7-6.1) M/uL Hgb 15.1 (14.0-18.0) g/dL Hct 43.6 (42-52) % MCV 88.4 (80-100) fL MCH 30.6 (25-34) pg MCHC 34.6 (32-36) g/dL RDW Std Deviation 43.9 (36.4-46.3) fL RDW Coeff of [place] 13.5 (11.5-14.5) % Plt Count 242 (130-400) K/uL MPV 8.5 (7.4-10.4) fL Immature Gran % (Auto) 0.2 % Neut % (Auto) 73.7 % Lymph % (Auto) 14.0 % [place] % (Auto) 10.0 % Eos % (Auto) 1.9 % Baso % (Auto) 0.2 % Immature Gran # (Auto) 0.01 (0.00-0.02) K/uL Neut # (Auto) 3.09 (1.4-6.5) K/uL Lymph # (Auto) 0.59 L (1.2-3.4) K/uL [place] # (Auto) 0.42 (0.11-0.59) K/uL Eos # (Auto) 0.08 (0-0.5) K/uL Baso # (Auto) 0.01 (0-0.2) K/uL Sodium 140 (136-145) mmol/L Potassium 3.9 (3.5-5.1) mmol/L Chloride 109 H (98-107) mmol/L Carbon Dioxide 25 (21-32) mmol/L Anion Gap 6.0 (3-11) BUN 12 (7-18) mg/dl Creatinine 0.87 (0.6-1.4) mg/dl Est Cr Clr Drug Dosing 148.4 ml/min Est GFR ( Amer) 108.7 Est GFR (Non-Af Amer) 93.8 BUN/Creatinine Ratio 13.4 (10-20) Glucose 112 H (70-99) mg/dl Calcium 9.3 (8.5-10.1) mg/dl Total Bilirubin 0.6 (0.2-1) mg/dl AST 13 L (15-37) U/L ALT 31 (12-78) U/L Alkaline Phosphatase 92 (45-117) U/L Total Protein 7.3 (6.4-8.2) gm/dl Albumin 3.1 L (3.4-5.0) gm/dl Globulin 4.2 H (2.5-4.0) gm/dl Albumin/Globulin Ratio 0.7 L (0.9-2) Administered Medications Ketorolac Tromethamine (Toradol) 30 mg IV Q6H PRN PRN Reason: Pain Stop: 06/02/19 15:53 Last Admin: 05/28/19 16:06 Dose: 30 mg Documented by: [id number] Discontinued Medications Hydromorphone HCl (Dilaudid) 0.5 mg IV NOW STA Stop: 05/28/19 13:50 Last Admin: 05/28/19 14:17 Dose: 0.5 mg Documented by: [id number] Vancomycin HCl 2,750 mg/ (Sodium Chloride) 555 mls @ 200 mls/hr IV NOW ONE Stop: 05/28/19 14:46 Last Infusion: 05/28/19 16:24 Dose: 0 mls/hr Documented by: [id number] Infusion: 05/28/19 14:55 Dose: 200 mls/hr Documented by: [id number] Infusion: 05/28/19 14:16 Dose: 0 mls/hr Documented by: [id number] Admin: 05/28/19 12:35 Dose: 200 mls/hr Documented by: [id number] Ceftriaxone Sodium (Rocephin) 2,000 mg in 70 mls @ 140 mls/hr IV NOW STA Stop: 05/28/19 14:18 Last Infusion: 05/28/19 14:55 Dose: 0 mls/hr Documented by: [id number] Admin: 05/28/19 14:17 Dose: 140 mls/hr Documented by: [id number] Imaging Data Radiologist's Impression: Radiology results as stated below per my review and the radiologist's interpretation: LEFT LOWER EXTREMITY VENOUS DOPPLER CLINICAL HISTORY: Left lower calf redness and edema. COMPARISON STUDY: Left lower extremity venous Doppler ultrasound May 16, 2019. TECHNIQUE: Sonography of the deep venous system of the left lower extremity was performed. Compression and augmentation were evaluated. FINDINGS: No deep venous thrombus is identified within the left lower extremity. Chronic appearing superficial thrombus within the left greater saphenous vein is unchanged since exam of May 16, 2019. This extends for approximately 12 cm. IMPRESSION: 1. No evidence of deep venous thrombus within the left lower extremity. 2. No change in chronic appearing superficial thrombus within the left greater saphenous vein since ultrasound of May 16, 2019. Electronically signed by: Peng Fierro M.D. 05/28/2019 1:19 PM Blood Pressure Blood Pressure Findings: Elevated blood pressure Blood Pressure Disposition: further management by hospitalist Discharge Plan Visit Data *Final* Discharge Date/Time: 05/28/19 15:10 Chief Complaint: Infection Stated Complaint: INFECTION LEFT LEG-BEEN HERE TWICE-GETTING WORSE ED Provider: Leroy Glynn Discharge Problem: Cellulitis of left lower leg Patient Disposition: Admitted As Inpatient Discharge Instructions Interventions: ED Discharge Assessment Last Done: 05/28/19 15:10 The scribe's documentation has been prepared under my direction and personally reviewed by me in its entirety. I confirm that the note above accurately reflects all work, treatment, procedures, and medical decision making performed by me.
[2019-05-28] MEDS: VANCOMYCIN HCL 2,500 MG in SODIUM CHLORIDE 0.9% 500 ML IV SCH (21:12)
[2019-05-28] MEDS: TRIAMCINOLONE ACET 0.1% OINT 15 GM TUBE EXT SCH (21:12)
[2019-05-28] MEDS: ENOXAPARIN INJ 40 MG/0.4 ML SYR SQ SCH (21:13)
[2019-05-28] MEDS: FAMOTIDINE 20 MG TAB PO SCH (21:13)
[2019-05-28] MEDS: METOPROLOL SUCC 50MG EXT REL TAB PO SCH (21:13)
[2019-05-28] MEDS: TOPIRAMATE 50 MG TAB PO SCH (21:13)
[2019-05-28] MEDS: ATORVASTATIN 40 MG TAB PO SCH (21:14)
[2019-05-29] MEDS: KETOROLAC 30 MG/ML VIAL IV PRN ×4 (04:07→23:30)
[2019-05-29 06:30] LABS: Hematocrit (blood only) 41.5 % (42-52); Mean Corpuscular Hemoglobin 29.9 pg (25-34); Mean Corpuscular Hgb Conc 33.7 g/dL (32-36); Mean Corpuscular Volume 88.7 fL (80-100); Mean Platelet Volume 8.6 fL (7.4-10.4); Platelet Count 213 K/uL (130-400); RDW Coefficient of Variation 13.7 % (11.5-14.5); RDW Standard Deviation 44.7 fL (36.4-46.3); Red Blood Count 4.68 M/uL (4.7-6.1); White Blood Count 3.93 K/uL (4.8-10.8)
[2019-05-29 07:04] LABS: BUN Creatinine Ratio 13.7 (10-20); Calcium 8.7 mg/dl (8.5-10.1); Est GFR (African American) 96.7; Est GFR (Non-African American) 83.5; Potassium 4.1 mmol/L (3.5-5.1)
[2019-05-29] MEDS: VANCOMYCIN HCL 2,500 MG in SODIUM CHLORIDE 0.9% 500 ML IV SCH ×2 (08:23→18:37)
[2019-05-29] MEDS: TOPIRAMATE 50 MG TAB PO SCH ×2 (08:29→20:45)
[2019-05-29] MEDS: ASPIRIN 81 MG ECTAB PO SCH (08:29)
[2019-05-29] MEDS: LOSARTAN POTASSIUM 50 MG TAB PO SCH (08:29)
[2019-05-29] MEDS: ISOSORBIDE MONO EXTENDED REL 60 MG TABCR PO SCH (08:30)
[2019-05-29] MEDS: METOPROLOL SUCC 50MG EXT REL TAB PO SCH ×2 (08:30→20:44)
[2019-05-29] MEDS: FUROSEMIDE 40 MG TAB PO SCH (08:30)
[2019-05-29] MEDS: FAMOTIDINE 20 MG TAB PO SCH ×2 (08:30→20:43)
[2019-05-29] MEDS: TRIAMCINOLONE ACET 0.1% OINT 15 GM TUBE EXT SCH ×2 (08:31→20:43)
[2019-05-29] MEDS: CLOPIDOGREL BISULFATE 75 MG TAB PO SCH (09:19)
--- NOTE | 2019-05-29 12:49 | Hospitalist Progress Note ---
Date of Service May 29, 2019 Assessment & Plan (1) Cellulitis of left lower leg: Failed outpatient treatment with Augmentin Continue IV Rocephin, IV Vanco Pain control elevate left leg when in in bed. DVT prophylaxis = Lovenox. (2) Acute stasis dermatitis of left lower extremity: Continue triamcinolone oint 0.1% apply to left leg BID (3) CAD (coronary artery disease): Continue aspirin, Plavix, isosorbide, metoprolol, prn NTG. Continue atorvastatin. (4) Essential hypertension: Continue losartan and Lasix Blood pressure was elevated at times since admission, may be pain associated - control pain, hydralazine if necessary (5) Morbid obesity with BMI of 50.0-59.9, adult: Heart healthy diet Patient reports using Topamax for this diagnosis. Subjective Mr. Mendiola continues to have pain in his left leg at the site of his cellulitis. He otherwise has no complaints. No systemic symptoms ROS Constitutional: no chills, aches, sweats or fever Respiratory: no sob,cough, sputum, or wheezing Cardiac: no chest pain, palpitations, edema, orthopnea or lightheadedness GI: no abdominal pain, nausea, vomiting, diarrhea or constipation : no dysuria or hesitancy Extremities: no joint pain or weakness Skin: see HPI All other systems reviewed and negative Physical Exam Physical Exam: General: no distress Eyes: normal inspection, PERLL Respiratory: chest non tender, clear to auscultation, normal breath sounds, no respiratory distress, no accessory muscle use Cardiac: regular rate and rhythm, no rub or gallop, no murmur, left leg lower extremity +2 pitting edema, no jvd GI/: active bowel sounds, no abd pain or tenderness, soft, non distended Extremities: normal range of motion, normal strength, non tender Neuro/Psych: alert and oriented x 3, normal mood and affect Skin: normal color, dry, left lower leg erythema Results & Data Vital Signs (Past 12 Hours) Vital Signs Temp Pulse Resp BP Pulse Ox 05/29/19 11:00 63 121/79 05/29/19 07:42 36.6 C 65 18 159/83 H 95 PG Care Time/CCT Total # of Minutes Spent Total Time Spent with Patient: Total time spent is greater than 50% in coordination of care (as documented) at patient's floor/unit and/or counseling patient: (1) CAD (coronary artery disease) Associated angina: with other forms of angina Coronary Disease-Associated Artery/Lesion type: [place] artery [place] vs. transplanted heart: [place] heart Qualified Code(s): I25.118 - Atherosclerotic heart disease of [place] coronary artery with other forms of angina pectoris
[2019-05-29] MEDS: cefTRIAXone SODIUM 2,000 MG in DEXTROSE 5% 50 ML IV SCH (13:44)
[2019-05-29] MEDS ORDERED: VANCOMYCIN TROUGH ONE (17:30)
--- NOTE | 2019-05-29 19:42 | Pharmacy Report ---
Pharm Abx/Gly Prg Nt - Date of Service May 29, 2019 - Scope Pharmacy has been consulted to manage IV Vancomycin dosing for this patient as per the Pharmacy & Therapeutics Committee approved dosing protocols. - Objective Vital Signs (Past 12hrs): Vital Signs Temp Pulse Pulse Resp BP Pulse Ox 05/29/19 15:23 37.0 C 61 22 108/55 L 96 05/29/19 11:00 63 121/79 05/29/19 07:42 36.6 C 65 18 159/83 H 95 Lab Results: Laboratory Tests (24 Hours) 05/29/19 05/29/19 05/29/19 17:22 06:06 06:06 WBC 3.93 L Creatinine 0.98 Est Cr Clr Drug Dosing 131.0 Vancomycin Trough 20.7 Accuchecks BSG (last 24 hours):: 05/29/19 06:06 Glucose 116 H - Outpatient Anti-Diabetic Regimen Recent Pertinent Medications: Outpatient Anti-diabetic Regimen: * [] * A1c = [] % [date] The patient is currently receiving: * Basal insulin: Lantus [] units every [] hours * Correctional Insulin: Novolog Correction per scale ACHS Goal Range: Low [] mg/dL - High [] mg/dL Correction Factor: [] mg/dL/unit * Prandial insulin: Per carb ratio of 1 unit per [] grams CHO consumed * Oral Agents: Risk Factors for Insulin Resistance: * Steroids: * Infection: * Pressors: * IVF: * Recent Surgery * Diet: * Mechanical Ventilation: - Assessment & Plan Assessment: ID: * 59 year old M receiving IV Vancomycin 2500mg IV every 10 hours for treatment of left lower extremity cellulitis * Day # 2 of antimicrobial therapy * Patient with BMI 49.2 kg/m2 thus expect dose accumulation with ongoing therapy thus will widen the dosing interval to target troughs in the therapeutic range Plan: ANTIMICROBIAL THERAPY Vancomycin * Trough level of 20.7 mcg/mL (drawn slightly early) - [therapeutic] * Change to 2500 mg IV every 12 hours * Goal trough level: 13 to 17 mcg/mL for cellulitis indication * Trough level ordered for: Thursday05/31/19 prior to the 0600 hours dose Pharmacy will follow patient and adjust orders on a daily basis. Thank you for allowing us to participate in this patients care.
[2019-05-29] MEDS: OXYCODONE HCL IR 5 MG TAB (IMMEDIATE RELEASE) PO PRN (20:43)
[2019-05-29] MEDS: ENOXAPARIN INJ 40 MG/0.4 ML SYR SQ SCH (20:44)
[2019-05-29] MEDS: ATORVASTATIN 40 MG TAB PO SCH (20:44)
[2019-05-30] MEDS: KETOROLAC 30 MG/ML VIAL IV PRN ×3 (05:21→19:41)
[2019-05-30] MEDS ORDERED: VANCOMYCIN HCL 2,500 MG in SODIUM CHLORIDE 0.9% 500 ML IV SCH ×2 (06:00→20:00)
[2019-05-30] MEDS: OXYCODONE HCL IR 5 MG TAB (IMMEDIATE RELEASE) PO PRN (07:35)
[2019-05-30] MEDS: FAMOTIDINE 20 MG TAB PO SCH ×2 (07:36→20:39)
[2019-05-30] MEDS: ISOSORBIDE MONO EXTENDED REL 60 MG TABCR PO SCH (07:36)
[2019-05-30] MEDS: ASPIRIN 81 MG ECTAB PO SCH (07:37)
[2019-05-30] MEDS: CLOPIDOGREL BISULFATE 75 MG TAB PO SCH (07:37)
[2019-05-30] MEDS: TRIAMCINOLONE ACET 0.1% OINT 15 GM TUBE EXT SCH ×2 (07:37→20:40)
[2019-05-30] MEDS: METOPROLOL SUCC 50MG EXT REL TAB PO SCH ×2 (07:37→20:37)
[2019-05-30] MEDS: TOPIRAMATE 50 MG TAB PO SCH ×2 (07:37→20:40)
[2019-05-30] MEDS: FUROSEMIDE 40 MG TAB PO SCH (07:37)
[2019-05-30] MEDS: LOSARTAN POTASSIUM 50 MG TAB PO SCH (09:35)
[2019-05-30 10:26] LABS: Basophils # (auto) 0.01 K/uL (0-0.2); Basophils % (auto) 0.3 %; Eosinophils # (auto) 0.07 K/uL (0-0.5); Eosinophils % (auto) 2.3 %; Hematocrit (blood only) 36.1 % (42-52); Hemoglobin 12.1 g/dL (14.0-18.0); Immature Granulocytes # (auto) 0.01 K/uL (0.00-0.02); Immature Granulocytes % (auto) 0.3 %; Lymphocytes # (auto) 0.63 K/uL (1.2-3.4); Lymphocytes % (auto) 20.5 %; Mean Corpuscular Hemoglobin 30.2 pg (25-34); Mean Corpuscular Hgb Conc 33.5 g/dL (32-36); Mean Platelet Volume 8.3 fL (7.4-10.4); Monocytes # (auto) 0.18 K/uL (0.11-0.59); Monocytes % (auto) 5.8 %; Neutrophils # (auto) 2.18 K/uL (1.4-6.5); Neutrophils % (auto) 70.8 %; Platelet Count 167 K/uL (130-400); RDW Coefficient of Variation 13.8 % (11.5-14.5); RDW Standard Deviation 45.7 fL (36.4-46.3); Red Blood Count 4.01 M/uL (4.7-6.1); White Blood Count 3.08 K/uL (4.8-10.8)
[2019-05-30 10:52] LABS: BUN Creatinine Ratio 12.9 (10-20); Calcium 8.1 mg/dl (8.5-10.1); Creatinine Clr Calc Pharmacy 112.6 ml/min; Est GFR (African American) 80.6; Est GFR (Non-African American) 69.5; Potassium 3.9 mmol/L (3.5-5.1)
--- NOTE | 2019-05-30 13:07 | Hospitalist Progress Note ---
Date of Service May 30, 2019 Assessment & Plan (1) Cellulitis of left lower leg: * Failed outpatient treatment with Augmentin * Unchanged-- pain/erythema without significant improvement despite IV rocephin/vanco --> will switch to IV Zosyn as patient's pain/erythema without improvement and would broaden coverage -- could d/c on oral keflex/cipro if effective * Pain control- oxycodone and Toradol * Continued pain appears to be at least partially neuropathic -- will add gabapentin -- monitor response * Elevate left leg when in in bed. * MRSA swab negative therefore vanco discontinued (2) Acute stasis dermatitis of left lower extremity: * Continue triamcinolone oint 0.1% apply to left leg BID (3) CAD (coronary artery disease): * Continue aspirin 81mg, Plavix 75mg, isosorbide, metoprolol 50mg BID, prn NTG. * Continue atorvastatin 40mg (4) Essential hypertension: * Continue losartan 50mg and Lasix 40mg daily * Blood pressure was elevated at times since admission, may be pain associated - control pain, hydralazine if necessary * Currently stable, 122/68 (5) Morbid obesity with BMI of 50.0-59.9, adult: * Heart healthy diet * Denies history of sleep apnea * Patient reports using Topamax for this diagnosis for weight loss (6) Pre-diabetes: * A1c 10/21 in April 2018, although patient unaware of ever hearing about this * Will repeat A1c in AM -- ?contributing to slow healing, neuropathic type pain * Will also obtain B12 level in morning (7) DVT prophylaxis: * Lovenox 40mg SQ daily while inpatient Dispo: possible discharge in 1--2 days, pending improvement in symptoms Supervising Physician Co-Signing Physician Notes PA Supervision Note: I did not personally see or examine the patient today, but I verified all gay points of JOEY Jefferson's assessment and plan with the following exceptions/additions: changes made to A/P above as needed Subjective Patient laying in bed upon arrival. In no acute distress. When asked, patient states his pain is a "10/10" and much worse than yesterday. He states it is not as bad as when he came in, but it has since then gotten worse again. States that the oxycodone has not done anything for his pain, and the IV toradol has been only minimally effective. Denies any spread of redness, but states the pain is primarily on the medial aspect of his left ankle. Described as burning/stabbing. Denies any radiation however. States he does not have diabetes and has never been told about "pre- diabetes" or is able to confirm any repeat A1c testing since last year. Review of Systems Review of Systems: All systems reviewed & are unremarkable except as noted in HPI & below Constitutional: no fever and no chills Eyes: no diplopia and no problem reported Respiratory: no cough and no dyspnea Cardiovascular: no chest pain, no palpitations and no edema Gastrointestinal: no nausea, no vomiting, no change in stools, no constipation and no diarrhea/loose stools Musculoskeletal: left leg pain Integumentary: no rash, no new lesions and no pruritus Neurologic: no numbness and no paresthesia "burning"- left leg Physical Exam Constitutional: WD/WN, vitals as above + obese; no acute distress Eyes: + anicteric sclerae and PERRL Neck: trachea midline, no thyromegaly Respiratory: end expiratory wheezing, posterior lung [place] Cardiovascular: Rate/Rhythm: regular rate and regular rhythm Heart Sounds: normal S1 and normal S2; no murmur Vessels: no JVD Extremities: + edema (1+ pitting RLE, 2+ pitting edema LLE) Gastrointestinal (Abdomen): normal bowel sounds, soft, nontender, no hepatosplenomegaly Musculoskeletal: no cyanosis or clubbing, extremities motor strength 5/5 Skin: erythema medial aspect left lower extremity, extending to posterior calf, slightly up posterior thigh as well as down to medial ankle/dorsal aspect of left foot. without evidence of drainage. warm to the touch cap refill <2 seconds NVI Neurologic: PERRL, EOMI, accommodation nl, no face palsy, no dysarthria Psychiatric: Orientation: alert and oriented x 3 Lymphatic: no cervical or axillary lymphadenopathy Results & Data Vital Signs (Past 12 Hours) Vital Signs Temp Pulse Resp BP Pulse Ox 05/30/19 08:25 36.5 C 70 18 150/62 H 96 Laboratory Results 05/30/19 05/30/19 05/29/19 Range/Units 10:12 10:12 17:22 WBC 3.08 L (4.8-10.8) K/uL RBC 4.01 L (4.7-6.1) M/uL Hgb 12.1 L (14.0-18.0) g/dL Hct 36.1 L (42-52) % MCV 90.0 (80-100) fL MCH 30.2 (25-34) pg MCHC 33.5 (32-36) g/dL RDW Std Deviation 45.7 (36.4-46.3) fL RDW Coeff of [place] 13.8 (11.5-14.5) % Plt Count 167 (130-400) K/uL MPV 8.3 (7.4-10.4) fL Immature Gran % (Auto) 0.3 % Neut % (Auto) 70.8 % Lymph % (Auto) 20.5 % [place] % (Auto) 5.8 % Eos % (Auto) 2.3 % Baso % (Auto) 0.3 % Immature Gran # (Auto) 0.01 (0.00-0.02) K/uL Neut # (Auto) 2.18 (1.4-6.5) K/uL Lymph # (Auto) 0.63 L (1.2-3.4) K/uL [place] # (Auto) 0.18 (0.11-0.59) K/uL Eos # (Auto) 0.07 (0-0.5) K/uL Baso # (Auto) 0.01 (0-0.2) K/uL Sodium 137 (136-145) mmol/L Potassium 3.9 (3.5-5.1) mmol/L Chloride 107 (98-107) mmol/L Carbon Dioxide 27 (21-32) mmol/L Anion Gap 3.0 (3-11) BUN 15 (7-18) mg/dl Creatinine 1.14 (0.6-1.4) mg/dl Est Cr Clr Drug Dosing 112.6 ml/min Est GFR ( Amer) 80.6 Est GFR (Non-Af Amer) 69.5 BUN/Creatinine Ratio 12.9 (10-20) Glucose 117 H (70-99) mg/dl Calcium 8.1 L (8.5-10.1) mg/dl Vancomycin Trough 20.7 (See Comment) mcg/ml PG Care Time/CCT Total # of Minutes Spent Total Time Spent with Patient: Total time spent is greater than 50% in coordination of care (as documented) at patient's floor/unit and/or counseling patient: (1) CAD (coronary artery disease) Associated angina: with other forms of angina Coronary Disease-Associated Artery/Lesion type: [place] artery [place] vs. transplanted heart: [place] heart Qualified Code(s): I25.118 - Atherosclerotic heart disease of [place] coronary artery with other forms of angina pectoris
[2019-05-30] MEDS ORDERED: GABAPENTIN 100 MG CAP PO SCH (13:15)
[2019-05-30] MEDS: cefTRIAXone SODIUM 2,000 MG in DEXTROSE 5% 50 ML IV SCH (14:17)
[2019-05-30] MEDS ORDERED: ALBUTEROL 0.083% NEBU SOLN 3 ML VIAL NEB PRN (16:56)
[2019-05-30] MEDS ORDERED: PIPERACILL/TAZOBAC CONSULT ACTIVE PRN (17:26)
[2019-05-30] MEDS ORDERED: VANCOMYCIN TROUGH ONE (17:30)
[2019-05-30] MEDS: PIPERACILLIN/TAZOBACTAM 4.5 GM in DEXTROSE 5% 100 ML IV SCH (18:14)
[2019-05-30] MEDS: ATORVASTATIN 40 MG TAB PO SCH (20:37)
[2019-05-30] MEDS: ENOXAPARIN INJ 40 MG/0.4 ML SYR SQ SCH (20:37)
[2019-05-31] MEDS: PIPERACILLIN/TAZOBACTAM 4.5 GM in DEXTROSE 5% 100 ML IV SCH ×3 (02:17→18:56)
[2019-05-31] MEDS: KETOROLAC 30 MG/ML VIAL IV PRN ×3 (04:00→16:43)
[2019-05-31] MEDS ORDERED: VANCOMYCIN TROUGH ONE ×2 (05:30→09:30)
[2019-05-31] MEDS: OXYCODONE HCL IR 5 MG TAB (IMMEDIATE RELEASE) PO PRN ×3 (06:16→21:02)
[2019-05-31 06:32] LABS: Basophils # (auto) 0.02 K/uL (0-0.2); Basophils % (auto) 0.6 %; Eosinophils # (auto) 0.07 K/uL (0-0.5); Eosinophils % (auto) 2.2 %; Immature Granulocytes # (auto) 0.01 K/uL (0.00-0.02); Immature Granulocytes % (auto) 0.3 %; Lymphocytes # (auto) 0.56 K/uL (1.2-3.4); Lymphocytes % (auto) 17.4 %; Mean Corpuscular Hemoglobin 29.4 pg (25-34); Mean Corpuscular Hgb Conc 33.3 g/dL (32-36); Mean Corpuscular Volume 88.2 fL (80-100); Mean Platelet Volume 8.7 fL (7.4-10.4); Monocytes # (auto) 0.27 K/uL (0.11-0.59); Monocytes % (auto) 8.4 %; Neutrophils # (auto) 2.28 K/uL (1.4-6.5); Neutrophils % (auto) 71.1 %; Platelet Count 184 K/uL (130-400); RDW Coefficient of Variation 13.6 % (11.5-14.5); RDW Standard Deviation 44.3 fL (36.4-46.3); Red Blood Count 4.42 M/uL (4.7-6.1); White Blood Count 3.21 K/uL (4.8-10.8)
[2019-05-31 07:11] LABS: BUN Creatinine Ratio 13.5 (10-20); Calcium 8.4 mg/dl (8.5-10.1); Creatinine Clr Calc Pharmacy 117.8 ml/min; Est GFR (African American) 85.1; Est GFR (Non-African American) 73.4; Potassium 3.9 mmol/L (3.5-5.1)
[2019-05-31 08:35] LABS: Estimated Average Glucose 131 mg/dl; Hemoglobin A1C 6.2 % (4.5-5.6)
[2019-05-31] MEDS: FAMOTIDINE 20 MG TAB PO SCH ×2 (08:57→21:00)
[2019-05-31] MEDS: ISOSORBIDE MONO EXTENDED REL 60 MG TABCR PO SCH (08:58)
[2019-05-31] MEDS: METOPROLOL SUCC 50MG EXT REL TAB PO SCH ×2 (08:58→21:05)
[2019-05-31] MEDS: LOSARTAN POTASSIUM 50 MG TAB PO SCH (08:58)
[2019-05-31] MEDS: TOPIRAMATE 50 MG TAB PO SCH ×2 (08:58→21:00)
[2019-05-31] MEDS: CLOPIDOGREL BISULFATE 75 MG TAB PO SCH (08:58)
[2019-05-31] MEDS: ASPIRIN 81 MG ECTAB PO SCH (08:59)
[2019-05-31] MEDS: FUROSEMIDE 40 MG TAB PO SCH (08:59)
[2019-05-31] MEDS ORDERED: GABAPENTIN 100 MG CAP PO SCH ×2 (09:00→14:00)
[2019-05-31] MEDS: TRIAMCINOLONE ACET 0.1% OINT 15 GM TUBE EXT SCH ×2 (09:00→20:59)
--- NOTE | 2019-05-31 12:53 | Hospitalist Progress Note ---
Date of Service May 31, 2019 Assessment & Plan (1) Cellulitis of left lower leg: * Failed outpatient treatment with Augmentin * Improving-- pain/erythema intially without significant improvement despite IV rocephin/vanco and was switched to IV Zosyn (MRSA swab negative) with improvement of erythema/swelling, but not pain -- possible transition to keflex/cipro tomorrow if continued improvement. * Elevate left leg while in bed -- stressed importance to decrease swelling * Pain control- oxycodone and Toradol. Continued pain likely to be at least partially neuropathic -- gabapentin 100mg daily added 05/30 --> increase to TID dosing with minimal improvement--> will increase to 200mg TID and monitor response * U/S venous doppler LLE performed on 05/16/19 and repeated on 05/28 which were both negative for DVT, although patient does have superficial nonocclusive thrombus of L greater saphenous v (2) Acute stasis dermatitis of left lower extremity: * Continue triamcinolone oint 0.1% apply to left leg BID (3) CAD (coronary artery disease): * Continue aspirin 81mg, Plavix 75mg, isosorbide, metoprolol 50mg BID, prn NTG. * Continue atorvastatin 40mg (4) Essential hypertension: * Continue losartan 50mg and Lasix 40mg daily * Blood pressure was elevated at times since admission, may be pain associated - control pain, hydralazine if necessary * Currently stable, 135/75 (5) Morbid obesity with BMI of 50.0-59.9, adult: * Heart healthy diet * Denies history of sleep apnea * Patient reports using Topamax for this diagnosis for weight loss (6) Pre-diabetes: * A1c 5.9% in April 2018, although patient unaware of ever hearing about this * Repeat A1c today at 6.2-- counselled on what this means, diet/exercise, contributing to slow healing, neuropathic type pain associated with complications of DM -- will need close follow up outpatient, possible initiation of metformin * B12 wnl at 541 (7) DVT prophylaxis: * Lovenox 40mg SQ daily while inpatient Dispo: possible discharge tomorrow if pain improved and redness continues to improve and are able to transition to PO abx Supervising Physician Co-Signing Physician Notes PA Supervision Note: I did not personally see or examine the patient today, but I verified all gay points of JOEY Jefferson's assessment and plan with the following exceptions/additions: changes made to A/P above as needed Subjective Patient evaluated this morning. When asked how he was doing, patient replied "terrible" and states that he is continuing to have severe pain in his left leg, although he appears more comfortable resting in bed. He states he is unsure if the redness has gotten any better but that it is still hot to the touch. He states that the pain is a "burning" sensation that shoots down into his toes. He is able to move all extremities without difficulty, but does have pain with weight bearing. Again denies any trauma to the area or open sores. He continues to express that the toradol does help, albeit minimally, but the oxycodone does not touch the pain. He is unable to confirm or deny that the gabapentin had much effect on his pain, but he did only receive two total doses and is agreeable to increase the frequency to see if that helps to bring his pain down. Discussed elevated A1c as compared to last year, at 6.2, which is still considered pre-DM but could discussed impact of DM and complications such as neuropathy. Discussed B12 wnl. Review of Systems Review of Systems: All systems reviewed & are unremarkable except as noted in HPI & below Constitutional: no fever and no chills Ear, Nose, Mouth, Throat: no sore throat and no dysphagia Respiratory: no cough and no dyspnea Cardiovascular: + edema; no chest pain and no palpitations Gastrointestinal: no abdominal pain, no nausea and no vomiting Genitourinary: no dysuria and no difficulty urinating Neurologic: "burning"- left leg Physical Exam Constitutional: WD/WN, vitals as above Eyes: + anicteric sclerae and PERRL Neck: trachea midline, no thyromegaly Cardiovascular: Rate/Rhythm: regular rate and regular rhythm Heart Sounds: normal S1 and normal S2; no murmur Vessels: no JVD Extremities: + edema (1+ pitting RLE, 2+ pitting edema LLE) Gastrointestinal (Abdomen): normal bowel sounds, soft, nontender, no hepatosplenomegaly Musculoskeletal: no cyanosis or clubbing, extremities motor strength 5/5 Skin: erythema, warmth of medial aspect left lower extremity extending to medial ankle/dorsal aspect of foot. without evidence of drainage improvement of erythema of posterior calf, no longer extending up posterior thigh cap refill <2 seconds Neurologic: PERRL, EOMI, accommodation nl, no face palsy, no dysarthria NVI 2+ pulses posterior tibial, dorsalis pedis bilaterally Psychiatric: Orientation: alert and oriented x 3 Lymphatic: no cervical or axillary lymphadenopathy Results & Data Vital Signs (Past 12 Hours) Vital Signs Temp Pulse Resp BP Pulse Ox 05/31/19 08:56 67 135/75 05/31/19 07:19 36.6 C 59 L 20 121/59 L 96 Laboratory Results 05/31/19 05/31/19 05/31/19 Range/Units 06:09 06:09 06:09 WBC 3.21 L (4.8-10.8) K/uL RBC 4.42 L (4.7-6.1) M/uL Hgb 13.0 L (14.0-18.0) g/dL Hct 39.0 L (42-52) % MCV 88.2 (80-100) fL MCH 29.4 (25-34) pg MCHC 33.3 (32-36) g/dL RDW Std Deviation 44.3 (36.4-46.3) fL RDW Coeff of [place] 13.6 (11.5-14.5) % Plt Count 184 (130-400) K/uL MPV 8.7 (7.4-10.4) fL Immature Gran % (Auto) 0.3 % Neut % (Auto) 71.1 % Lymph % (Auto) 17.4 % [place] % (Auto) 8.4 % Eos % (Auto) 2.2 % Baso % (Auto) 0.6 % Immature Gran # (Auto) 0.01 (0.00-0.02) K/uL Neut # (Auto) 2.28 (1.4-6.5) K/uL Lymph # (Auto) 0.56 L (1.2-3.4) K/uL [place] # (Auto) 0.27 (0.11-0.59) K/uL Eos # (Auto) 0.07 (0-0.5) K/uL Baso # (Auto) 0.02 (0-0.2) K/uL Sodium (136-145) mmol/L Potassium (3.5-5.1) mmol/L Chloride (98-107) mmol/L Carbon Dioxide (21-32) mmol/L Anion Gap (3-11) BUN (7-18) mg/dl Creatinine (0.6-1.4) mg/dl Est Cr Clr Drug Dosing ml/min Est GFR ( Amer) Est GFR (Non-Af Amer) BUN/Creatinine Ratio (10-20) Glucose (70-99) mg/dl Estimat Average Glucose 131 mg/dl Hemoglobin A1c 6.2 H (4.5-5.6) % Calcium (8.5-10.1) mg/dl Vitamin B12 541 (211-911) pg/ml Nasal Screen MRSA (PCR) (Negative) 05/31/19 05/30/19 Range/Units 06:09 14:55 WBC (4.8-10.8) K/uL RBC (4.7-6.1) M/uL Hgb (14.0-18.0) g/dL Hct (42-52) % MCV (80-100) fL MCH (25-34) pg MCHC (32-36) g/dL RDW Std Deviation (36.4-46.3) fL RDW Coeff of [place] (11.5-14.5) % Plt Count (130-400) K/uL MPV (7.4-10.4) fL Immature Gran % (Auto) % Neut % (Auto) % Lymph % (Auto) % [place] % (Auto) % Eos % (Auto) % Baso % (Auto) % Immature Gran # (Auto) (0.00-0.02) K/uL Neut # (Auto) (1.4-6.5) K/uL Lymph # (Auto) (1.2-3.4) K/uL [place] # (Auto) (0.11-0.59) K/uL Eos # (Auto) (0-0.5) K/uL Baso # (Auto) (0-0.2) K/uL Sodium 138 (136-145) mmol/L Potassium 3.9 (3.5-5.1) mmol/L Chloride 107 (98-107) mmol/L Carbon Dioxide 25 (21-32) mmol/L Anion Gap 5.0 (3-11) BUN 15 (7-18) mg/dl Creatinine 1.09 (0.6-1.4) mg/dl Est Cr Clr Drug Dosing 117.8 ml/min Est GFR ( Amer) 85.1 Est GFR (Non-Af Amer) 73.4 BUN/Creatinine Ratio 13.5 (10-20) Glucose 107 H (70-99) mg/dl Estimat Average Glucose mg/dl Hemoglobin A1c (4.5-5.6) % Calcium 8.4 L (8.5-10.1) mg/dl Vitamin B12 (211-911) pg/ml Nasal Screen MRSA (PCR) Negative (Negative) PG Care Time/CCT Total # of Minutes Spent Total Time Spent with Patient: Total time spent is greater than 50% in coordination of care (as documented) at patient's floor/unit and/or counseling patient: (1) CAD (coronary artery disease) Associated angina: with other forms of angina Coronary Disease-Associated Artery/Lesion type: [place] artery [place] vs. transplanted heart: [place] heart Qualified Code(s): I25.118 - Atherosclerotic heart disease of [place] coronary artery with other forms of angina pectoris
[2019-05-31] MEDS: GABAPENTIN 100 MG CAP PO SCH (20:59)
[2019-05-31] MEDS: ATORVASTATIN 40 MG TAB PO SCH (20:59)
[2019-05-31] MEDS: ENOXAPARIN INJ 40 MG/0.4 ML SYR SQ SCH (21:00)
[2019-06-01] MEDS: KETOROLAC 30 MG/ML VIAL IV PRN ×4 (00:02→23:17)
[2019-06-01] MEDS: PIPERACILLIN/TAZOBACTAM 4.5 GM in DEXTROSE 5% 100 ML IV SCH ×3 (01:45→17:39)
[2019-06-01] MEDS: OXYCODONE HCL IR 5 MG TAB (IMMEDIATE RELEASE) PO PRN ×3 (05:24→20:18)
[2019-06-01 06:53] LABS: Hemoglobin 12.8 g/dL (14.0-18.0); Mean Corpuscular Hemoglobin 30.3 pg (25-34); Mean Corpuscular Hgb Conc 33.7 g/dL (32-36); Mean Platelet Volume 8.5 fL (7.4-10.4); Platelet Count 184 K/uL (130-400); RDW Coefficient of Variation 14.1 % (11.5-14.5); RDW Standard Deviation 46.5 fL (36.4-46.3); Red Blood Count 4.22 M/uL (4.7-6.1); White Blood Count 3.42 K/uL (4.8-10.8)
[2019-06-01 07:25] LABS: Albumin Level 2.8 gm/dl (3.4-5.0); BUN Creatinine Ratio 13.5 (10-20); Creatinine Clr Calc Pharmacy 101.9 ml/min; Est GFR (African American) 71.4; Est GFR (Non-African American) 61.6; Potassium 3.7 mmol/L (3.5-5.1)
[2019-06-01 07:27] LABS: Albumin Globulin Ratio 0.8 (0.9-2); Globulin 3.6 gm/dl (2.5-4.0); Total Protein 6.4 gm/dl (6.4-8.2)
[2019-06-01] MEDS: FUROSEMIDE 40 MG TAB PO SCH (09:29)
[2019-06-01] MEDS: ISOSORBIDE MONO EXTENDED REL 60 MG TABCR PO SCH (09:30)
[2019-06-01] MEDS: METOPROLOL SUCC 50MG EXT REL TAB PO SCH ×2 (09:30→20:20)
[2019-06-01] MEDS: GABAPENTIN 100 MG CAP PO SCH ×3 (09:30→20:21)
[2019-06-01] MEDS: ASPIRIN 81 MG ECTAB PO SCH (09:31)
[2019-06-01] MEDS: TOPIRAMATE 50 MG TAB PO SCH ×2 (09:31→20:21)
[2019-06-01] MEDS: LOSARTAN POTASSIUM 50 MG TAB PO SCH (09:31)
[2019-06-01] MEDS: CLOPIDOGREL BISULFATE 75 MG TAB PO SCH (09:31)
[2019-06-01] MEDS: FAMOTIDINE 20 MG TAB PO SCH ×2 (09:31→20:21)
[2019-06-01] MEDS: TRIAMCINOLONE ACET 0.1% OINT 15 GM TUBE EXT SCH ×2 (09:32→20:19)
--- NOTE | 2019-06-01 14:03 | Hospitalist Progress Note ---
Date of Service June 01, 2019 Assessment & Plan (1) Cellulitis of left lower leg: * Improving-- pain/erythema intially without significant improvement despite IV rocephin/vanco and was switched to IV Zosyn (MRSA swab negative) with improvement of erythema/swelling, but not pain -- possible transition to keflex/cipro tomorrow if continued improvement. * Elevate left leg while in bed -- stressed importance to decrease swelling * Pain control- oxycodone and Toradol. Continued pain likely to be at least partially neuropathic -- gabapentin 100mg daily added 05/30 --> increased to 200mg TID dosing with minimal improvement * U/S venous doppler LLE performed on 05/16/19 and repeated on 05/28 which were both negative for DVT, although patient does have superficial nonocclusive thrombus of L greater saphenous v * Uric acid collected today for possible gout -- wnl at 5.3 * X-ray 3 view LEFT ANKLE -- soft tissue prominence in region of distal Achilles tendon suggesting associated tendinosis * Will give prednisone 20mg this afternoon * Consult ortho in AM if no improvement in pain for possible injection? (2) Acute stasis dermatitis of left lower extremity: * Continue triamcinolone oint 0.1% apply to left leg BID (3) CAD (coronary artery disease): * Continue aspirin 81mg, Plavix 75mg, isosorbide, metoprolol 50mg BID, prn NTG. * Continue atorvastatin 40mg (4) Essential hypertension: * Continue losartan 50mg and Lasix 40mg daily * Blood pressure was elevated at times since admission, may be pain associated - control pain, hydralazine if necessary * Currently stable, 115/64 (5) Morbid obesity with BMI of 50.0-59.9, adult: * Heart healthy diet * Denies history of sleep apnea -- states he was tested, but told he does not have * Patient reports using Topamax for this diagnosis for weight loss (6) Pre-diabetes: * A1c 5.9% in April 2018, although patient unaware of ever hearing about this * Repeat A1c at 6.2-- counselled on what this means, diet/exercise, contributing to slow healing, neuropathic type pain associated with complications of DM -- will need close follow up outpatient, possible initiation of metformin * B12 wnl at 541 (7) DVT prophylaxis: * Lovenox 40mg SQ daily while inpatient Dispo: hopeful transition to oral abx and discharge tomorrow Supervising Physician Co-Signing Physician Notes PA Supervision Note: I personally saw and examined the patient. I verified all gay points and agree with JOEY Jefferson with the following exceptions and/or additions: Patient seen and continues to complain of burning pain in the medial left ankle and swelling. No fevers chills or sweats. Otherwise doing well. He reports no trauma or rolling of the ankle. Vitals reviewed Gen: AAOx3, NAD, obese HEENT: Anicteric sclerae, EOMI CV: RRR no mgr nl S1S2 Pulm: CTAB no wcr Ext: Left medial ankle with edema localized, also with edema generalized in the ankle and distal leg with mild erythema to the mid tibia,, exquisite tenderness to palpation over left medial ankle anteriorly, 2+ DP pulses early Skin: Erythema of left leg as above, warm/dry Neuro: Full strength throughout 59-year-old male with history as above, here with left ankle and leg cellulitis, persistent pain and swelling left medial ankle Check MRI to rule out fluid collection or joint effusion -Consult orthopedics in the morning if significant abnormalities on MRI -Continue IV antibiotics as above Subjective When asked how patient is doing today, he continues to state "terrible". Although appearing more comfortable in bed, patient states he is continuing to have burning pain in his left leg, primarily left medial ankle region, rated 5/10. He states it is painful to walk on. He continues to state that the PO pain medication does nothing for his pain, and the toradol IV seems to be the only thing that helps. He is unable to again state if the gabapentin is helping at all. He denies any previous history of gout. He states the same thing happened to his right leg approximately two years ago and it took 6-8 months to heal with a topical steroid. States he did have some minimal abdominal pain across his mid abdominal region that was improved with sully crackers and alexis marilee. Denies any back pain, urinary symptoms, history of kidney stones or recurrent of abdominal pain. Denies fevers, chills, shortness of breath, chest pain, n/v/c, headache or blurred vision. Review of Systems Review of Systems: All systems reviewed & are unremarkable except as noted in HPI & below Physical Exam Constitutional: WD/WN, vitals as above + obese; no acute distress Eyes: + anicteric sclerae and PERRL Neck: trachea midline, no thyromegaly Respiratory: normal respiratory effort, lungs clear to auscultation Cardiovascular: Rate/Rhythm: regular rate and regular rhythm Heart Sounds: normal S1 and normal S2; no murmur Vessels: no JVD Extremities: + edema (1+ BLE) 2+ dp, pt pulses bilaterally sensation to light touch intact Gastrointestinal (Abdomen): normal bowel sounds, soft, nontender, no hepatosplenomegaly Musculoskeletal: Full ROM, but with pain Skin: improved -- erythema and warmth medial aspect left ankle with spread to mid silva and posterior calf, no longer any erythema of upper thigh. tender to palpation, specifically over medial left ankle Results & Data Vital Signs (Past 12 Hours) Vital Signs Temp Pulse Pulse Resp BP Pulse Ox 06/01/19 09:27 63 115/64 06/01/19 07:26 36.7 C 57 L 18 131/73 97 Laboratory Results 06/01/19 06/01/19 06/01/19 Range/Units 06:43 06:43 06:43 WBC 3.42 L (4.8-10.8) K/uL RBC 4.22 L (4.7-6.1) M/uL Hgb 12.8 L (14.0-18.0) g/dL Hct 38.0 L (42-52) % MCV 90.0 (80-100) fL MCH 30.3 (25-34) pg MCHC 33.7 (32-36) g/dL RDW Std Deviation 46.5 H (36.4-46.3) fL RDW Coeff of [place] 14.1 (11.5-14.5) % Plt Count 184 (130-400) K/uL MPV 8.5 (7.4-10.4) fL Sodium 135 L (136-145) mmol/L Potassium 3.7 (3.5-5.1) mmol/L Chloride 104 (98-107) mmol/L Carbon Dioxide 28 (21-32) mmol/L Anion Gap 3.0 (3-11) BUN 17 (7-18) mg/dl Creatinine 1.26 (0.6-1.4) mg/dl Est Cr Clr Drug Dosing 101.9 ml/min Est GFR ( Amer) 71.4 Est GFR (Non-Af Amer) 61.6 BUN/Creatinine Ratio 13.5 (10-20) Glucose 99 (70-99) mg/dl Uric Acid 5.3 (2.6-7.2) mg/dl Calcium 8.0 L (8.5-10.1) mg/dl Total Bilirubin 1.0 (0.2-1) mg/dl AST 21 (15-37) U/L ALT 28 (12-78) U/L Alkaline Phosphatase 78 (45-117) U/L Total Protein 6.4 (6.4-8.2) gm/dl Albumin 2.8 L (3.4-5.0) gm/dl Globulin 3.6 (2.5-4.0) gm/dl Albumin/Globulin Ratio 0.8 L (0.9-2) Diagnostic Findings XR ankle LT min 3V routine HISTORY: 59 years-old Male left ankle pain, erythema acute left ankle pain with soft tissue swelling COMPARISON: Left ankle radiographs 07/07/2016 TECHNIQUE: 3 views of the left ankle FINDINGS: Soft tissue calcifications of the lower leg are redemonstrated both medially and laterally. Mild diffuse soft tissue swelling. Mild tibiotalar and hindfoot osteoarthritis with large marginal spurring of the calcaneus. Soft tissue thickening within the region of the distal Achilles tendon. No acute fracture, dislocation or osteochondral defect. IMPRESSION: 1. No acute fracture or dislocation. 2. Degenerative changes above with prominent spurring of the calcaneus. 3. Soft tissue prominence in the region of the distal Achilles tendon suggests associated tendinosis. PG Care Time/CCT Total # of Minutes Spent Total Time Spent with Patient: Total time spent is greater than 50% in coordinat ion of care (as documented) at patient's floor/unit and/or counseling patient: (1) CAD (coronary artery disease) Associated angina: with other forms of angina Coronary Disease-Associated Artery/Lesion type: [place] artery [place] vs. transplanted heart: [place] heart Qualified Code(s): I25.118 - Atherosclerotic heart disease of [place] coronary artery with other forms of angina pectoris
--- NOTE | 2019-06-01 15:07 | XRay Report ---
XR ankle LT min 3V routine HISTORY: 59 years-old Male left ankle pain, erythema acute left ankle pain with soft tissue swelling COMPARISON: Left ankle radiographs 07/07/2016 TECHNIQUE: 3 views of the left ankle FINDINGS: Soft tissue calcifications of the lower leg are redemonstrated both medially and laterally. Mild diff use soft tissue swelling. Mild tibiotalar and hindfoot osteoarthritis with large marginal spurring of the calcaneus. Soft tissue thickening within the region of the distal Achilles tendon. No acute frac ture, dislocation or osteochondral defect. IMPRESSION: 1. No acute fracture or dislocation. 2. Degenerative changes above with prominent spurring of the calcaneus. 3. Soft tissue prominence in the region of the distal Achilles tendon suggests associated tendinosis. ACT 112: Negative or not required by law. The above report was generated using voice recognition software. It may contain grammatical, syntax o r spelling errors. Electronically signed by: Iglesia Nair M.D. 06/01/2019 3:05 PM
[2019-06-01] MEDS ORDERED: predniSONE 20 MG TAB PO STA (16:40)
[2019-06-01] MEDS: ATORVASTATIN 40 MG TAB PO SCH (20:20)
[2019-06-01] MEDS: ENOXAPARIN INJ 40 MG/0.4 ML SYR SQ SCH (20:21)
[2019-06-02] MEDS: OXYCODONE HCL IR 5 MG TAB (IMMEDIATE RELEASE) PO PRN ×2 (00:37→10:09)
[2019-06-02] MEDS: PIPERACILLIN/TAZOBACTAM 4.5 GM in DEXTROSE 5% 100 ML IV SCH ×3 (02:12→17:25)
[2019-06-02] MEDS ORDERED: OXYCODONE HCL IR 5 MG TAB (IMMEDIATE RELEASE) PO STA (02:22)
[2019-06-02] MEDS: ACETAMINOPHEN 500 MG TAB PO PRN ×2 (02:29→18:56)
[2019-06-02] MEDS: KETOROLAC 30 MG/ML VIAL IV PRN ×2 (06:23→15:27)
[2019-06-02 07:05] LABS: BUN Creatinine Ratio 16.9 (10-20); Calcium 8.6 mg/dl (8.5-10.1); Creatinine Clr Calc Pharmacy 118.9 ml/min; Est GFR (Non-African American) 74.2; Potassium 4.4 mmol/L (3.5-5.1)
--- NOTE | 2019-06-02 07:26 | Magnetic Resonance Report ---
MR ankle LT wo con HISTORY: left ankle pain/swelling, medial TECHNIQUE: Multiplanar multisequence MRI of the left ankle was performed without the use of intraveno us contrast. COMPARISON STUDY: Left ankle radiograph 06/01/2019. FINDINGS: There is diffuse subcutaneous edema throughout the ankle and dorsum of the foot. Plantar an d posterior calcaneal spurs. Mild edema at the posterior calcaneal spur. There is thickening and incr eased signal at the distal attachment of the Achilles tendon consistent with a mild tendinosis. There is a split tear at the peroneus brevis tendon. There is also thickening and abnormal signal within t he distal anterior tibialis tendon consistent with a partial tear/tendinopathy. Mild cartilage thinni ng within the tibiotalar joint. There is thickening and increased signal within the occipital plantar fascia consistent with a mild plantar fasciitis. The sinus tarsi is intact. Partial fatty atrophy of the muscles within the foot. The medial and lateral stabilizing ligaments are intact. IMPRESSION: 1. Partial tear/tendinopathy of the anterior tibialis tendon. 2. Split tear at the proximal peroneus brevis tendon. 3. Mild distal Achilles tendinosis. 4. Mild plantar fasciitis. 5. Diffuse subcutaneous edema throughout the ankle and dorsum of the foot. 6. No fracture or dislocation within the ankle. 7. Partial fatty atrophy of the muscles of the foot. ACT 112: Negative or not required by law. Electronically signed by: Cesario Clark M.D. 06/02/2019 7:25 AM
[2019-06-02] MEDS: TOPIRAMATE 50 MG TAB PO SCH ×2 (08:17→20:31)
[2019-06-02] MEDS: METOPROLOL SUCC 50MG EXT REL TAB PO SCH ×2 (08:18→20:35)
[2019-06-02] MEDS: FAMOTIDINE 20 MG TAB PO SCH ×2 (08:18→20:30)
[2019-06-02] MEDS: ASPIRIN 81 MG ECTAB PO SCH (08:18)
[2019-06-02] MEDS: GABAPENTIN 100 MG CAP PO SCH ×3 (08:18→20:29)
[2019-06-02] MEDS: CLOPIDOGREL BISULFATE 75 MG TAB PO SCH (08:18)
[2019-06-02] MEDS: ISOSORBIDE MONO EXTENDED REL 60 MG TABCR PO SCH (08:18)
[2019-06-02] MEDS: LOSARTAN POTASSIUM 50 MG TAB PO SCH (08:18)
[2019-06-02] MEDS: FUROSEMIDE 40 MG TAB PO SCH (08:19)
[2019-06-02] MEDS: TRIAMCINOLONE ACET 0.1% OINT 15 GM TUBE EXT SCH ×2 (08:19→20:31)
--- NOTE | 2019-06-02 11:47 | Hospitalist Progress Note ---
Date of Service June 02, 2019 Assessment & Plan (1) Cellulitis of left lower leg: * Improving-- pain/erythema initially without significant improvement despite IV rocephin/vanco and was switched to IV Zosyn (MRSA swab negative) with improvement of erythema/swelling, but not pain improvement-- likely secondary to MRI findings as below * Elevate left leg while in bed -- stressed importance to decrease swelling * Pain control- oxycodone and Toradol, gabapentin. Will d/c oxycodone and give 0.5mg IV Dilaudid Q6prn severe pain. One time dose given this afternoon * U/S venous doppler LLE performed on 05/16/19 and repeated on 05/28 which were both negative for DVT, although patient does have superficial nonocclusive thrombus of L greater saphenous v * Uric acid wnl at 5.3 * X-ray 3 view LEFT ANKLE 06/02 -- soft tissue prominence in region of distal Achilles tendon suggesting associated tendinosis. Given 20mg prednisone, no improvement * MRI last evening with evidence of partial tear anterior tibialis tendon, split tear at proximal peroneus brevis tendon, mild distal Achilles tendinosis, mild plantar fascitis, diffuse subcu edema, no evidence for effusion or fracture/dislocation-- continues to deny any trauma * Ortho consult today --appreciate assistance (2) Acute stasis dermatitis of left lower extremity: * Continue triamcinolone oint 0.1% apply to left leg BID (3) CAD (coronary artery disease): * Continue aspirin 81mg, Plavix 75mg, isosorbide, metoprolol 50mg BID, prn NTG. * Continue atorvastatin 40mg (4) Essential hypertension: * Continue losartan 50mg and Lasix 40mg daily * Blood pressure was elevated at times since admission, may be pain associated - control pain, hydralazine if necessary * Currently stable, 122/71 (5) Morbid obesity with BMI of 50.0-59.9, adult: * Heart healthy diet * Denies history of sleep apnea -- states he was tested, but told he does not have * Patient reports using Topamax for this diagnosis for weight loss (6) Pre-diabetes: * A1c 5.9% in April 2018, although patient unaware of ever hearing about this * Repeat A1c at 6.2-- counselled on what this means, diet/exercise, likely contributing to slow healing -- will need close follow up outpatient, possible initiation of metformin * B12 wnl at 541 (7) DVT prophylaxis: * Lovenox 40mg SQ daily while inpatient Dispo: Ortho consult today, need to convert to PO abx, pain control -- await ortho input Supervising Physician Co-Signing Physician Notes PA Supervision Note: I did not personally see or examine the patient today, but I verified all gay points of JOEY Jefferson's assessment and plan with the following exceptions/additions: None Subjective Patient evaluated this morning. Patient with continued pain to left leg/ankle. Reviewed x-ray/MRI results with patient. Patient agreeable to orthopedic evaluation, but understands they may want to wait until cellulitis resolved. Pain worsened last evening after MRI scan. Patient states extreme pain to left ankle with ambulation. States toradol minimally effective, but only short term. Patient continues to deny any trauma or injury to affected leg, any twisting injury or other. 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 Denies any fevers, chills, radiation of symptoms, back pain, difficulty urinating, pain with urination, discharge, abdominal pain, nausea or vomiting. Review of Systems Review of Systems: All systems reviewed & are unremarkable except as noted in HPI & below Constitutional: no fever and no chills Eyes: no diplopia and no problem reported Ear, Nose, Mouth, Throat: no sore throat and no dysphagia Respiratory: no cough and no dyspnea Cardiovascular: + edema; no chest pain and no palpitations Gastrointestinal: no abdominal pain, no nausea and no vomiting Genitourinary: no dysuria, no hematuria and no penile discharge Musculoskeletal: + joint pain (left ankle); no back pain left leg pain Integumentary: no new rashes/lesions Neurologic: no numbness and no paresthesia "burning"- left leg/ankle Physical Exam Constitutional: WD/WN, vitals as above + obese uncomfortable appearing Eyes: + anicteric sclerae and PERRL Neck: trachea midline, no thyromegaly Respiratory: normal respiratory effort, lungs clear to auscultation Cardiovascular: Rate/Rhythm: regular rate and regular rhythm Heart Sounds: normal S1 and normal S2 + edema (1+ BLE) 2+ dp, pt pulses bilaterally sensation to light touch intact Gastrointestinal (Abdomen): normal bowel sounds, soft, nontender, no hepatosplenomegaly Musculoskeletal: Head/Neck/Chest: normocephalic and head atraumatic Ankle: + ankle abnormal to inspection, + skin erythema and + ecchymosis Full ROM, however pain with passive ROM L ankle Skin: Left medial ankle edema/ecchymosis dorsal aspect Erythema/warmth spread to mid tibial region/posterior calf from medial aspect. Tender to palpation across dorsum of left foot as well as increased tenderness to medial aspect of ankle joint Neurologic: deep tendon reflexes 2+ bilaterally, moves all extremities and awake Psychiatric: Orientation: alert and oriented x 3 Lymphatic: no cervical or axillary lymphadenopathy Results & Data Vital Signs (Past 12 Hours) Vital Signs Temp Pulse Resp BP Pulse Ox 06/02/19 07:35 36.5 C 52 L 18 122/71 97 Laboratory Results 06/02/19 Range/Units 05:54 Sodium 134 L (136-145) mmol/L Potassium 4.4 D (3.5-5.1) mmol/L Chloride 105 (98-107) mmol/L Carbon Dioxide 25 (21-32) mmol/L Anion Gap 4.0 (3-11) BUN 18 (7-18) mg/dl Creatinine 1.08 (0.6-1.4) mg/dl Est Cr Clr Drug Dosing 118.9 ml/min Est GFR ( Amer) 86.0 Est GFR (Non-Af Amer) 74.2 BUN/Creatinine Ratio 16.9 (10-20) Glucose 179 H (70-99) mg/dl Calcium 8.6 (8.5-10.1) mg/dl Diagnostic Findings MR ankle LT wo con HISTORY: left ankle pain/swelling, medial TECHNIQUE: Multiplanar multisequence MRI of the left ankle was performed without the use of intravenous contrast. COMPARISON STUDY: Left ankle radiograph 06/01/2019. FINDINGS: There is diffuse subcutaneous edema throughout the ankle and dorsum of the foot. Plantar and posterior calcaneal spurs. Mild edema at the posterior calcaneal spur. There is thickening and increased signal at the distal attachment of the Achilles tendon consistent with a mild tendinosis. There is a split tear at the peroneus brevis tendon. There is also thickening and abnormal signal within the distal anterior tibialis tendon consistent with a partial tear/tendinopathy. Mild cartilage thinning within the tibiotalar joint. There is thickening and increased signal within the occipital plantar fascia consistent with a mild plantar fasciitis. The sinus tarsi is intact. Partial fatty atrophy of the muscles within the foot. The medial and lateral stabilizing ligaments are intact. IMPRESSION: 1. Partial tear/tendinopathy of the anterior tibialis tendon. 2. Split tear at the proximal peroneus brevis tendon. 3. Mild distal Achilles tendinosis. 4. Mild plantar fasciitis. 5. Diffuse subcutaneous edema throughout the ankle and dorsum of the foot. 6. No fracture or dislocation within the ankle. 7. Partial fatty atrophy of the muscles of the foot. PG Care Time/CCT Total # of Minutes Spent Total Time Spent with Patient: Total time spent is greater than 50% in coordination of care (as documented) at patient's floor/unit and/or counseling patient: (1) CAD (coronary artery disease) Associated angina: with other forms of angina Coronary Disease-Associated Artery/Lesion type: [place] artery [place] vs. transplanted heart: [place] heart Qualified Code(s): I25.118 - Atherosclerotic heart disease of [place] coronary artery with other forms of angina pectoris
[2019-06-02] MEDS: POLYETHYLENE (MIRALAX) 17 GM PACK PO SCH (12:23)
[2019-06-02] MEDS ORDERED: bisacodyL 5 MG TABEC PO ONE (12:30)
[2019-06-02] MEDS ORDERED: HYDROmorphone INJ 0.5 MG/0.5 ML SYR IV STA (17:00)
[2019-06-02] MEDS ORDERED: HYDROmorphone INJ 0.5 MG/0.5 ML SYR IV PRN (17:22)
--- NOTE | 2019-06-02 18:19 | Orthopedic Consultation ---
Date of Consultation June 02, 2019 Assessment & Plan (1) Cellulitis of left lower leg: The patient has had significant course of antibiotic therapy for cellulitis of the lower extremity. To be continued to have ankle pain and an MRI was obtained. There is no fluid collection seen. There is no joint effusion seen. There is nothing that I would say would require surgical drainage. There is a lot of degenerative findings on his MRI. I do not feel that any the findings on the MRI represent anything acute but more degenerative in nature. Recommend continuing with antibiotic therapy. He may be weightbearing as tolerated. Contact us if he has any worsening symptoms. History of Present Illness Reason for Consultation: Left leg cellulitis Attending Physician: Farideh Guzman MD History of Present Illness Patient is a 59-year-old male who has had a prolonged course of cellulitis in the left lower extremity. He has presented to the emergency room several occasions over the last 2 and half weeks with continued cellulitis. He is been admitted for IV antibiotics. He has had persistent pain in the left ankle. Denies trauma. Locates his pain globally throughout the the leg. Allergies Allergy/AdvReac Type Severity Reaction Status Date / Time latex Allergy Mild RASH Unverified 05/28/19 11:39 Home Medications Home Medications Medication Instructions Recorded Confirmed Type aspirin [Aspirin Low Dose] 81 mg PO QAM 04/26/18 05/28/19 History atorvastatin 40 mg PO HS 04/26/18 05/28/19 History clopidogrel [Plavix] 75 mg PO QAM 04/26/18 05/28/19 History metoprolol succinate 50 mg PO BID 04/26/18 05/28/19 History losartan 50 mg PO QAM 12/01/18 05/28/19 History nitroglycerin 0.4 mg SUBLINGUAL Q5M PRN #6 tab 12/02/18 05/28/19 Rx amoxicillin-pot clavulanate 1 tab PO Q12H #20 tab 05/16/19 05/28/19 Rx [Augmentin] isosorbide mononitrate 60 mg PO QAM 05/16/19 05/28/19 History furosemide [Lasix] 20 mg PO DAILY 05/20/19 05/28/19 History furosemide [Lasix] 40 mg PO DAILY 05/20/19 05/28/19 History hydrocodone-acetaminophen [[place]] 1 - 2 tab PO Q6H PRN #20 tab 05/20/19 05/28/19 Rx topiramate [Topamax] 50 mg PO BID 05/20/19 05/28/19 History Patient History Medical History Acute bronchitis (Acute) CAD (coronary artery disease) Chronic cough Essential hypertension Heart attack Hyperlipidemia Hypertension Morbid obesity with BMI of 50.0-59.9, adult Nonsustained ventricular tachycardia Obesity Pre-diabetes Surgical History H/O heart artery stent Family History Unknown Stroke Aortic aneurysm Diabetes Social History Preferred Language: Croatian Communication Ability: Effective 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 Beliefs That Will Affect Care: None marital status: Current Living Situation: Spouse Other Information That Helps Us Care for You: No Feels Safe at Home: Yes Safety Concerns: Feels Safe At This Time Smoking Status: Former smoker Tobacco Type: smokeless tobacco ; Do You Dip or Chew Tobacco: Yes (1/2 can a day) ; Second Hand Exposure: No ; Tobacco Cessation Education Requested by Patient: No Hx Alcohol Use: No Hx Substance Use: No Physical Exam Constitutional: WD/WN, vitals as above Neck: normal visual inspection Respiratory: normal respiratory effort Cardiovascular: Rate/Rhythm: regular rate Musculoskeletal: Left lower extremity: Patient is morbidly obese. 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 He is tender anteriorly, medially, laterally, posteriorly in the calf as well as down to the ankle. He has some mild pain with passive motion of the ankle. No fluctuance is appreciated. No significant erythema around the ankle joint itself. Results & Data Vital Signs (Past 12 Hours) Vital Signs Temp Pulse Pulse Resp BP Pulse Ox 06/02/19 15:06 36.4 C L 58 L 20 119/69 97 06/02/19 07:35 36.5 C 52 L 18 122/71 97
[2019-06-02] MEDS: ENOXAPARIN INJ 40 MG/0.4 ML SYR SQ SCH (20:30)
[2019-06-02] MEDS: ATORVASTATIN 40 MG TAB PO SCH (20:31)
[2019-06-03] MEDS: PIPERACILLIN/TAZOBACTAM 4.5 GM in DEXTROSE 5% 100 ML IV SCH ×3 (02:33→18:20)
[2019-06-03] MEDS: ACETAMINOPHEN 500 MG TAB PO PRN ×2 (02:33→15:56)
[2019-06-03 06:43] LABS: Basophils # (auto) 0.01 K/uL (0-0.2); Basophils % (auto) 0.2 %; Eosinophils # (auto) 0.28 K/uL (0-0.5); Eosinophils % (auto) 6.5 %; Hematocrit (blood only) 38.1 % (42-52); Hemoglobin 12.9 g/dL (14.0-18.0); Lymphocytes # (auto) 1.06 K/uL (1.2-3.4); Lymphocytes % (auto) 24.5 %; Mean Corpuscular Hemoglobin 30.1 pg (25-34); Mean Corpuscular Hgb Conc 33.9 g/dL (32-36); Mean Platelet Volume 9.3 fL (7.4-10.4); Monocytes # (auto) 0.43 K/uL (0.11-0.59); Neutrophils # (auto) 2.54 K/uL (1.4-6.5); Neutrophils % (auto) 58.8 %; Platelet Count 214 K/uL (130-400); RDW Coefficient of Variation 14.1 % (11.5-14.5); RDW Standard Deviation 45.9 fL (36.4-46.3); Red Blood Count 4.28 M/uL (4.7-6.1); White Blood Count 4.32 K/uL (4.8-10.8)
[2019-06-03 07:17] LABS: BUN Creatinine Ratio 17.2 (10-20); Calcium 8.3 mg/dl (8.5-10.1); Creatinine Clr Calc Pharmacy 110.7 ml/min; Est GFR (African American) 78.9; Est GFR (Non-African American) 68.1; Potassium 4.1 mmol/L (3.5-5.1)
[2019-06-03 07:18] LABS: C Reactive Protein 3.27 mg/dl (0-0.29)
[2019-06-03] MEDS: POLYETHYLENE (MIRALAX) 17 GM PACK PO SCH (08:58)
[2019-06-03] MEDS: METOPROLOL SUCC 50MG EXT REL TAB PO SCH ×2 (08:58→21:01)
[2019-06-03] MEDS: GABAPENTIN 100 MG CAP PO SCH ×3 (08:59→21:01)
[2019-06-03] MEDS: FUROSEMIDE 40 MG TAB PO SCH (08:59)
[2019-06-03] MEDS: ASPIRIN 81 MG ECTAB PO SCH (08:59)
[2019-06-03] MEDS: FAMOTIDINE 20 MG TAB PO SCH ×2 (08:59→21:01)
[2019-06-03] MEDS: TOPIRAMATE 50 MG TAB PO SCH ×2 (08:59→21:01)
[2019-06-03] MEDS: TRIAMCINOLONE ACET 0.1% OINT 15 GM TUBE EXT SCH ×2 (09:00→21:04)
[2019-06-03] MEDS: CLOPIDOGREL BISULFATE 75 MG TAB PO SCH (09:00)
[2019-06-03] MEDS: ISOSORBIDE MONO EXTENDED REL 60 MG TABCR PO SCH (09:00)
[2019-06-03] MEDS: LOSARTAN POTASSIUM 50 MG TAB PO SCH (09:00)
[2019-06-03] MEDS ORDERED: OXYCODONE HCL IR 5 MG TAB (IMMEDIATE RELEASE) PO STA (11:00)
--- NOTE | 2019-06-03 17:31 | Hospitalist Progress Note ---
Date of Service June 03, 2019 Assessment & Plan (1) Cellulitis of left lower leg: * Improving-- pain/erythema initially without significant improvement despite IV rocephin/vanco and was switched to IV Zosyn (MRSA swab negative) with improvement of erythema/swelling, but not pain improvement-- likely secondary to MRI findings as below * Elevate left leg while in bed -- stressed importance to decrease swelling * Pain control- oxycodone and Toradol, gabapentin. Use opioids sparingly. Dilau did discontinued, will give 5mg juan c as needed for now -- will need tapered. No bowel regimen at this time as patient with multiple bowel movements today. Monitor * U/S venous doppler LLE performed on 05/16/19 and repeated on 05/28 which were both negative for DVT, although patient does have superficial nonocclusive thrombus of L greater saphenous v * Uric acid wnl at 5.3 * X-ray 3 view LEFT ANKLE 06/02 -- soft tissue prominence in region of distal Achilles tendon suggesting associated tendinosis. Given 20mg prednisone, no improvement * MRI last evening with evidence of partial tear anterior tibialis tendon, split tear at proximal peroneus brevis tendon, mild distal Achilles tendinosis, mild plantar fascitis, diffuse subcu edema, no evidence for effusion or fracture/dislocation-- continues to deny any trauma * Ortho consult -- no intervention at this time -- will set patient up with ortho as outpatient to re-evaluate once cellulitis resolved if patient with continued pain * Will continue IV abx at this time and discharge patient with oral abx, although will avoid fluoroquinolones due to tendinopathy on imaging as above (2) Acute stasis dermatitis of left lower extremity: * Continue triamcinolone oint 0.1% apply to left leg BID (3) CAD (coronary artery disease): * Continue aspirin 81mg, Plavix 75mg, isosorbide, metoprolol 50mg BID, prn NTG. * Continue atorvastatin 40mg (4) Essential hypertension: * Stable * Continue losartan 50mg and Lasix 40mg daily * Monitor (5) Morbid obesity with BMI of 50.0-59.9, adult: * Heart healthy diet * Denies history of sleep apnea -- states he was tested, but told he does not have * Patient reports using Topamax for this diagnosis for weight loss (6) Pre-diabetes: * A1c 5.9% in April 2018, although patient unaware of ever hearing abo ut this * Repeat A1c at 6.2-- counselled on what this means, diet/exercise, likely contributing to slow healing -- will need close follow up outpatient, possible initiation of metformin * B12 wnl at 541 (7) Diastolic CHF, chronic: * Most recent ECHO 12/01/18 with grade II diastolic dysfunction. Systolic function normal. Mild LVH. No wma * Continue home lasix, lisinopril, metoprolol as above (8) DVT prophylaxis: * Lovenox 40mg SQ daily while inpatient Dispo: hopeful d/c in AM Supervising Physician Co-Signing Physician Notes PA Supervision Note: I did not personally see or examine the patient today, but I verified all gay points of JOEY Jefferson's assessment and plan with the following exceptions/additions: Consider adding on warm compresses given the superficial thrombus of the greater saphenous vein-this may also help with pain Subjective Patient continuing to have pain/burning to left leg/ankle. Patient up with PT and walked the hallway without cane/walker. States his pain has been increased since that time. States its "greater than a 5". One time dose of dilaudid yesterday afternoon with improvement of pain, but states "they said I only can have tylenol". Discuss IV vs PO and inability to continue IV pain medications at discharge. Patient demonstrated understanding. Discussed ortho consultation and no intervention at this time. Agreeable to continue abx and if pain persists once infection resolved will follow up with orthopedics as outpatient. Requests appointment be made. Patient expressed that he does not feel ready for discharge currently secondary to pain due to the fact that he is the only person who drives. He states his and daughter do not drive and his son drives truck and is on the road. States he drove himself to the hospital with "20/10 pain" but does not feel safe at this time. Would feel more comfortable tomorrow. Review of Systems Review of Systems: no fever and no chills no diplopia and no problem reported no sore throat and no dysphagia no cough and no dyspnea + edema --moreso in the afternoon while in chair; no chest pain and no palpitations no abdominal pain, no nausea and no vomiting no dysuria, no hematuria and no penile discharge + joint pain (left ankle); no back pain left leg pain no new rashes/lesions no numbness and no paresthesia "burning"- left leg/ankle Physical Exam Constitutional: WD/WN, vitals as above + obese; no acute distress Eyes: + anicteric sclerae and PERRL Neck: trachea midline, no thyromegaly Respiratory: normal respiratory effort, lungs clear to auscultation Cardiovascular: Rate/Rhythm: regular rate and regular rhythm Heart Sounds: normal S1 and normal S2; no murmur Vessels: no JVD Extremities: + edema (1+ BLE) Gastrointestinal (Abdomen): normal bowel sounds, soft, nontender, no hepatosplenomegaly Musculoskeletal: no cyanosis or clubbing, extremities motor strength 5/5 Head/Neck/Chest: normocephalic and head atraumatic Ankle: + ankle abnormal to inspection, + skin erythema and + ecchymosis Skin: left medial ankle edema/ecchymosis dorsal aspect Decreased erythema/warmth to proximal third tibial region/posterior calf from medial aspect. Tender to palpation across dorsum of left foot as well as increased tenderness to medial aspect of ankle joint Neurologic: PERRL, EOMI, accommodation nl, no face palsy, no dysarthria deep tendon reflexes 2+ bilaterally, moves all extremities and awake Psychiatric: Orientation: alert and oriented x 3 Lymphatic: no cervical or axillary lymphadenopathy Results & Data Vital Signs (Past 12 Hours) Vital Signs Temp Pulse Pulse Resp BP Pulse Ox 06/03/19 15:14 36.6 C 78 16 100/62 95 06/03/19 08:56 62 139/79 06/03/19 07:25 36.7 C 51 L 16 117/69 95 Laboratory Results 06/03/19 06/03/19 06/03/19 Range/Units 06:29 06:29 06:29 WBC 4.32 L (4.8-10.8) K/uL RBC 4.28 L (4.7-6.1) M/uL Hgb 12.9 L (14.0-18.0) g/dL Hct 38.1 L (42-52) % MCV 89.0 (80-100) fL MCH 30.1 (25-34) pg MCHC 33.9 (32-36) g/dL RDW Std Deviation 45.9 (36.4-46.3) fL RDW Coeff of [place] 14.1 (11.5-14.5) % Plt Count 214 (130-400) K/uL MPV 9.3 (7.4-10.4) fL Immature Gran % (Auto) 0.0 % Neut % (Auto) 58.8 % Lymph % (Auto) 24.5 % Bay % (Auto) 10.0 % Eos % (Auto) 6.5 % Baso % (Auto) 0.2 % Immature Gran # (Auto) 0.00 (0.00-0.02) K/uL Neut # (Auto) 2.54 (1.4-6.5) K/uL Lymph # (Auto) 1.06 L (1.2-3.4) K/uL [place] # (Auto) 0.43 (0.11-0.59) K/uL Eos # (Auto) 0.28 (0-0.5) K/uL Baso # (Auto) 0.01 (0-0.2) K/uL ESR 39 H (0-14) mm/hr Sodium 137 (136-145) mmol/L Potassium 4.1 (3.5-5.1) mmol/L Chloride 107 (98-107) mmol/L Carbon Dioxide 28 (21-32) mmol/L Anion Gap 2.0 L (3-11) BUN 20 H (7-18) mg/dl Creatinine 1.16 (0.6-1.4) mg/dl Est Cr Clr Drug Dosing 110.7 ml/min Est GFR ( Amer) 78.9 Est GFR (Non-Af Amer) 68.1 BUN/Creatinine Ratio 17.2 (10-20) Glucose 122 H (70-99) mg/dl Calcium 8.3 L (8.5-10.1) mg/dl Total Creatine Kinase (39-308) U/L C-Reactive Protein 3.27 H (0-0.29) mg/dl 06/02/19 06/02/19 Range/Units 16:59 16:59 WBC (4.8-10.8) K/uL RBC (4.7-6.1) M/uL Hgb (14.0-18.0) g/dL Hct (42-52) % MCV (80-100) fL MCH (25-34) pg MCHC (32-36) g/dL RDW Std Deviation (36.4-46.3) fL RDW Coeff of [place] (11.5-14.5) % Plt Count (130-400) K/uL MPV (7.4-10.4) fL Immature Gran % (Auto) % Neut % (Auto) % Lymph % (Auto) % [place] % (Auto) % Eos % (Auto) % Baso % (Auto) % Immature Gran # (Auto) (0.00-0.02) K/uL Neut # (Auto) (1.4-6.5) K/uL Lymph # (Auto) (1.2-3.4) K/uL [place] # (Auto) (0.11-0.59) K/uL Eos # (Auto) (0-0.5) K/uL Baso # (Auto) (0-0.2) K/uL ESR 35 H (0-14) mm/hr Sodium (136-145) mmol/L Potassium (3.5-5.1) mmol/L Chloride (98-107) mmol/L Carbon Dioxide (21-32) mmol/L Anion Gap (3-11) BUN (7-18) mg/dl Creatinine (0.6-1.4) mg/dl Est Cr Clr Drug Dosing ml/min Est GFR ( Amer) Est GFR (Non-Af Amer) BUN/Creatinine Ratio (10-20) Glucose (70-99) mg/dl Calcium (8.5-10.1) mg/dl Total Creatine Kinase 243 (39-308) U/L C-Reactive Protein (0-0.29) mg/dl PG Care Time/CCT Total # of Minutes Spent Total Time Spent with Patient: Total time spent is greater than 50% in coordination of care (as documented) at patient's floor/unit and/or counseling patient: (1) CAD (coronary artery disease) Associated angina: with other forms of angina Coronary Disease-Associated Artery/Lesion type: [place] artery [place] vs. transplanted heart: [place] heart Qualified Code(s): I25.118 - Atherosclerotic heart disease of [place] coronary artery with other forms of angina pectoris
[2019-06-03 19:50] LABS: Lyme Ab IgG w/WB Rflx Negative (Negative); Lyme Ab IgM w/WB Rflx Negative (Negative)
[2019-06-03] MEDS: ATORVASTATIN 40 MG TAB PO SCH (21:01)
[2019-06-03] MEDS: OXYCODONE HCL IR 5 MG TAB (IMMEDIATE RELEASE) PO PRN (21:01)
[2019-06-03] MEDS: ENOXAPARIN INJ 40 MG/0.4 ML SYR SQ SCH (21:02)
[2019-06-04] MEDS: PIPERACILLIN/TAZOBACTAM 4.5 GM in DEXTROSE 5% 100 ML IV SCH ×2 (01:56→10:14)
[2019-06-04 06:51] LABS: BUN Creatinine Ratio 15.9 (10-20); Calcium 8.4 mg/dl (8.5-10.1); Creatinine Clr Calc Pharmacy 127.1 ml/min; Est GFR (African American) 93.3; Est GFR (Non-African American) 80.5; Potassium 3.8 mmol/L (3.5-5.1)
[2019-06-04] MEDS: OXYCODONE HCL IR 5 MG TAB (IMMEDIATE RELEASE) PO PRN (08:04)
[2019-06-04] MEDS: CLOPIDOGREL BISULFATE 75 MG TAB PO SCH (08:06)
[2019-06-04] MEDS: FUROSEMIDE 40 MG TAB PO SCH (08:06)
[2019-06-04] MEDS: ISOSORBIDE MONO EXTENDED REL 60 MG TABCR PO SCH (08:06)
[2019-06-04] MEDS: LOSARTAN POTASSIUM 50 MG TAB PO SCH (08:06)
[2019-06-04] MEDS: METOPROLOL SUCC 50MG EXT REL TAB PO SCH (08:06)
[2019-06-04] MEDS: POLYETHYLENE (MIRALAX) 17 GM PACK PO SCH (08:07)
[2019-06-04] MEDS: ASPIRIN 81 MG ECTAB PO SCH (08:07)
[2019-06-04] MEDS: TRIAMCINOLONE ACET 0.1% OINT 15 GM TUBE EXT SCH (08:07)
[2019-06-04] MEDS: FAMOTIDINE 20 MG TAB PO SCH (08:08)
[2019-06-04] MEDS: TOPIRAMATE 50 MG TAB PO SCH (08:08)
[2019-06-04] MEDS: GABAPENTIN 100 MG CAP PO SCH ×2 (08:08→14:45)
--- NOTE | 2019-06-04 10:41 | Discharge Summary ---
Date of Service June 04, 2019 Admission HPI Per Admitting Provider 59 y/o male presents to the ED for the 4th time since 05/16 with a swollen, reddened and painful left lower leg. He is being treated with Augmentin and had had 2 doses of IV Rocephin in the interim. The patient reports that the leg looks about the same, but the pain has gotten worse. There is no report of trauma, F/C, cough, or SOB. WBC count was 14.65 on 05/16 and down to 4.2 today. Primary Care Provider: Hany Berrios Admission Exam Per Admitting Provider General- adult male, NAD Head- atraumatic Eyes- PERRL, EOMI, anicteric ENT- oropharynx clear Neck- supple, no JVD, no adenopathy, no thyromegaly. Lungs- CTA b/l no R/R/W Heart- Reg, Nrl S1S2 without M/R/G. Abdomen- normal bowel sounds, soft, nontender. Extremities- Bright red erythema to the left lower leg knee to ankle, with + 3 non-pitting edema, tender to the touch. Right leg has +1 edema. Neuro- alert, oriented x 3; PERRL, EOMI; neurology specialist II-XII grossly intact, non-focal. Skin- No rash, see ext. Principal Diagnosis Left Leg Cellulitis Discharge Exam Constitutional WD/WN, vitals as above + obese; no acute distress Eyes + anicteric sclerae and PERRL Neck trachea midline, no thyromegaly Respiratory normal respiratory effort, lungs clear to auscultation Cardiovascular Rate/Rhythm: regular rate and regular rhythm Heart Sounds: normal S1 and normal S2; no murmur Vessels: no JVD Extremities: + edema (1+ BLE) Gastrointestinal (Abdomen) normal bowel sounds, soft, nontender, no hepatosplenomegaly Musculoskeletal no cyanosis or clubbing, extremities motor strength 5/5 Head/Neck/Chest: normocephalic and head atraumatic Ankle: + ankle abnormal to inspection, + skin erythema and + ecchymosis Neurologic PERRL, EOMI, accommodation nl, no face palsy, no dysarthria deep tendon reflexes 2+ bilaterally, moves all extremities and awake Psychiatric Orientation: alert and oriented x 3 Lymphatic no cervical or axillary lymphadenopathy Discharge Data Allergies Allergy/AdvReac Type Severity Reaction Status Date / Time latex Allergy Mild RASH Unverified 05/28/19 11:39 Consultations 05/28/19 13:49 ED Decision to Admit Stat 06/02/19 07:49 Consult Orthopedic Surgery Routine Ordered Studies 05/28/19 12:00 US venous doppler LE LT Urgent 05/31 XRAY ANKLE 06/01/19 18:06 MR ankle LT wo con Routine Hospital Course (1) Cellulitis of left lower leg: * Improving-- pain/erythema initially without significant improvement despite IV rocephin/vanco and was switched to IV Zosyn (MRSA swab negative) with improvement of erythema/swelling, but not pain improvement-- likely secondary to MRI findings of degenerative tendon tears * Elevate left leg while in bed -- stressed importance to decrease swelling * Pain control- oxycodone and Toradol, gabapentin. Use opioids sparingly. Given short course of oxycodone and gabapentin for pain. Patient without evidence for constipation. Several BMs day of discharge, but formed -- if any loose stools in next couple of days, would have patient follow up with PCP for stool testing for cdiff. Not warranted prior to discharge as all stools formed. * U/S venous Doppler LLE performed on 05/16/19 and repeated on 05/28 which were both negative for DVT, although patient does have superficial nonocclusive thrombus of L greater saphenous v * Uric acid wnl at 5.3 so not likely gout * X-ray 3 view LEFT ANKLE 06/02 -- soft tissue prominence in region of distal Achilles tendon suggesting associated tendinosis. Given 20mg prednisone, no improvement * MRI 06/01 with evidence of partial tear anterior tibialis tendon, split tear at proximal peroneus brevis tendon, mild distal Achilles tendinosis, mild plantar fascitis, diffuse subcu edema, no evidence for effusion or fracture/dislocation-- continues to deny any trauma * Ortho consult with no intervention suggested at this time -- patient set up to see ortho as outpatient for further evaluation once infection cleared * Discharged home on Augmentin to complete abx course, as patient received seven days IV abx while inpatient. Fluoroquinolones avoided, unlikely pseudomonal in nature, as wanting to avoid risk for tendon rupture with that class of abx. * Patient to have follow up with PCP on 06/07 (2) CAD (coronary artery disease): * Continued aspirin 81mg, Plavix 75mg, isosorbide, metoprolol 50mg BID, prn NTG. * Continued atorvastatin 40mg (3) Essential hypertension: * Stable BP 122/68 prior to discharge * Home losartan 50mg and Lasix 40mg continued (4) Morbid obesity with BMI of 50.0-59.9, adult: * Heart healthy diet * Denies history of sleep apnea -- stated he was tested, but told he did not have * Continued Topamax as patient reported using Topamax for this diagnosis for weight loss (5) Pre-diabetes: * A1c 5.9% in April 2018, although patient unaware of ever hearing about this * Repeat A1c at 6.2-- counselled on what this means, diet/exercise, likely contributing to slow healing -- will need close follow up outpatient, possible initiation of metformin -- defer to PCP (6) Diastolic CHF, chronic: * Most recent ECHO 12/01/18 with grade II diastolic dysfunction. Systolic function normal. Mild LVH. No wma * Continued home lasix, lisinopril, metoprolol as above (7) DVT prophylaxis: * Lovenox 40mg SQ daily while inpatient Dispo: discharged to home Total Time Total Time Spent Total Time Spent (In Minutes): 50 Discharge Plan Discharge Items Patient Disposition: Home - Self-Care Reason For Visit: CELLULITIS LEFT LEG Discharge Diagnosis: Left Leg Cellulitis Condition on Discharge: Good Goals: You have been hospitalized for an acute medical problem. During your stay at [facility], we have made an effort to correct the problem that brought you to the hospital while keeping you as comfortable as possible. Medications were used to bring your condition under control and your discharge instructions will include directions for any medications you should take after leaving the hospital. Please make sure you see your Primary Care Provider as part of your follow up plan. Activity: As commented below Non-emergency contact: Primary Care Provider Call non-emergency contact if: you have any medication questions Follow-up/Referrals: Matthew García MD [Surgeon] - 06/17/19 2:10 pm (Please, follow up at [facility] with Dr. García on ThursdayJune 17 at 2:10 pm. *The office is located at [address] [place] [address]. If you need to change/cancel this appointment, call the office at [phone].) Hany Berrios M.D. [Primary Care Provider] - 06/07/19 9:15 am (Please, follow up at Dr. Berrios' office on ThursdayJune 07 at 9:15 am. *If you need to change this appointment, call the office at [phone].) Diet: Heart Healthy Addtl Attending Provider Instructions: You have been sent medications for pain control. You have received these medications while inpatient -- they are gabapentin and oxycodone. Please only take as needed. You have been sent prescriptions for antibiotics. You had previously been on Augmentin prior to arriving to the emergency room, and needed several days of IV antibiotics to ensure that your infection gets adequately treated, and it has been determined that Augmentin by mouth after several days of IV antibiotics is the best course at this time. The length of total treatment has been extended. Please take as directed and do not miss any doses. You received IV antibiotics during your hospitalization and received a dose prior to discharge. You should start the oral antibiotics TOMORROW morning. Please keep your leg ELEVATED as much as possible. This will help to reduce the swelling and promote healing. You should also not return to work until cleared by your primary care provider. An appointment has been made with Dr. Berrios for June 07 at 9:15. Please follow up with him to monitor the improvement of your leg cellulitis. You should also discuss the results of your hemoglobin A1c (a test to check for diabetes) as your level is elevated from 5.9 to 6.2 since last year. This is labeled as pre-diabetes, and as we discussed previously, this increases your risk of neuropathy (numbness/tingling) in your legs as well as damage to your vasculature. It may be a good idea to discuss starting a medication like metformin, given your heart history. An appointment has also been made with Dr. García for June 17 as above. If your pain resolves once the infection has resolved you may cancel this appointment, but it is a good idea to follow up to see if there are any other treatment options available for your tendonitis and partial tears in the ankle tendons. You were having diarrhea before discharge from the hospital which may have been from getting Miralax. If the diarrhea lasts for another 1-2 days, then please call your doctor to have them order a test of your stool for an infection of the stool called C. diff. Please report to the closest emergency room for fever, any worsening redness/pain, shortness of breath, or for any other symptoms that are concerning for you. It has been a pleasure taking part you care while you have been in the hospital. Take care and have a Happy Holiday! Pending Studies at Discharge: No Stand-Alone Forms: My [facility], Opioid Pain Management, Work/School Release (Inpt) Medications and DC Order Prescriptions: New gabapentin 100 mg Capsule 200 mg PO TID Qty: 10 RF: 0 oxycodone 5 mg Tablet 5 mg PO Q6 PRN (Reason: pain) Qty: 10 RF: 0 Continued atorvastatin 40 mg Tablet 40 mg PO HS RF: 0 metoprolol succinate 50 mg Tablet Extended Release 24 Hr 50 mg PO BID RF: 0 clopidogrel [Plavix] 75 mg Tablet 75 mg PO QAM RF: 0 aspirin [Aspirin Low Dose] 81 mg Tablet,Delayed Release (Dr/Ec) 81 mg PO QAM RF: 0 isosorbide mononitrate 60 mg tablet extended release 24 hr 60 mg PO QAM RF: 0 losartan 50 mg tablet 50 mg PO QAM RF: 0 nitroglycerin 0.4 mg tablet, sublingual 0.4 mg sublingual Q5M PRN (Reason: chest pain) Qty: 6 RF: 0 furosemide [Lasix] 40 mg Tablet 40 mg PO DAILY RF: 0 topiramate [Topamax] 50 mg Tablet 50 mg PO BID RF: 0 Changed amoxicillin-pot clavulanate [Augmentin] 875-125 mg tablet 1 tab PO BID 4 Days Qty: 8 RF: 0 Discontinued furosemide [Lasix] 20 mg Tablet 20 mg PO DAILY RF: 0 hydrocodone-acetaminophen [Cooter] 5-325 mg tablet 1 - 2 tab PO Q6H PRN (Reason: pain) Qty: 20 RF: 0 Discharge Orders: Discharge Order (Routine); Ordered 06/04/19 Ordered By: Farideh Rascon/Other Patient Handouts: Diabetes Resources, Diabetes Healthy Meals, Diabetes Exercise Benefits, A1C Admission Data Admit Date/Time: 05/30/19 17:02 Attending Provider: Farideh Guzman Admit Provider: Wesley Krueger Primary Care Provider: Hany Berrios Other Providers: Idris Selby ; Luke Schaefer Other Interventions: Discharge Summary Assessment (RN) Last Done: 06/04/19 14:20 DC Date/Time DO NOT enter until pt leaves facility: 06/04/19 16:00 Supervising Physician Co-Signing Physician Notes PA Supervision Note: I personally saw and examined the patient. I verified all gay points and agree with JOEY Jefferson with the following exceptions and/or additions: Pt feels better,pain is controlled, swelling is decreased, erythema much less. He is ambulating independently Vitals reviewed Gen: AAOx3, NAD, obese HEENT: Anicteric sclerae, EOMI CV: RRR no mgr nl S1S2 Pulm: CTAB no wcr Ext: Left medial ankle with edema localized, also with edema generalized in the ankle and distal leg with minimal residual erythema to the mid tibia,, positive tenderness to palpation over left medial ankle anteriorly but is improved from previous, 2+ DP pulses bilat Skin: Erythema of left leg as above, warm/dry Neuro: Full strength throughout 59-year-old male with history as above, here with left ankle and leg cellulitis, persistent pain and swelling left medial ankle No septic joint or need for surgical intervention Degenerative changes of ankle may be contributing to pain and swelling cellulitis much improved -continue abx after discharge f/u with Ortho for ankle pain
== END 2019-06-04 16:00 | disposition home or self-care (01) | DRG 603 ==
LOC: ED 10:51 → 3N 10:51 → SUATTDRO 14:15 → 3N 15:10

== ENCOUNTER 2020-05-28 07:18 | Observation (INO) ==
[2020-05-28] MEDS ORDERED: ASPIRIN CHEW 324 MG PO STA (07:54)
[2020-05-28] MEDS ORDERED: NITROGLYCERIN SL 0.4 MG/TAB TAB SL PRN (07:54)
--- NOTE | 2020-05-28 07:54 | Emergency Department Note ---
Impression & Plan Chest pain, CAD (coronary artery disease), Hypertension ED Provider Note NAME: JAXON CHOU AGE: 60 SEX: M : 1960 ARRIVES VIA: Walk-In INFORMANT: Patient ED PROVIDER(S): Manuel Sheth DO CHIEF COMPLAINT: Chest pain and shortness of breath HPI: Patient is a 60-year-old male who presents the ER for chest pain and shortness of breath. Symptoms started today while driving. He admits shortness of breath is not significantly changed. He does have some left of mid line/midsternal chest tightness. Denies any belly pain, nausea, vomiting or diarrhea. Admits to swelling in the legs but does not believe it to be much worse. He notes recently at work he has been getting more short of breath with any exertion. This has been worsening over the past year. He has a history of a previous UT back in 2016. He notes this pain feels the same but not nearly as bad. No other exacerbating or remitting factors. He did not take his nitro. He did not take aspirin. Pain is a 3 out of 10 currently as it has improved. ROS: See above HPI for pertinent positives & negatives. A total of 10 systems reviewed and were otherwise negative. PAST MEDICAL HISTORY:See Below PAST SURGICAL HISTORY:See Below FAMILY HISTORY:See Below SOCIAL HISTORY:See Below HOME MEDICATIONS:See Below ALLERGIES:See Below VITALS:See Below PHYSICAL EXAMINATION: GENERAL: Sitting up in bed, alert, well appearing, well nourished, no distress, non-toxic EYE EXAM: normal conjunctiva. OROPHARYNX: no exudate, no erythema, lips, buccal mucosa, and tongue normal and mucous membranes are moist NECK: supple, no nuchal rigidity, no adenopathy, non-tender LUNGS: Clear to auscultation. Normal chest wall mechanics HEART: no murmurs, S1 normal and S2 normal ABDOMEN: abdomen soft, non-tender, normo-active bowel sounds, no masses, no rebound or guarding. UPPER EXTREMITIES: upper extremities are grossly normal. LOWER EXTREMITIES: Pitting edema bilaterally. Erythema of left silva calves are equal bilateral NEURO EXAM: Normal sensorium, cranial nerves II-XII grossly intact, normal sp eech, no gross weakness of arms, no gross weakness of legs. MEDICAL DECISION MAKING: Patient is a 60-year-old male who is morbidly obese who presents the ER for chest pain with a history of CHF and hypertension. He admits to chest pain starting earlier today. He has had exertional shortness of breath getting worse over the past year. IV was established blood work was obtained. Labs show no significant leukocytosis or anemia. INR was unremarkable. D-dimer was n egative. Chloride was slightly elevated. LFTs bilirubin and troponin was negative. Lipase unremarkable. He was given aspirin nitro. Covid negative. I am concerned due to his history and presentation that this could be his heart. Discussed the hospitalist patient was admitted for further work-up. He was given nitro and aspirin while in the ER. Triage Nursing notes reviewed. Prior medical records reviewed Vital Signs: reviewed and remarkable for HTN Differential diagnosis: Differential diagnoses includes but is not limited to acute coronary syndrome, myocardial infarction, pericarditis, pulmonary embolus, aortic dissection, pneumonia, pneumothorax, musculoskeletal, shingles, esophageal. ER treatment provided: See below Diagnostics interpreted by me: ECG: Sinus rhythm rate 80 Normal axis No PVCs QTC 435 Cardiac Monitoring: An order was placed for continuous cardiac monitoring. The monitor shows a rate of 62 with sinus rhythm. Laboratory studies: As stated above and show below. Imaging studies: Portable AP upright 1 view of the chest shows no focal infiltrate or pneumo thorax Consultation(s): Discussed with hospitalist for further evaluation ED COURSE: Procedures: none Critical Care: None Past Med/Surg History Medical History (Updated 05/28/20 @ 13:18 by Manuel Sheth DO) Acute bronchitis CAD (coronary artery disease) Chronic cough Chronic venous insufficiency Diastolic CHF, chronic Essential hypertension Heart attack Hyperlipidemia Hypertension Morbid obesity with BMI of 50.0-59.9, adult Nonsustained ventricular tachycardia Obesity Pre-diabetes Surgical History H/O heart artery stent Family History Unknown Stroke Aortic aneurysm Diabetes Social History Smoking Status: Never smoker Second Hand Exposure: No; Hx Alcohol Use: No Hx Substance Use: No Preferred Language: Faroese Communication Ability: Effective Digital Project Coordinator Required: No Beliefs That Will Affect Care: None marital status: Current Living Situation: Spouse Feels Safe at Home: Yes Assistive Devices: Glasses Allergies Allergies Allergy/AdvReac Type Severity Reaction Status Date / Time latex Allergy Mild RASH Unverified 05/28/20 08:16 Home Meds Home Medications Medication Instructions Recorded Confirmed aspirin [Aspirin Low Dose] 81 mg PO QAM 04/26/18 05/28/20 atorvastatin 40 mg PO HS 04/26/18 05/28/20 clopidogrel [Plavix] 75 mg PO QAM 04/26/18 05/28/20 metoprolol succinate 50 mg PO QAM 04/26/18 05/28/20 isosorbide mononitrate 60 mg PO QAM 05/16/19 05/28/20 furosemide [Lasix] 40 mg PO QAM 05/20/19 05/28/20 topiramate [Topamax] 50 mg PO BID 05/20/19 05/28/20 nitroglycerin 0.4 mg SUBLINGUAL DIRECTED PRN 10/10/19 05/28/20 pantoprazole 40 mg PO QAM 10/10/19 05/28/20 Results & Data (ED) Vital Signs Vital Signs - 24 hr 05/28/20 07:23 05/28/20 08:15 Temperature 36.8 C Temperature Source Oral Pulse Rate 86 Pulse Rate [Apical] 70 Respiratory Rate 20 20 Respiratory Effort / Characteristics Non-Labored Spontaneous Respiratory Depth Normal Respiratory Pattern Regular Blood Pressure 183/74 H Blood Pressure [Right Arm] 139/69 Blood Pressure Mean 110 Blood Pressure Mean [Right Arm] 92 Blood Pressure Position Sitting Pulse Oximetry 96 96 Oxygen Delivery Method Room Air Room Air Sepsis Recent Fever Within 48 Hours No Sepsis New/Unexplained Change in Mental Status N/A Sepsis Action Taken by Nursing No Action Required Laboratory Data Result diagrams: 05/28/20 07:45 05/28/20 07:45 Lab Results 05/28/20 05/28/20 05/28/20 Range/Units 07:45 07:45 07:45 WBC 5.55 (4.8-10.8) K/uL RBC 4.81 (4.7-6.1) M/uL Hgb 14.4 (14.0-18.0) g/dL Hct 42.6 (42-52) % MCV 88.6 (80-100) fL MCH 29.9 (25-34) pg MCHC 33.8 (32-36) g/dL RDW Std Deviation 45.5 (36.4-46.3) fL RDW Coeff of [place] 14.0 (11.5-14.5) % Plt Count 215 (130-400) K/uL MPV 9.1 (7.4-10.4) fL Immature Gran % (Auto) 0.5 % Neut % (Auto) 67.7 % Lymph % (Auto) 18.4 % [place] % (Auto) 6.5 % Eos % (Auto) 6.5 % Baso % (Auto) 0.4 % Neut # (Auto) 3.76 (1.4-6.5) K/uL Lymph # (Auto) 1.02 L (1.2-3.4) K/uL [place] # (Auto) 0.36 (0.11-0.59) K/uL Eos # (Auto) 0.36 (0-0.5) K/uL Baso # (Auto) 0.02 (0-0.2) K/uL Immature Gran # (Auto) 0.03 H (0.00-0.02) K/uL PT 10.1 (9.0-12.0) Seconds INR 1.0 (0.9-1.1) APTT 25.8 (21.0-31.0) Seconds PTT Ratio 0.9 D-Dimer 340 (0-500) ug/L FEU Sodium 140 (136-145) mmol/L Potassium 4.2 (3.5-5.1) mmol/L Chloride 111 H (98-107) mmol/L Carbon Dioxide 25 (21-32) mmol/L Anion Gap 4.0 (3-11) BUN 11 (7-18) mg/dl Creatinine 0.86 (0.6-1.4) mg/dl Est Cr Clr Drug Dosing 149.6 ml/min Est GFR ( Amer) 108.5 Est GFR (Non-Af Amer) 93.6 BUN/Creatinine Ratio 12.8 (10-20) Glucose 145 H (70-99) mg/dl Calcium 8.6 (8.5-10.1) mg/dl Total Bilirubin 0.5 (0.2-1) mg/dl AST 19 (15-37) U/L ALT 29 (12-78) U/L Alkaline Phosphatase 100 (45-117) U/L Troponin I < 0.015 (0-0.045) ng/ml Total Protein 6.6 (6.4-8.2) gm/dl Albumin 3.4 (3.4-5.0) gm/dl Globulin 3.2 (2.5-4.0) gm/dl Albumin/Globulin Ratio 1.1 (0.9-2) Lipase 192 (73-393) U/L Administered Medications Discontinued Medications Aspirin (Aspirin Chew 324 Mg) 324 mg PO NOW STA Stop: 05/28/20 07:55 Last Admin: 05/28/20 08:01 Dose: 324 mg Documented by: [id number] Fentanyl Citrate (Fentanyl Citrate 100 Mcg/2 Ml Vial) Confirm Administered Dose 100 mcg .ROUTE .STK-MED ONE Stop: 05/28/20 11:27 Last Admin: 05/28/20 12:18 Dose: 50 mcg Documented by: [id number] Heparin Sodium (Porcine) (Heparin (Porcine) 1000 Unit/Ml 10 Ml (Antenna Engineer Use Only)) Confirm Administered Dose 10,000 units .ROUTE .STK-MED ONE Stop: 05/28/20 11:27 Last Admin: 05/28/20 12:18 Dose: 5,000 units Documented by: [id number] Heparin Sodium/Sodium Chloride (Heparin In Nss Infusion 1000 Unit/500 Ml (2 U/Ml) Bag) Confirm Administered Dose 3,000 units IV .STK-MED ONE Stop: 05/28/20 11:28 Last Admin: 05/28/20 12:18 Dose: 3,000 units Documented by: [id number] Midazolam HCl (Midazolam Hcl 1 Mg/Ml 2ml Vial) Confirm Administered Dose 2 mg .ROUTE .STK-MED ONE Stop: 05/28/20 11:28 Last Admin: 05/28/20 12:19 Dose: 1 mg Documented by: [id number] Nicardipine HCl (Nicardipine Hcl Inj 2.5 Mg/Ml 10 Ml Amp) Confirm Administered Dose 25 mg .ROUTE .STK-MED ONE Stop: 05/28/20 11:27 Last Admin: 05/28/20 12:18 Dose: 25 mg Documented by: [id number] Nitroglycerin/Dextrose (Nitroglycerin/D5w 100mcg/Ml 20ml Syr) Confirm Administered Dose 2,000 mcg .ROUTE .STK-MED ONE Stop: 05/28/20 11:28 Last Admin: 05/28/20 12:19 Dose: 2,000 mcg Documented by: [id number] Discharge Plan Visit Data Chief Complaint: Chest Pain Stated Complaint: PAIN IN CHEST ED Provider: Manuel Sheth Discharge Problem: Chest pain, CAD (coronary artery disease), Hypertension Discharge Problem: Chest pain Qualifiers: Chest pain type: unspecified Qualified Code(s): R07.9 - Chest pain, unspecified CAD (coronary artery disease) Qualifiers: Coronary Disease-Associated Artery/Lesion type: [place] artery [place] vs. transplanted heart: [place] heart Associated angina: angina presence unspecified Qualified Code(s): I25.10 - Atherosclerotic heart disease of [place] coronary artery without angina pectoris Hypertension Qualifiers: Hypertension type: unspecified Qualified Code(s): I10 - Essential (primary) hypertension
[2020-05-28 08:12] LABS: Basophils # (auto) 0.02 K/uL (0-0.2); Basophils % (auto) 0.4 %; Eosinophils # (auto) 0.36 K/uL (0-0.5); Eosinophils % (auto) 6.5 %; Hematocrit (blood only) 42.6 % (42-52); Hemoglobin 14.4 g/dL (14.0-18.0); Immature Granulocytes # (auto) 0.03 K/uL (0.00-0.02); Immature Granulocytes % (auto) 0.5 %; Lymphocytes # (auto) 1.02 K/uL (1.2-3.4); Lymphocytes % (auto) 18.4 %; Mean Corpuscular Hemoglobin 29.9 pg (25-34); Mean Corpuscular Hgb Conc 33.8 g/dL (32-36); Mean Corpuscular Volume 88.6 fL (80-100); Mean Platelet Volume 9.1 fL (7.4-10.4); Monocytes # (auto) 0.36 K/uL (0.11-0.59); Monocytes % (auto) 6.5 %; Neutrophils # (auto) 3.76 K/uL (1.4-6.5); Neutrophils % (auto) 67.7 %; Platelet Count 215 K/uL (130-400); RDW Standard Deviation 45.5 fL (36.4-46.3); Red Blood Count 4.81 M/uL (4.7-6.1); White Blood Count 5.55 K/uL (4.8-10.8)
--- NOTE | 2020-05-28 08:13 | XRay Report ---
XR chest 1V portable CLINICAL HISTORY: Atypical chest pain. COMPARISON STUDY: Chest CT May 16, 2019. Chest radiograph October 10, 2019. FINDINGS: Lung volumes are normal. Lungs are clear. There is no pneumothorax or pleural effusion. Car diac size is stable. Mediastinal contours are normal. There is no evidence for pulmonary edema. IMPRESSION: No acute cardiopulmonary findings. No change in appearance of the chest. ACT 112: Negative or not required by law. Electronically signed by: Peng Fierro M.D. 05/28/2020 8:12 AM
[2020-05-28 08:21] LABS: Albumin Level 3.4 gm/dl (3.4-5.0); Aspartate Aminotransferase 19 U/L (15-37); BUN Creatinine Ratio 12.8 (10-20); Blood Urea Nitrogen 11 mg/dl (7-18); Calcium 8.6 mg/dl (8.5-10.1); Carbon Dioxide 25 mmol/L (21-32); Chloride 111 mmol/L (98-107); Creatinine Clr Calc Pharmacy 149.6 ml/min; Est GFR (African American) 108.5; Est GFR (Non-African American) 93.6; Glucose 145 mg/dl (70-99); Lipase 192 U/L (73-393); Potassium 4.2 mmol/L (3.5-5.1); Sodium 140 mmol/L (136-145)
[2020-05-28 08:23] LABS: D Dimer 340 ug/L FEU (0-500); Partial Thromboplastin Ratio 0.9; Partial Thromboplastin Time 25.8 Seconds (21.0-31.0); Prothrombin Time 10.1 Seconds (9.0-12.0)
[2020-05-28 08:25] LABS: Alanine Aminotransferase 29 U/L (12-78); Albumin Globulin Ratio 1.1 (0.9-2); Alkaline Phosphatase 100 U/L (45-117); Bilirubin,Total 0.5 mg/dl (0.2-1); Globulin 3.2 gm/dl (2.5-4.0); Total Protein 6.6 gm/dl (6.4-8.2); Troponin I < 0.015 ng/ml (0-0.045)
--- NOTE | 2020-05-28 08:53 | History & Physical Report ---
Date of Service May 28, 2020 Assessment & Plan (1) Chest pain: Reportedly 3-10 chest pain reminiscent of his previous anginal equivalent. In emergency department he had negative EKG were actually normal sinus rhythm negative troponins. His pain resolved. He did not have associated symptoms, he has not taken am medicines, since his previous stress test was positive although at a high HR, will have Dr Fatima weigh in on the best plan moving foreward to diagnosis and treatment, will give his am meds ( was given asprin) (2) History of NJ (myocardial infarction): Patient has a history of NJ and previous stent as per a note from Dr. Fady Fatima and an office visit from October 2019. He has a drug-eluting stent to the RCA from 2016. Echocardiogram of 2018 last showing normal ejection fraction concentric LVH. Dobutamine stress echo April 2018 was positive for ischemia at 99% maximum predicted heart rate. Distribution was based to mid septal wall hypokinesis with stress. Inferior lateral ST depressions at that time reproducible chest pain. Normal resting echo. Subsequent cardiac catheterization on the same date with a 20% proximal and 20 to 30% mid LAD stenosis. 95% ostial stenosis of a small second septal. 40 to 50% ostial stenosis of the small third diagonal. Widely patent mid RCA stent. 30% mid RCA stenosis distal to prior stent. 20 to 30% distal RCA stenosis. Normal intracardiac filling pressures were measured. No intervention was performed at that time. Echo cardiogram 2019 normal EF grade 2 diastolic dysfunction. Continues on aspirin atorvastatin Plavix Lasix isosorbide and metoprolol. (3) Hypertension: Typically patient takes Lasix 40 a day, isosorbide 6 a day, metoprolol succinate 50 a day (4) Diastolic CHF, chronic: Managed with Lasix considering venous ablation of his lower extremities by Dr. Fatima (5) Morbid obesity with BMI of 50.0-59.9, adult: (6) History of 2019 novel coronavirus disease (COVID-19): Rapid Covid testing in the emergency department is negative History of Present Illness Primary Care Provider: Hany Berrios Patient is a 60-year-old male who presents the ER for chest pain and shortness of breath. Symptoms started today while driving. He voices shortness of breath. He does not believe that is most worse. He does have some left of mid line/midsternal chest tightness. Denies any belly pain nausea vomiting or diarrhea. Admits to swelling in the legs but does not believe it to be much worse. He notes recently had work has been getting more short of breath with any exertion. This has been worsening over the past year, but usually with exertion . He has a history of a previous NJ back in 2016. He notes this pain feels the same but not nearly as bad. No other exacerbating or remitting factors. He did not take any of his typical am meds. Pain is a 3 out of 10 currently as it has improved. he has no associated symptoms. I did speak to DR Fatima and he will evaluate in the ER Allergies Allergy/AdvReac Type Severity Reaction Status Date / Time latex Allergy Mild RASH Unverified 05/28/20 08:16 Home Medications Medication Instructions Recorded Confirmed Type aspirin [Aspirin Low Dose] 81 mg PO QAM 04/26/18 05/28/20 History atorvastatin 40 mg PO HS 04/26/18 05/28/20 History clopidogrel [Plavix] 75 mg PO QAM 04/26/18 05/28/20 History metoprolol succinate 50 mg PO QAM 04/26/18 05/28/20 History isosorbide mononitrate 60 mg PO QAM 05/16/19 05/28/20 History furosemide [Lasix] 40 mg PO QAM 05/20/19 05/28/20 History topiramate [Topamax] 50 mg PO BID 05/20/19 05/28/20 History nitroglycerin 0.4 mg SUBLINGUAL DIRECTED PRN 10/10/19 05/28/20 History pantoprazole 40 mg PO QAM 10/10/19 05/28/20 History Past Med/Surg History Medical History (Updated 05/28/20 @ 08:50 by Bruno Bernardo MD) Acute bronchitis CAD (coronary artery disease) Chronic cough Chronic venous insufficiency Diastolic CHF, chronic Essential hypertension Heart attack Hyperlipidemia Hypertension Morbid obesity with BMI of 50.0-59.9, adult Nonsustained ventricular tachycardia Obesity Pre-diabetes Surgical History H/O heart artery stent Family History Unknown Stroke Aortic aneurysm Diabetes Social History Smoking Status: Never smoker Second Hand Exposure: No; Hx Alcohol Use: No Hx Substance Use: No Preferred Language: Barbadian Communication Ability: Effective Pluck Separator Required: No Beliefs That Will Affect Care: None marital status: Current Living Situation: Spouse Feels Safe at Home: Yes Assistive Devices: Glasses Review of Systems Review of Systems: Mild distress and fatigue no headache, blurry or double vision no speech or swallowing issues chest pain like a pressure no shortness of breath, cough or wheezes no abdominal pain, nausea or vomiting, diarrhea or constipation no dysuria, hematuria or frequency no focal joint pain or swelling no back pain, CVA tenderness or radicular pain no bruising, bleeding does have LE skin rashes no focal signs of weakness or numbness or altered sensation no complaints of anxiety or depression.. Physical Exam Physical Exam: The patient appeared well nourished and normally developed. Vital signs as documented. Head exam is normocephalic atraumatic no scleral icterus Neck is without JVD, thyromegaly, or carotid bruits. Lungs are clear to auscultation, no focal loss of breath sounds Cardiac exam, Rhythm is regular.. No murmurs, rubs or gallops. Abdominal exam reveals normal bowel sounds, soft non tender, no masses Extremities are edematous with bilateral chronic venous stasis changes Neurologic exam is alert and oriented, no focal loss of strength or sensation Skin is with LE rashes not cellulitis at this time Psychologically is without concerns for anxiety or depression. Results & Data Results & Data ([facility]) Vital Signs (Past 12 Hours) Vital Signs Temp Pulse Pulse Resp BP BP Pulse Ox 05/28/20 08:15 70 20 139/69 96 05/28/20 07:23 98.2 F 86 20 183/74 H 96 PG Care Time/CCT Total # of Minutes Spent Total Time Spent with Patient: Total time spent is greater than 50% in coordination of care (as documented) at patient's floor/unit and/or counseling patient: Coding Level of Care Code 81576 Initial Inpt Care Lvl 3 Diagnoses Chest pain R07.9 History of [place] (myocardial infarction) I25.2 Hypertension I10 Diastolic CHF, chronic I50.32 Morbid obesity with BMI of 50.0-59.9, adult E66.01; Z68.43 History of 2019 novel coronavirus disease (COVID-19) Z86.19
[2020-05-28] MEDS ORDERED: ISOSORBIDE MONO EXTENDED REL 60 MG TABCR PO SCH (10:11)
[2020-05-28] MEDS ORDERED: CLOPIDOGREL BISULFATE 75 MG TAB PO SCH (10:11)
[2020-05-28] MEDS ORDERED: METOPROLOL SUCC 50MG EXT REL TAB PO SCH (10:11)
[2020-05-28] MEDS ORDERED: fentaNYL citrate 100 MCG/2 ML VIAL ONE (11:26)
[2020-05-28] MEDS ORDERED: niCARdipine HCL INJ 2.5 MG/ML 10 ML AMP ONE (11:26)
[2020-05-28] MEDS ORDERED: HEPARIN (PORCINE) 1000 UNIT/ML 10 ML (CATH LAB USE ONLY) ONE (11:26)
[2020-05-28] MEDS ORDERED: NITROGLYCERIN/D5W 100MCG/ML 20ML SYR ONE (11:27)
[2020-05-28] MEDS ORDERED: MIDAZOLAM HCL 1 MG/ML 2ML VIAL ONE (11:27)
--- NOTE | 2020-05-28 12:22 | Pre Anesthesia Assessment ---
Date of Service May 28, 2020 Pre Sedation Assessment Vital Signs Temp Pulse Pulse Resp BP BP Pulse Ox 05/28/20 10:42 65 18 159/77 H 98 05/28/20 08:15 70 20 139/69 96 05/28/20 07:23 98.2 F 86 20 183/74 H 96 Cardiovascular RRR, no murmur, no edema Respiratory normal respiratory effort, lungs clear to auscultation Pre-Sedation Airway Assessment Smoking Status: Never smoker Hx Sleep Apnea: Yes Hx Difficult Intubation: No Oral Cavity: + WNL Mallampati Class: III ASA: ASA3 Procedure Planning Contraindications for Sedation: none Current Medications Reviewed: Yes Notes The planned sedation has been discussed with the patient. Informed Consent was obtained. I have identified the patient, determined the appropriateness of sedation and have assessed the patient immediately prior to the procedure. All medicine(s) and interventions are by my order.
--- NOTE | 2020-05-28 12:22 | Post Anesthesia Assessment ---
Date of Service May 28, 2020 Post Sedation Assessment Vital Signs Temp Pulse Pulse Resp BP BP Pulse Ox 05/28/20 10:42 65 18 159/77 H 98 05/28/20 08:15 70 20 139/69 96 05/28/20 07:23 98.2 F 86 20 183/74 H 96 Recovery Score Activity: Moves 4 extremities Respiration: Deep Breath/Cough Circulation: +/-20% PreAnes Value Consciousness: Fully Awake Oxygen Saturation: O2 needed for >90% Discharge Sedation Level of Care: Fast Track Phase II Post Sedation Plan On clinical assessment, the patient appears to have tolerated the sedation without complications. Patient is recovering as anticipated. Patient will continue to be monitored by nursing and may be discharged when sedation discharge criteria are met per below protocol. Upon Completions of procedure up to 15 minutes continue every 5 minute vital signs and the P.A.R. score; then discharge to a Phase I or Fast Track to Phase II per the following guidelines: * Discharge Patient to appropriate Phase II area if PAR is 8 or greater or return to pre- procedure baseline. The post - procedure orders will be as directed. * If PAR score is less than 8 or not return to pre-procedure baseline then patient will follow Phase I monitoring till PAR is reached for Phase II. The Phase I may be done in procedure room or may call to secure a Phase I area. * If naloxone or flumazenil are used for reversal, hold in Phase I for continued monitoring from when last reversal dose was given for a minimum of 60 minutes or longer pending the nurse and/or physician discretion of patient condition before discharge to Phase II. Please call the Sedation Physician to re-evaluate and complete post-note for discharge to Phase II area. Do NOT discharge from procedure sedation or Phase 1 until post- sedation evaluation note is complete by procedure /sedation MD Sedation Discharge Instructions to be given to the patient at discharge to home.
--- NOTE | 2020-05-28 12:32 | Cardiology Consultation ---
Date of Consultation May 28, 2020 Assessment & Plan (1) Chest pain: 2. Coronary disease post prior PCI to RCA 3. HFpEF 4. Hypertension 5. Morbid obesity 6. Chronic venous insufficiency with prior venous ulceration 7. GERD Currently chest pain-free and initial ECG, troponin unremarkable. Patient at elevated risk for ACS with history, risk factors. Would recommend additional risk stratification. Previous stress test was a false positive and imaging quality limited. Repeat stress test likely again to be limited quality. Suspicion for ACS high enough that reasonable to proceed directly to cardiac catheterization. Discussed risk, benefits, alternatives of procedure and he wishes to proceed. Further recommendations pending findings. History of Present Illness Attending Physician: Bruno Bernardo MD History of Present Illness Mr. Mendiola is a very pleasant 60-year-old man known to me from the outpatient setting admitted today with chest pain. He has a history of coronary artery disease post [place] 12/2015 with single MICKIE placed to mid RCA in [place] (3.5 x 20 Promus). Had a repeat dobutamine stress echo in April 2018 which was technically difficult and showed septal wall hypokinesis with inferior ST depressions. Repeat cardiac catheterization at that time showed patent RCA stent and small branch vessel disease involving second septal and third diagonal. Other medical issues include hypertension, dyslipidemia, diastolic heart failure, nonsustained VT, morbid obesity, chronic venous insufficiency with ulcerations post saphenous vein ablation. Today reports had been in his usual state of health but while driving to work this morning developed squeezing chest pressure. Pain reminiscent but not nearly as severe as his [place]. Pain lasting approximately 2 to 3 hours improved with nitroglycerin in ED. ECG showed normal sinus rhythm with no ST abnormalities. Initial troponin was negative. Allergies Allergy/AdvReac Type Severity Reaction Status Date / Time latex Allergy Mild RASH Unverified 05/28/20 08:16 Home Medications Medication Instructions Recorded Confirmed Type aspirin [Aspirin Low Dose] 81 mg PO QAM 04/26/18 05/28/20 History atorvastatin 40 mg PO HS 04/26/18 05/28/20 History clopidogrel [Plavix] 75 mg PO QAM 04/26/18 05/28/20 History metoprolol succinate 50 mg PO QAM 04/26/18 05/28/20 History isosorbide mononitrate 60 mg PO QAM 05/16/19 05/28/20 History furosemide [Lasix] 40 mg PO QAM 05/20/19 05/28/20 History topiramate [Topamax] 50 mg PO BID 05/20/19 05/28/20 History nitroglycerin 0.4 mg SUBLINGUAL DIRECTED PRN 10/10/19 05/28/20 History pantoprazole 40 mg PO QAM 10/10/19 05/28/20 History Patient History Medical History (Updated 05/28/20 @ 08:50 by Bruno Bernardo MD) Acute bronchitis CAD (coronary artery disease) Chronic cough Chronic venous insufficiency Diastolic CHF, chronic Essential hypertension Heart attack Hyperlipidemia Hypertension Morbid obesity with BMI of 50.0-59.9, adult Nonsustained ventricular tachycardia Obesity Pre-diabetes Surgical History H/O heart artery stent Family History Unknown Stroke Aortic aneurysm Diabetes Social History Smoking Status: Never smoker Second Hand Exposure: No; Hx Alcohol Use: No Hx Substance Use: No Preferred Language: Puerto Rican Communication Ability: Effective Roll Winder Required: No Beliefs That Will Affect Care: None marital status: Current Living Situation: Spouse Feels Safe at Home: Yes Assistive Devices: Glasses Review of Systems Review of Systems: All systems reviewed & are unremarkable except as noted in HPI & below Physical Exam Physical Exam: General: Comfortable, no acute distress HEENT: Sclerae anicteric, mask in place Lungs: Clear to auscultation bilaterally Cardiac: Regular rate and rhythm, no murmurs. Abdomen: Soft, nontender, obese Extremities: 2+ radial artery. Warm, 1-2+ lower extreme edema, chronic venous stasis changes. No active ulcerations. Neuro: Nonfocal Psych: Alert orient x3, normal affect and mood Results & Data ([facility]) Vital Signs (Past 12 Hours) Vital Signs Temp Pulse Pulse Resp BP BP Pulse Ox 05/28/20 10:42 65 18 159/77 H 98 05/28/20 08:15 70 20 139/69 96 05/28/20 07:23 98.2 F 86 20 183/74 H 96 PG Care Time/CCT Total # of Minutes Spent Total Time Spent with Patient: Total time spent is greater than 50% in coordination of care (as documented) at patient's floor/unit and/or counseling patient: Coding Level of Care Code 14584 Inpt Consult Level 4 Diagnoses Chest pain R07.9
--- NOTE | 2020-05-28 13:08 | Cardiac Catheterization ---
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 Cardiac Status Clinical evaluation leading to the procedure CAD Presenation: Unstable angina Anginal Classification: CCS III Heart Failure: No Cardiogenic Shock within 24 Hours: No Cardiac Arrest within 24 Hours: No Imaging Studies Past 6 Months: Yes Stress Studies Past 6 Months: No Diagnostic Physicians Name: Fady Fatima MD Status: Elective Closure Device Percutaneous Entry Location: Radial Closure Device: Radial Band Recommendations: Medical Therapy and/or Counseling PCI Indication: Unstable Angina Intraprocedure Events Significant Disection: No Perforation: No Cardiac Cath Procedure Full Procedure Date May 28, 2020 Pre-Procedure Diagnosis Pre-Procedure Diagnosis: Acute Coronary Syndrome AUC Score AUC Score: 7 Post-Procedure Diagnosis Post-Procedure Diagnosis: Moderate CAD and Normal Intracardiac Pressures Procedure(s) Performed Procedure(s) Performed: Coronary Angiography and Left Heart Cath Planting Material Carrier Fady Fatima MD Computer Technician(s) Stefano Estimated Blood Loss Estimated Blood Loss: 10 Medication(s) Medication(s): Fentanyl, Heparin, Lidocaine 1%, Nicardipine, Nitroglycerin and Versed Summary of Findings Indication: Suspected acute coronary syndrome Access: 6 Vietnamese slender right radial artery under ultrasound guidance Catheters: [place] Findings: LM -luminal irregularities LAD -20% proximal disease, luminal irregularities in the mid segment, 30% stenosis at bifurcation of second diagonal/third diagonal. Distal vessel with luminal irregularities and tapers to apex. -Small second septal with severe ostial stenosis. -Small third diagonal with 70% ostial stenosis Circumflex -moderate caliber vessel, luminal irregularities. -moderate caliber OM 3 without significant disease. RCA -large caliber vessel, dominant, widely patent mid segment stent, 30% stenosis in the mid segment distal to prior stent, 30% stenosis in distal RCA prior to bifurcation with PDA/PLB. -Moderate caliber right PDA without significant disease. LVEDP -11 Arterial Closure: TR band Summary: 1. Mild nonobstructive coronary artery disease in major epicardial vessels -Widely patent mid RCA stent with 30% stenosis just distal to stent. 2. Severe small branch vessel disease 70% ostial third diagonal -severe ostial septal disease 3. Normal intracardiac filling pressure Recommendations: No high risk findings. Recommend continued medical management of coronary artery disease. Continue DAPT, antianginal therapy From a cardiac standpoint OK with discharge later today after TR band removed. Hemodynamics Rest Ao:: 125/77/99 Final Ao: 136/80/96 LV: 141/22 Recommendations Recommendations: Medical Therapy and/or Counseling Specimens Specimens: None Radiation Exposure (mGy) 1576 Contrast (mls) 55 Fluids (cc crystalloids) Fluids (cc crystalloids): 63 Drains Drains: none Anesthesia moderate Procedural Complication(s) None Disposition PCU I attest to the content of the Intraoperative Record and any orders documented therein. Any exceptions are noted below. [facility] Card Cath Procedure Codes Cardiac Catheterization Procedure 1: Cardiovascular Cath Procedures: 38754 Coronaries and LHC (+/-LV) Therapeutic Services & Ancillary Proc Procedure 1: Cardiovascular Tx and Anc Procedures: 34883 Ultrasonic Guidance Vascular Access Moderate Sedation Procedure 1: Sedation/Anesthesia: 60784 Mod Sedation by the same physician;Init15 Min Child Age 5 & Up Procedure 2: Sedation/Anesthesia: 23164 Mod Sedation by the same physician; Ea [id number] Minutes PG Care Time/CCT Total # of Minutes Spent Total Time Spent with Patient: Total time spent is greater than 50% in coordination of care (as documented) at patient's floor/unit and/or counseling patient:
--- NOTE | 2020-05-29 05:22 | Electrocardiogram Report ---
Test Reason : Blood Pressure : / mmHG Vent. Rate : 080 BPM Atrial Rate : 080 BPM P-R Int : 176 ms QRS Dur : 102 ms QT Int : 378 ms P-R-T Axes : 061 037 053 degrees QTc Int : 435 ms Normal sinus rhythm Normal ECG When compared with ECG of 16-MAY-2019 09:19, No significant change was found Confirmed by Vadim Bosch ([id number]) on 05/29/2020 5:22:34 AM Referred By: REFERRED SELF Confirmed By:Vadim Bosch
--- NOTE | 2020-05-31 14:19 | Discharge Summary ---
Date of Service May 28, 2020 Admission HPI Per Admitting Provider Patient is a 60-year-old male who presents the ER for chest pain and shortness of breath. Symptoms started today while driving. He voices shortness of breath. He does not believe that is most worse. He does have some left of mid line/midsternal chest tightness. Denies any belly pain nausea vomiting or diarrhea. Admits to swelling in the legs but does not believe it to be much worse. He notes recently had work has been getting more short of breath with any exertion. This has been worsening over the past year, but usually with exertion . He has a history of a previous WA back in 2016. He notes this pain feels the same but not nearly as bad. No other exacerbating or remitting factors. He did not take any of his typical am meds. Pain is a 3 out of 10 currently as it has improved. he has no associated symptoms. I did speak to DR Fatima and he will evaluate in the ER Principal Diagnosis non cardiac chest pain Discharge Exam The patient appeared well Vital signs as documented. Lungs are clear to auscultation and appear unlabored Cardiac exam, Rhythm is regular.. No murmurs, rubs or gallops. Abdominal exam reveals normal bowel sounds, soft non tender, no masses Extremities are nonedematous and both pedal pulses are normal. Neurologic exam is alert and oriented, no focal loss of strength or sensation Skin is without bruises or rashes Psychologically is without concerns for anxiety or depression. Discharge Data Allergies Allergy/AdvReac Type Severity Reaction Status Date / Time latex Allergy Mild RASH Unverified 05/28/20 08:16 Consultations 05/28/20 08:45 ED Decision to Admit Stat Procedures Performed Operation Date: 05/28/20 11:00 Actual Procedures p Cath, Left with Cors and Vent - Jose Fatima MD s Cineradiography w/Routine Exam - Jose Fatima MD s Ultrasound Vascular Access - Jose Fatima MD Ordered Studies 05/28/20 11:30 CL Cath Imgs for PACS use only Stat Hospital Course (1) Chest pain: Reportedly 3-10 chest pain reminiscent of his previous anginal equivalent. In emergency department he had negative EKG were actually normal sinus rhythm negative troponins. His pain resolved. He did not have associated symptoms, he has not taken am medicines, since his previous stress test was positive although at a high HR, will have Dr Fatima performed left heart catheter did not show any significant occlusive disease. Dr. Fatima recommended discharge on any medication changes Left heart cath 05/28/20 Findings: LM -luminal irregularities LAD -20% proximal disease, luminal irregularities in the mid segment, 30% stenosis at bifurcation of second diagonal/third diagonal. Distal vessel with luminal irregularities and tapers to apex. -Small second septal with severe ostial stenosis. -Small third diagonal with 70% ostial stenosis Circumflex -moderate caliber vessel, luminal irregularities. -moderate caliber OM 3 without significant disease. RCA -large caliber vessel, dominant, widely patent mid segment stent, 30% stenosis in the mid segment distal to prior stent, 30% stenosis in distal RCA prior to bifurcation with PDA/PLB. -Moderate caliber right PDA without significant disease. LVEDP -11 Arterial Closure: TR band Summary: 1. Mild nonobstructive coronary artery disease in major epicardial vessels -Widely patent mid RCA stent with 30% stenosis just distal to stent. 2. Severe small branch vessel disease 70% ostial third diagonal -severe ostial septal disease 3. Normal intracardiac filling pressure Recommendations: No high risk findings. Recommend continued medical management of coronary artery disease. Continue DAPT, antianginal therapy From a cardiac standpoint OK with discharge later today after TR band removed. (2) History of WA (myocardial infarction): Patient has a history of WA and previous stent as per a note from Dr. Fady Fatima and an office visit from October 2019. He has a drug-eluting stent to the RCA from 2016. Echocardiogram of 2018 last showing normal ejection fraction concentric LVH. Dobutamine stress echo April 2018 was positive for ischemia at 99% maximum predicted heart rate. Distribution was based to mid septal wall hypokinesis with stress. Inferior lateral ST depressions at that time reproducible chest pain. Normal resting echo. Subsequent cardiac catheterization on the same date with a 20% proximal and 20 to 30% mid LAD stenosis. 95% ostial stenosis of a small second septal. 40 to 50% ostial stenosis of the small third diagonal. W idely patent mid RCA stent. 30% mid RCA stenosis distal to prior stent. 20 to 30% distal RCA stenosis. Normal intracardiac filling pressures were measured. No intervention was performed at that time. Echo cardiogram 2018 normal EF grade 2 diastolic dysfunction. Continues on aspirin atorvastatin Plavix Lasix isosorbide and metoprolol. (3) Hypertension: Typically patient takes Lasix 40 a day, isosorbide 6 a day, metoprolol succinate 50 a day (4) Diastolic CHF, chronic: Managed with Lasix considering venous ablation of his lower extremities by Dr. Fatima (5) Morbid obesity with BMI of 50.0-59.9, adult: (6) History of 2019 novel coronavirus disease (COVID-19): Rapid Covid testing in the emergency department is negative Total Time Total Time Spent Total Time Spent (In Minutes): It required greater than 30 minutes to prepare this patient for discharge Discharge Plan Discharge Items Patient Disposition: Home - Self-Care Reason For Visit: PAIN IN CHEST Discharge Diagnosis: 1. Chest Pain. 2. CAD s/p Cardiac Catheterization 05/28/2020. Condition on Discharge: Good Activity: Resume your previous activity Lifting Comment: No lifting with right arm or hand x 3 days. Bathing Comment: Keep pressure dressing on right wrist x 24 hours. Keep dry. Sexual Activity: When tolerated Exercise/Sports: Gradually increase as tolerated Exercise Comment: 30 to 45 minutes of aerobic activity 5 days/week walking, exercise bike Driving/Machine Use: Resume 1 day after discharge Weightbearing: Full weightbearing Non-emergency contact: Primary Care Provider and Pony Roll Finisher Call non-emergency contact if: you have any medication questions, your symptoms worsen, your pain is not controlled, your pain is worsening, your pain is concerning for you, your wound has increased redness, your wound has increased drainage and your wound pain has increased Follow-up/Referrals: Hany Berrios M.D. [Primary Care Provider] - Diet: Heart Healthy Addtl Attending Provider Instructions: 1. Keep pressure dressing on your right wrist x 24 hour after being discharged, keep bandage dry. 2. Continue all of your current medications as prescribed. 3. Increase aerobic exercise program, progress as tolerated. 4. Follow-up appointment with [facility], Dr. Fatima 06/05/2020 at 2:30 p.m. Pending Studies at Discharge: No Stand-Alone Forms: My [facility] [employer], Work/School Release (Inpt) Medications and DC Order Prescriptions: Continued atorvastatin 40 mg Tablet 40 mg PO HS RF: 0 metoprolol succinate 50 mg Tablet Extended Release 24 Hr 50 mg PO QAM RF: 0 clopidogrel [Plavix] 75 mg Tablet 75 mg PO QAM RF: 0 aspirin [Aspirin Low Dose] 81 mg Tablet,Delayed Release (Dr/Ec) 81 mg PO QAM RF: 0 isosorbide mononitrate 60 mg tablet extended release 24 hr 60 mg PO QAM RF: 0 pantoprazole 40 mg tablet,delayed release (DR/EC) 40 mg PO QAM RF: 0 nitroglycerin 0.4 mg tablet, sublingual 0.4 mg sublingual DIRECTED PRN (Reason: Chest Pain) RF: 0 furosemide [Lasix] 40 mg Tablet 40 mg PO QAM RF: 0 topiramate [Topamax] 50 mg Tablet 50 mg PO BID RF: 0 Discharge Orders: Discharge Order (Routine); Ordered 05/28/20 Ordered By: Dashawn Rascon/Other Patient Handouts: CAD Admission Data Admit Date/Time: 05/28/20 09:02 Attending Provider: Bruno Bernardo Admit Provider: Bruno Bernardo Primary Care Provider: Hany Berrios Other Providers: Bruno Bernardo Other Interventions: Discharge Summary Assessment (RN) Last Done: 05/28/20 17:56 Coding Level of Care Code D/C Day Management >30 mins Diagnoses Chest pain R07.9 Chest pain type: unspecified History of [place] (myocardial infarction) I25.2 Hypertension I10 Hypertension type: unspecified Diastolic CHF, chronic I50.32 Morbid obesity with BMI of 50.0-59.9, adult E66.01; Z68.43 History of 2019 novel coronavirus disease (COVID-19) Z86.19
== END 2020-05-28 17:55 | disposition home or self-care (01) ==
LOC: EDINP 07:18 → ED 07:18 → EDINP 17:54

== ENCOUNTER 2020-08-01 05:50 | Inpatient (IN) ==
[2020-08-01 06:40] LABS: Basophils # (auto) 0.01 K/uL (0-0.2); Basophils % (auto) 0.2 %; Eosinophils # (auto) 0.73 K/uL (0-0.5); Eosinophils % (auto) 11.2 %; Hematocrit (blood only) 44.9 % (42-52); Hemoglobin 15.1 g/dL (14.0-18.0); Immature Granulocytes # (auto) 0.01 K/uL (0.00-0.02); Immature Granulocytes % (auto) 0.2 %; Lymphocytes # (auto) 0.83 K/uL (1.2-3.4); Lymphocytes % (auto) 12.7 %; Mean Corpuscular Hemoglobin 30.6 pg (25-34); Mean Corpuscular Hgb Conc 33.6 g/dL (32-36); Mean Corpuscular Volume 90.9 fL (80-100); Mean Platelet Volume 9.5 fL (7.4-10.4); Monocytes # (auto) 0.51 K/uL (0.11-0.59); Monocytes % (auto) 7.8 %; Neutrophils # (auto) 4.44 K/uL (1.4-6.5); Neutrophils % (auto) 67.9 %; Platelet Count 267 K/uL (130-400); RDW Coefficient of Variation 14.1 % (11.5-14.5); RDW Standard Deviation 47.2 fL (36.4-46.3); Red Blood Count 4.94 M/uL (4.7-6.1); White Blood Count 6.53 K/uL (4.8-10.8)
[2020-08-01] MEDS ORDERED: ceFAZolin 3,000 MG in DEXTROSE 5% 50 ML IV STA (06:43)
--- NOTE | 2020-08-01 06:49 | Emergency Department Note ---
History of Present Illness General Chief complaint: Leg Injury/Pain Stated complaint: CELLULITIS IN LEFT LEG - ACTING UP Time Seen by Provider: 08/01/20 06:30 Source: patient Mode of arrival: ambulatory Limitations: no limitations History of Present Illness Provider complaint: Left leg cellulitis Maximum Pain Intensity: 10 This is a 60-year-old male who presents to the ED with a chief complaint of left leg cellulitis. The patient states that he has some intermittent and chronic issues with problems with his left leg. He has chronic venous stasis and chronic venous insufficiency. The patient states that he has seen Dr. Fatima for the symptoms in the past. Over the past couple of days he has noticed increasing redness and drainage from the wounds from his leg. He is concerned about cellulitis. Denies any fevers. No nausea vomiting. Has not taken anything for the symptoms. He does report increased pain in the leg as well related to the cellulitis. Home Medications Medication Instructions Recorded Confirmed Type aspirin [Aspirin Low Dose] 81 mg PO QAM 04/26/18 08/01/20 History atorvastatin 40 mg PO HS 04/26/18 08/01/20 History clopidogrel [Plavix] 75 mg PO QAM 04/26/18 08/01/20 History metoprolol succinate 50 mg PO QAM 04/26/18 08/01/20 History isosorbide mononitrate 60 mg PO QAM 05/16/19 08/01/20 History topiramate [Topamax] 50 mg PO BID 05/20/19 08/01/20 History nitroglycerin 0.4 mg SUBLINGUAL DIRECTED PRN 10/10/19 08/01/20 History pantoprazole 40 mg PO QAM 10/10/19 08/01/20 History furosemide 40 mg PO DAILY 08/01/20 08/01/20 History Allergies Allergy/AdvReac Type Severity Reaction Status Date / Time latex Allergy Mild RASH Verified 08/01/20 06:11 Past Med/Surg History Medical History (Updated 08/01/20 @ 07:34 by Lavelle Butts DO) Acute bronchitis CAD (coronary artery disease) Chest pain Chronic cough Chronic venous insufficiency Diastolic CHF, chronic Essential hypertension Heart attack History of [place] (myocardial infarction) Hyperlipidemia Hypertension Morbid obesity with BMI of 50.0-59.9, adult Nonsustained ventricular tachycardia Obesity Pre-diabetes Surgical History H/O heart artery stent Family History Unknown Stroke Aortic aneurysm Diabetes Social History Smoking Status: Never smoker Second Hand Exposure: No; Hx Alcohol Use: No Hx Substance Use: No Preferred Language: Faroese Communication Ability: Effective Manager Of Housekeeping 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: No Beliefs That Will Affect Care: None marital status: Current Living Situation: Spouse Feels Safe at Home: Yes Assistive Devices: Glasses Review of Systems A total of 10 systems reviewed and were otherwise negative Physical Exam Vital Signs Vital Signs - 24 hr 08/01/20 05:57 08/01/20 07:10 08/01/20 07:16 Temperature 36.5 C 36.6 C Temperature Source Oral Oral Pulse Rate 74 Pulse Rate [Apical] 80 Respiratory Rate 20 18 Respiratory Effort / Characteristics Non-Labored Respiratory Depth Normal Blood Pressure 175/78 H Blood Pressure [Right Arm] 134/70 Blood Pressure Mean 110 Blood Pressure Mean [Right Arm] 91 Pulse Oximetry 98 97 Oxygen Delivery Method Room Air Room Air Sepsis Recent Fever Within 48 Hours No Sepsis New/Unexplained Change in Mental Status N/A Sepsis Action Taken by Nursing No Action Required CONSTITUTIONAL/VITAL SIGNS: Reviewed / noted above. GENERAL: Non-toxic in appearance. INTEGUMENTARY: Warm, dry, and [employer]. HEAD: Normocephalic. EYES: without scleral icterus or trauma. ENT/OROPHARYNX: clear and moist. LYMPHADENOPATHY/NECK: Is supple without lymphadenopathy or meningismus. RESPIRATORY: Lungs clear and equal. CARDIOVASCULAR: Regular rate and rhythm. GI/ABDOMEN: Soft and nontender. No organomegaly or pulsatile mass. No rebound or guarding. Normal bowel sounds. EXTREMITIES: Warm and well perfused. The left lower extremity is erythematous with some serous weeping. There is also some open ulcerations. The erythema is circumferential and involves nearly the entire leg from just below the knee to the ankle. BACK: No CVA tenderness. NEUROLOGICAL: Intact without focal deficits. PSYCHIATRIC: normal affect. MUSCULOSKELETAL: Normally developed with good muscle tone. TRIAGE NURSING DOCUMENTATION REVIEWED. Course Administered Medications Discontinued Medications Cefazolin Sodium 3,000 mg/ (Dextrose) 72.5 mls @ 145 mls/hr IV NOW STA Stop: 08/01/20 07:12 Last Admin: 08/01/20 07:08 Dose: 145 mls/hr Documented by: [id number] Morphine Sulfate (Morphine Sulfate 2 Mg/Ml Carp) 2 mg IV NOW STA Stop: 08/01/20 06:54 Last Admin: 08/01/20 07:13 Dose: 2 mg Documented by: [id number] Medical Decision Making Differential Diagnosis Cellulitis, abscess, MRSA infection, DVT, necrotizing fasciitis, dermatitis, drug eruption, allergic reaction, as well as other pathologies. Medical Records Attestation: I reviewed the patient's medical records. Home Medications Current Medication List: was personally reviewed by me Laboratory Data Attestation: I reviewed the patient's lab results. Result diagrams: 08/01/20 06:15 08/01/20 06:15 Lab Results 08/01/20 08/01/20 Range/Units 06:15 06:15 WBC 6.53 (4.8-10.8) K/uL RBC 4.94 (4.7-6.1) M/uL Hgb 15.1 (14.0-18.0) g/dL Hct 44.9 (42-52) % MCV 90.9 (80-100) fL MCH 30.6 (25-34) pg MCHC 33.6 (32-36) g/dL RDW Std Deviation 47.2 H (36.4-46.3) fL RDW Coeff of [place] 14.1 (11.5-14.5) % Plt Count 267 (130-400) K/uL MPV 9.5 (7.4-10.4) fL Immature Gran % (Auto) 0.2 % Neut % (Auto) 67.9 % Lymph % (Auto) 12.7 % [place] % (Auto) 7.8 % Eos % (Auto) 11.2 % Baso % (Auto) 0.2 % Neut # (Auto) 4.44 (1.4-6.5) K/uL Lymph # (Auto) 0.83 L (1.2-3.4) K/uL [place] # (Auto) 0.51 (0.11-0.59) K/uL Eos # (Auto) 0.73 H (0-0.5) K/uL Baso # (Auto) 0.01 (0-0.2) K/uL Immature Gran # (Auto) 0.01 (0.00-0.02) K/uL Sodium 141 (136-145) mmol/L Potassium 3.6 (3.5-5.1) mmol/L Chloride 110 H (98-107) mmol/L Carbon Dioxide 24 (21-32) mmol/L Anion Gap 6.0 (3-11) BUN 10 (7-18) mg/dl Creatinine 1.02 (0.6-1.4) mg/dl Est Cr Clr Drug Dosing 123.5 ml/min Est GFR ( Amer) 91.5 Est GFR (Non-Af Amer) 79.0 BUN/Creatinine Ratio 10.0 (10-20) Glucose 116 H (70-99) mg/dl Calcium 8.6 (8.5-10.1) mg/dl Total Bilirubin 0.6 (0.2-1) mg/dl AST 12 L (15-37) U/L ALT 24 (12-78) U/L Alkaline Phosphatase 106 (45-117) U/L Total Protein 6.4 (6.4-8.2) gm/dl Albumin 3.4 (3.4-5.0) gm/dl Globulin 3.0 (2.5-4.0) gm/dl Albumin/Globulin Ratio 1.1 (0.9-2) MDM Narrative Patient presents with a recurrent cellulitis to the left lower extremity. White blood cell count today is 6.53. The patient's chemistry panel was unremarkable. The patient was treated with IV Ancef here as well as IV morphine for his discomfort. He will be seen by the hospitalist service for further inpatient evaluation and care. Impression & Plan Cellulitis of left leg Discharge Plan Visit Data Chief Complaint: Leg Injury/Pain Stated Complaint: CELLULITIS IN LEFT LEG - ACTING UP ED Provider: Lavelle Butts Discharge Problem: Cellulitis of left leg Patient Disposition: Being Evaluated by Hospitalist Forms Stand Alone Forms: [facility] Prescriptions Prescriptions: No Action atorvastatin 40 mg Tablet 40 mg PO HS RF: 0 metoprolol succinate 50 mg Tablet Extended Release 24 Hr 50 mg PO QAM RF: 0 clopidogrel [Plavix] 75 mg Tablet 75 mg PO QAM RF: 0 aspirin [Aspirin Low Dose] 81 mg Tablet,Delayed Release (Dr/Ec) 81 mg PO QAM RF: 0 isosorbide mononitrate 60 mg tablet extended release 24 hr 60 mg PO QAM RF: 0 pantoprazole 40 mg tablet,delayed release (DR/EC) 40 mg PO QAM RF: 0 nitroglycerin 0.4 mg tablet, sublingual 0.4 mg sublingual DIRECTED PRN (Reason: Chest Pain) RF: 0 furosemide 40 mg tablet 40 mg PO DAILY RF: 0 topiramate [Topamax] 50 mg Tablet 50 mg PO BID RF: 0 Referrals Referrals: Hany Berrios MD [Primary Care Provider] -
[2020-08-01 06:50] LABS: Albumin Level 3.4 gm/dl (3.4-5.0); Calcium 8.6 mg/dl (8.5-10.1); Creatinine Clr Calc Pharmacy 123.5 ml/min; Est GFR (African American) 91.5; Potassium 3.6 mmol/L (3.5-5.1)
[2020-08-01 06:52] LABS: Albumin Globulin Ratio 1.1 (0.9-2); Bilirubin,Total 0.6 mg/dl (0.2-1); Total Protein 6.4 gm/dl (6.4-8.2)
[2020-08-01] MEDS ORDERED: MoRPHine SULFATE 2 MG/ML CARP IV STA (06:53)
--- NOTE | 2020-08-01 07:59 | History & Physical Report ---
Date of Service August 01, 2020 Assessment & Plan (1) Cellulitis of left leg: cellulitis, no signs of sepsis entire lower left leg, circumferential with open blisters, venous stasis ulcers suspect this will require several weeks of antibiotics will start on Daptomycin and add Zosyn for Pseudomonas potential ask RN to obtain superficial wound culture blood cultures drawn WBC normal, no fever, vitals stable follow for clinical improvement, check labs in AM (2) Venous stasis ulcer of left lower extremity: open wounds, shallow ask purchasing engineer to assess, provide recommendations for topical therapy (3) Hypertension: continue Imdur, Metoprolol, Lasix BP mildly elevated, follow (4) Diastolic CHF, chronic: examines euvolemic except he has some lymphedema in left leg continue Lasix, Imdur, metoprolol (5) Chronic venous insufficiency: (6) Morbid obesity with BMI of 50.0-59.9, adult: educated on weight loss benefits (7) CAD (coronary artery disease): no chest pain reported continue aspirin, Plavix, metoprolol, Imdur (8) Pre-diabetes: low carb diet History of Present Illness Chief Complaint: my left leg hurts Primary Care Provider: Hany Berrios MD 60 yo male with obesity, venous insufficiency, h/o cellulitis presents with several days of worsening redness, pain, swelling and now weeping of left leg. He says that he has had cellulitis of the left leg before, most recently was about 1.5 years ago. He says he noted some increased swelling and redness a few days ago. He denies any scratches/breaks in the skin surface, no cat or dog scratches/bites to the region. The pain and swelling increased, he had low grade temperature. He came to the ED this morning because he was afraid he had cellulitis. Vitals stable, WBC normal, CR normal and electrolytes stable. Clearly had signs of cellulitis, admission requested for IV antibiotics. Allergies Allergy/AdvReac Type Severity Reaction Status Date / Time latex Allergy Mild RASH Verified 08/01/20 06:11 Home Medications Medication Instructions Recorded Confirmed Type aspirin [Aspirin Low Dose] 81 mg PO QAM 04/26/18 08/01/20 History atorvastatin 40 mg PO HS 04/26/18 08/01/20 History clopidogrel [Plavix] 75 mg PO QAM 04/26/18 08/01/20 History metoprolol succinate 50 mg PO QAM 04/26/18 08/01/20 History isosorbide mononitrate 60 mg PO QAM 05/16/19 08/01/20 History topiramate [Topamax] 50 mg PO BID 05/20/19 08/01/20 History nitroglycerin 0.4 mg SUBLINGUAL DIRECTED PRN 10/10/19 08/01/20 History pantoprazole 40 mg PO QAM 10/10/19 08/01/20 History furosemide 40 mg PO DAILY 08/01/20 08/01/20 History Past Med/Surg History Medical History Acute bronchitis CAD (coronary artery disease) Chest pain Chronic cough Chronic venous insufficiency Diastolic CHF, chronic Essential hypertension Heart attack History of [place] (myocardial infarction) Hyperlipidemia Hypertension Morbid obesity with BMI of 50.0-59.9, adult Nonsustained ventricular tachycardia Obesity Pre-diabetes Surgical History H/O heart artery stent Family History Unknown Stroke Aortic aneurysm Diabetes Social History Smoking Status: Never smoker Second Hand Exposure: No; Hx Alcohol Use: Yes Alcohol type: beer Hx Substance Use: No Preferred Language: Martiniquais Communication Ability: Effective 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 Lift Rigger Required: No Beliefs That Will Affect Care: None marital status: Current Living Situation: Spouse Other Information That Helps Us Care for You: No Feels Safe at Home: Yes Safety Concerns: Feels Safe At This Time Assistive Devices: None Review of Systems Review of Systems: All systems reviewed & are unremarkable except as noted in HPI & below Constitutional: no fever, no chills, no sweats, no fatigue and no weakness Respiratory: no cough, no dyspnea and no wheezing Cardiovascular: + edema (left leg); no chest pain, no chest pain at rest, no dyspnea, no palpitations, no lightheadedness, no syncope and no claudication Gastrointestinal: no abdominal pain, no nausea, no vomiting, no constipation and no diarrhea/loose stools Genitourinary: no dysuria, no difficulty urinating and no urinary frequency Musculoskeletal: no back pain, no joint pain, no stiffness and no myalgia Integumentary: + skin ulcer (venous stasis ulcers left leg), + erythema (left lower leg), + urticaria (left leg itches) and + skin swelling Neurologic: no unsteadiness, no tremor(s), no seizure-like activity, no dizziness, no headache(s) and no confusion Physical Exam Constitutional: well developed, well nourished, + morbidly obese and comfortable; no acute distress Eyes: PERRL, conjunctivae normal, anicteric sclerae ENMT: external ear and nose normal, oropharynx normal Neck: trachea midline, no thyromegaly + thick neck Respiratory: normal respiratory effort, lungs clear to auscultation Cardiovascular: RRR, no murmur, no edema Gastrointestinal (Abdomen): normal bowel sounds, soft, nontender, no hepatosplenomegaly Musculoskeletal: no cyanosis or clubbing, extremities motor strength 5/5 Skin: + ulcer (venous stasis ulcers left lower leg, weeping of yellow fluid) and + erythema (left lower leg, warm, tender to palpation) Neurologic: patellar DTR's 2+ bilat, sensation intact and PERRL, EOMI, accommodation nl, no face palsy, no dysarthria Psychiatric: A+Ox3, euthymic affect Lymphatic: + lymphedema (left lower leg); no lymphadenopathy Results & Data Results & Data ([facility]) Vital Signs (Past 12 Hours) Vital Signs Temp Pulse Pulse Resp BP BP Pulse Ox 08/01/20 07:16 36.6 C 08/01/20 07:10 80 18 134/70 97 08/01/20 05:57 36.5 C 74 20 175/78 H 98 Laboratory Results Laboratory Results - last 24 hr 08/01/20 08/01/20 06:15 06:15 WBC 6.53 RBC 4.94 Hgb 15.1 Hct 44.9 MCV 90.9 MCH 30.6 MCHC 33.6 RDW Std Deviation 47.2 H RDW Coeff of [place] 14.1 Plt Count 267 MPV 9.5 Immature Gran % (Auto) 0.2 Neut % (Auto) 67.9 Lymph % (Auto) 12.7 [place] % (Auto) 7.8 Eos % (Auto) 11.2 Baso % (Auto) 0.2 Neut # (Auto) 4.44 Lymph # (Auto) 0.83 L [place] # (Auto) 0.51 Eos # (Auto) 0.73 H Baso # (Auto) 0.01 Immature Gran # (Auto) 0.01 Sodium 141 Potassium 3.6 Chloride 110 H Carbon Dioxide 24 Anion Gap 6.0 BUN 10 Creatinine 1.02 Est Cr Clr Drug Dosing 123.5 Est GFR ( Amer) 91.5 Est GFR (Non-Af Amer) 79.0 BUN/Creatinine Ratio 10.0 Glucose 116 H Calcium 8.6 Total Bilirubin 0.6 AST 12 L ALT 24 Alkaline Phosphatase 106 Total Protein 6.4 Albumin 3.4 Globulin 3.0 Albumin/Globulin Ratio 1.1 Code Status & VTE Plan VTE Prophylaxis Plan VTE Prophylaxis will be ordered: Yes PG Care Time/CCT Total # of Minutes Spent Total Time Spent with Patient: Total time spent is greater than 50% in coordination of care (as documented) at patient's floor/unit and/or counseling patient: Coding Level of Care Code 09217 OBS Care - Level 3 Diagnoses Cellulitis of left leg L03.116 Venous stasis ulcer of left lower extremity I83.029; L97.929 Hypertension I10 Hypertension type: unspecified Diastolic CHF, chronic I50.32 Chronic venous insufficiency I87.2 Morbid obesity with BMI of 50.0-59.9, adult E66.01; Z68.43 CAD (coronary artery disease) I25.10 Coronary Disease-Associated Artery/Lesion type: [place] artery [place] vs. transplanted heart: [place] heart Associated angina: angina presence unspecified Pre-diabetes R73.03 (1) Hypertension Hypertension type: unspecified Qualified Code(s): I10 - Essential (primary) hypertension (2) CAD (coronary artery disease) Coronary Disease-Associated Artery/Lesion type: [place] artery [place] vs. transplanted heart: [place] heart Associated angina: angina presence unspecified Qualified Code(s): I25.10 - Atherosclerotic heart disease of [place] coronary artery without angina pectoris
[2020-08-01] MEDS ORDERED: ONDANSETRON INJ 2 MG/ML 2 ML VIAL IV PRN (10:39)
[2020-08-01] MEDS ORDERED: DAPTOmycin 450 MG in SYRINGE 0 ML IV ONE (11:15)
[2020-08-01] MEDS ORDERED: PIPERACILL/TAZOBAC CONSULT ACTIVE PRN (11:24)
[2020-08-01] MEDS: traMADol HCL 50 MG TABLET PO PRN ×2 (11:34→18:46)
[2020-08-01] MEDS: diphenhydrAMINE Capsule 25 MG CAP PO PRN (11:35)
[2020-08-01] MEDS ORDERED: PIPERACILLIN/TAZOBACTAM 4.5 GM in DEXTROSE 5% 100 ML IV ONE (11:45)
[2020-08-01] MEDS: ENOXAPARIN INJ 40 MG/0.4 ML SYR SQ SCH ×2 (12:56→21:17)
[2020-08-01] MEDS: FUROSEMIDE 40 MG TAB PO SCH (12:57)
[2020-08-01] MEDS: METOPROLOL SUCC 50MG EXT REL TAB PO SCH (12:57)
[2020-08-01] MEDS: TOPIRAMATE 50 MG TAB PO SCH ×2 (12:57→21:18)
[2020-08-01] MEDS: CLOPIDOGREL BISULFATE 75 MG TAB PO SCH (12:57)
[2020-08-01] MEDS: PANTOprazole 40 MG TAB PO SCH (12:57)
[2020-08-01] MEDS: ISOSORBIDE MONO EXTENDED REL 60 MG TABCR PO SCH (12:57)
[2020-08-01] MEDS: ASPIRIN 81 MG ECTAB PO SCH (12:57)
[2020-08-01] MEDS: ACETAMINOPHEN 325 MG TAB PO PRN ×2 (14:14→18:47)
[2020-08-01] MEDS ORDERED: HYDROmorphone INJ 0.5 MG/0.5 ML SYR IV STA (14:41)
[2020-08-01] MEDS: PIPERACILLIN/TAZOBACTAM 4.5 GM in DEXTROSE 5% 100 ML IV SCH (17:16)
[2020-08-02] MEDS: PIPERACILLIN/TAZOBACTAM 4.5 GM in DEXTROSE 5% 100 ML IV SCH ×3 (01:43→18:06)
[2020-08-02] MEDS: traMADol HCL 50 MG TABLET PO PRN ×4 (05:46→19:27)
[2020-08-02 06:01] LABS: Hematocrit (blood only) 41.2 % (42-52); Hemoglobin 13.7 g/dL (14.0-18.0); Mean Corpuscular Hemoglobin 30.1 pg (25-34); Mean Corpuscular Hgb Conc 33.3 g/dL (32-36); Mean Corpuscular Volume 90.5 fL (80-100); Mean Platelet Volume 9.4 fL (7.4-10.4); Platelet Count 212 K/uL (130-400); RDW Coefficient of Variation 14.1 % (11.5-14.5); RDW Standard Deviation 46.5 fL (36.4-46.3); Red Blood Count 4.55 M/uL (4.7-6.1); White Blood Count 5.79 K/uL (4.8-10.8)
[2020-08-02 06:28] LABS: BUN Creatinine Ratio 13.4 (10-20); Calcium 7.8 mg/dl (8.5-10.1); Creatinine Clr Calc Pharmacy 136.6 ml/min; Est GFR (African American) 98.5; Potassium 3.6 mmol/L (3.5-5.1)
[2020-08-02] MEDS: ACETAMINOPHEN 325 MG TAB PO PRN (08:10)
[2020-08-02] MEDS: PANTOprazole 40 MG TAB PO SCH (08:11)
[2020-08-02] MEDS: FUROSEMIDE 40 MG TAB PO SCH (08:11)
[2020-08-02] MEDS: METOPROLOL SUCC 50MG EXT REL TAB PO SCH (08:11)
[2020-08-02] MEDS: TOPIRAMATE 50 MG TAB PO SCH ×2 (08:11→21:31)
[2020-08-02] MEDS: ENOXAPARIN INJ 40 MG/0.4 ML SYR SQ SCH ×2 (08:11→21:31)
[2020-08-02] MEDS: ASPIRIN 81 MG ECTAB PO SCH (08:11)
[2020-08-02] MEDS: CLOPIDOGREL BISULFATE 75 MG TAB PO SCH (08:11)
[2020-08-02] MEDS: ISOSORBIDE MONO EXTENDED REL 60 MG TABCR PO SCH (08:11)
--- NOTE | 2020-08-02 12:30 | Hospitalist Progress Note ---
Date of Service August 02, 2020 Assessment & Plan (1) Cellulitis of left leg: cellulitis, no signs of sepsis entire lower left leg, circumferential with open blisters, venous stasis ulcers suspect this will require several weeks of antibiotics continue Daptomycin and Zosyn for today, likely taper to just Daptomycin after another day follow up on wound culture no blood cultures drawn WBC still normal, no fever, vitals stable add Dilaudid PRN for pain change to full admission (2) Venous stasis ulcer of left lower extremity: open wounds, shallow ask caterer's aide to assess, provide recommendations for topical therapy (3) Hypertension: continue Imdur, Metoprolol, Lasix BP stable today (4) Diastolic CHF, chronic: examines euvolemic except he has some lymphedema in left leg continue Lasix, Imdur, metoprolol (5) Chronic venous insufficiency: (6) Morbid obesity with BMI of 50.0-59.9, adult: educated on weight loss benefits (7) CAD (coronary artery disease): no chest pain reported continue aspirin, Plavix, metoprolol, Imdur (8) Pre-diabetes: low carb diet Admission and Anticipated Discharge Date Admission Date: August 01, 2020 Subjective patient's main issue is pain in the left leg, itches a lot no relief with the Ultram he is eating well, no fever/chills, no dyspnea, no chest pain labs today show WBC normal, Cr and electrolytes stable no growth yet on skin culture, prior cultures grew out MSSA Review of Systems Review of Systems: All systems reviewed & are unremarkable except as noted in Subjective Physical Exam Constitutional: well developed, well nourished, + morbidly obese and comfortable; no acute distress Eyes: PERRL, conjunctivae normal, anicteric sclerae ENMT: external ear and nose normal, oropharynx normal Neck: trachea midline, no thyromegaly + thick neck Respiratory: normal respiratory effort, lungs clear to auscultation Cardiovascular: RRR, no murmur, no edema Gastrointestinal (Abdomen): normal bowel sounds, soft, nontender, no hepatosplenomegaly Musculoskeletal: no cyanosis or clubbing, extremities motor strength 5/5 Skin: + ulcer (venous stasis ulcers left lower leg, weeping of yellow fluid) and + erythema (left lower leg, warm, tender to palpation) Neurologic: patellar DTR's 2+ bilat, sensation intact and PERRL, EOMI, accommodation nl, no face palsy, no dysarthria Psychiatric: A+Ox3, euthymic affect Lymphatic: + lymphedema (left lower leg); no lymphadenopathy Results & Data Results & Data ([facility]) Vital Signs (Past 12 Hours) Vital Signs Temp Pulse Resp BP Pulse Ox 08/02/20 08:05 65 08/02/20 07:19 36.6 C 59 L 16 126/67 98 Laboratory Results Laboratory Results - last 24 hr 08/02/20 08/02/20 05:30 05:30 WBC 5.79 RBC 4.55 L Hgb 13.7 L Hct 41.2 L MCV 90.5 MCH 30.1 MCHC 33.3 RDW Std Deviation 46.5 H RDW Coeff of [place] 14.1 Plt Count 212 MPV 9.4 Sodium 139 Potassium 3.6 Chloride 107 Carbon Dioxide 26 Anion Gap 6.0 BUN 13 Creatinine 0.96 Est Cr Clr Drug Dosing 136.6 Est GFR ( Amer) 98.5 Est GFR (Non-Af Amer) 85.0 BUN/Creatinine Ratio 13.4 Glucose 126 H Calcium 7.8 L Medications Administered Current Inpatient Medications Acetaminophen (Acetaminophen 325 Mg Tab) 650 mg PO Q4H PRN PRN Reason: pain/fever Stop: 08/31/20 10:38 Last Admin: 08/02/20 08:10 Dose: 650 mg Documented by: Aspirin (Aspirin 81 Mg Ectab) 81 mg PO [facility] Stop: 08/31/20 10:38 Last Admin: 08/02/20 08:11 Dose: 81 mg Documented by: Clopidogrel Bisulfate (Clopidogrel Bisulfate 75 Mg Tab) 75 mg PO [facility] Stop: 08/31/20 10:38 Last Admin: 08/02/20 08:11 Dose: 75 mg Documented by: Diphenhydramine HCl (Diphenhydramine Capsule 25 Mg Cap) 25 mg PO Q8 PRN PRN Reason: Itching Stop: 08/31/20 11:23 Last Admin: 08/01/20 11:35 Dose: 25 mg Documented by: Enoxaparin Sodium (Enoxaparin Inj 40 Mg/0.4 Ml Syr) 40 mg SQ Q12 [facility] Stop: 08/31/20 10:59 Last Admin: 08/02/20 08:11 Dose: 40 mg Documented by: Furosemide (Furosemide 40 Mg Tab) 40 mg PO DAILY [facility] Stop: 08/31/20 10:38 Last Admin: 08/02/20 08:11 Dose: 40 mg Documented by: Piperacillin Sod/Tazobactam (Sod 4.5 gm/ Dextrose) 120 mls @ 30 mls/hr IV Q8H [facility]; Protocol Stop: 08/08/20 11:59 Last Admin: 08/02/20 09:49 Dose: 30 mls/hr Documented by: Daptomycin 475 mg/ Syringe 9.5 mls @ 4.75 mls/min IV Q24H [facility]; Protocol Stop: 08/08/20 13:59 Isosorbide Mononitrate (Isosorbide [place] Extended Rel 60 Mg Tabcr) 60 mg PO [facility] Stop: 08/31/20 10:38 Last Admin: 08/02/20 08:11 Dose: 60 mg Documented by: Metoprolol Succinate (Metoprolol Succ 50mg Ext Rel Tab) 50 mg PO [facility] Stop: 08/31/20 10:38 Last Admin: 08/02/20 08:11 Dose: 50 mg Documented by: Miscellaneous Information (Daptomycin Consult Active) 1 ea N/A UD PRN PRN Reason: Consult Stop: 08/31/20 10:38 Miscellaneous Information (Piperacill/Tazobac Consult Active) 1 ea N/A UD PRN PRN Reason: Consult Stop: 08/31/20 11:23 Ondansetron HCl (Ondansetron Inj 2 Mg/Ml 2 Ml Vial) 4 mg IV Q6H PRN PRN Reason: Nausea Stop: 08/31/20 10:38 Pantoprazole Sodium (Pantoprazole 40 Mg Tab) 40 mg PO [facility] Stop: 08/31/20 10:38 Last Admin: 08/02/20 08:11 Dose: 40 mg Documented by: Topiramate (Topiramate 50 Mg Tab) 50 mg PO BID [facility] Stop: 08/31/20 10:38 Last Admin: 08/02/20 08:11 Dose: 50 mg Documented by: Tramadol HCl (Tramadol Hcl 50 Mg Tablet) 50 mg PO Q4H PRN PRN Reason: Pain Stop: 08/31/20 11:23 Last Admin: 08/02/20 09:50 Dose: 50 mg Documented by: PG Care Time/CCT Total # of Minutes Spent Total Time Spent with Patient: Total time spent is greater than 50% in coordination of care (as documented) at patient's floor/unit and/or counseling patient: Coding Level of Care Code 76803 Subseq Hosp Care Lvl 2 Diagnoses Cellulitis of left leg L03.116 Venous stasis ulcer of left lower extremity I83.029; L97.929 Hypertension I10 Hypertension type: unspecified Diastolic CHF, chronic I50.32 Chronic venous insufficiency I87.2 Morbid obesity with BMI of 50.0-59.9, adult E66.01; Z68.43 CAD (coronary artery disease) I25.10 Coronary Disease-Associated Artery/Lesion type: [place] artery [place] vs. transplanted heart: [place] heart Associated angina: angina presence unspecified Pre-diabetes R73.03 (1) Hypertension Hypertension type: unspecified Qualified Code(s): I10 - Essential (primary) hypertension (2) CAD (coronary artery disease) Coronary Disease-Associated Artery/Lesion type: [place] artery [place] vs. transplanted heart: [place] heart Associated angina: angina presence unspecified Qualified Code(s): I25.10 - Atherosclerotic heart disease of [place] coronary artery without angina pectoris
[2020-08-02] MEDS: DAPTOmycin 475 MG in SYRINGE 0 ML IV SCH (14:08)
[2020-08-02] MEDS: HYDROmorphone INJ 0.5 MG/0.5 ML SYR IV PRN ×2 (15:25→23:37)
[2020-08-03] MEDS: PIPERACILLIN/TAZOBACTAM 4.5 GM in DEXTROSE 5% 100 ML IV SCH ×2 (02:18→08:56)
[2020-08-03] MEDS: traMADol HCL 50 MG TABLET PO PRN ×3 (03:28→21:58)
[2020-08-03] MEDS: TOPIRAMATE 50 MG TAB PO SCH ×2 (08:49→20:03)
[2020-08-03] MEDS: FUROSEMIDE 40 MG TAB PO SCH (08:49)
[2020-08-03] MEDS: ASPIRIN 81 MG ECTAB PO SCH (08:49)
[2020-08-03] MEDS: ISOSORBIDE MONO EXTENDED REL 60 MG TABCR PO SCH (08:49)
[2020-08-03] MEDS: ENOXAPARIN INJ 40 MG/0.4 ML SYR SQ SCH ×2 (08:50→20:04)
[2020-08-03] MEDS: PANTOprazole 40 MG TAB PO SCH (08:50)
[2020-08-03] MEDS: CLOPIDOGREL BISULFATE 75 MG TAB PO SCH (08:50)
[2020-08-03] MEDS: METOPROLOL SUCC 50MG EXT REL TAB PO SCH (08:50)
[2020-08-03] MEDS: diphenhydrAMINE Capsule 25 MG CAP PO PRN (08:56)
[2020-08-03] MEDS: HYDROmorphone INJ 0.5 MG/0.5 ML SYR IV PRN ×2 (11:55→21:07)
[2020-08-03] MEDS: DAPTOmycin 475 MG in SYRINGE 0 ML IV SCH (13:45)
[2020-08-03] MEDS: ACETAMINOPHEN 325 MG TAB PO PRN ×2 (13:50→21:58)
--- NOTE | 2020-08-03 13:54 | Hospitalist Progress Note ---
Date of Service August 03, 2020 Assessment & Plan (1) Cellulitis of left leg: cellulitis, no signs of sepsis entire lower left leg, circumferential with open blisters, venous stasis ulcers suspect this will require several weeks of antibiotics, continue IV antibiotics through the weekend stop Daptomycin after today, stop Zosyn change to Ancef 1gm q8, Cipro 500mg PO BID follow up on wound culture - no growth no blood cultures drawn WBC still normal, no fever, vitals stable add Dilaudid PRN for pain change to full admission, keep through the weekend (2) Venous stasis ulcer of left lower extremity: open wounds, shallow 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 feed mill supervisor to assess, provide recommendations for topical therapy apply Aquacel, kerlix, foam dressing every day as needed (3) Hypertension: continue Imdur, Metoprolol, Lasix BP stable today (4) Diastolic CHF, chronic: examines euvolemic except he has some lymphedema in left leg continue Lasix, Imdur, metoprolol (5) Chronic venous insufficiency: (6) Morbid obesity with BMI of 50.0-59.9, adult: educated on weight loss benefits (7) CAD (coronary artery disease): no chest pain reported continue aspirin, Plavix, metoprolol, Imdur (8) Pre-diabetes: low carb diet Admission and Anticipated Discharge Date Admission Date: August 02, 2020 Physical Exam Constitutional: well developed, well nourished, + morbidly obese and comfortable; no acute distress Eyes: PERRL, conjunctivae normal, anicteric sclerae ENMT: external ear and nose normal, oropharynx normal Neck: trachea midline, no thyromegaly + thick neck Respiratory: normal respiratory effort, lungs clear to auscultation Cardiovascular: RRR, no murmur, no edema Gastrointestinal (Abdomen): normal bowel sounds, soft, nontender, no hepatosplenomegaly Musculoskeletal: no cyanosis or clubbing, extremities motor strength 5/5 Skin: + ulcer (venous stasis ulcers left lower leg, weeping of yellow fluid) and + erythema (left lower leg, warm, tender to palpation) Neurologic: patellar DTR's 2+ bilat, sensation intact and PERRL, EOMI, accommodation nl, no face palsy, no dysarthria Psychiatric: A+Ox3, euthymic affect Lymphatic: + lymphedema (left lower leg); no lymphadenopathy Results & Data Results & Data ([facility]) Vital Signs (Past 12 Hours) Vital Signs Temp Pulse Resp BP Pulse Ox 08/03/20 07:14 36.4 C L 62 16 121/75 97 Laboratory Results Microbiology 08/01/20 Unknown Leg,Left Gram Stain - Final 08/01/20 Unknown Leg,Left Wound Culture - Final Low counts mixed probable skin microbiota. No further identifications or sensitivities to follow. Medications Administered Current Inpatient Medications Acetaminophen (Acetaminophen 325 Mg Tab) 650 mg PO Q4H PRN PRN Reason: pain/fever Stop: 08/31/20 10:38 Last Admin: 08/03/20 13:50 Dose: 650 mg Documented by: Aspirin (Aspirin 81 Mg Ectab) 81 mg PO QAM [facility] Stop: 08/31/20 10:38 Last Admin: 08/03/20 08:49 Dose: 81 mg Documented by: Clopidogrel Bisulfate (Clopidogrel Bisulfate 75 Mg Tab) 75 mg PO QAM [facility] Stop: 08/31/20 10:38 Last Admin: 08/03/20 08:50 Dose: 75 mg Documented by: Diphenhydramine HCl (Diphenhydramine Capsule 25 Mg Cap) 25 mg PO Q8 PRN PRN Reason: Itching Stop: 08/31/20 11:23 Last Admin: 08/03/20 08:56 Dose: 25 mg Documented by: Enoxaparin Sodium (Enoxaparin Inj 40 Mg/0.4 Ml Syr) 40 mg SQ Q12 [facility] Stop: 08/31/20 10:59 Last Admin: 08/03/20 08:50 Dose: 40 mg Documented by: Furosemide (Furosemide 40 Mg Tab) 40 mg PO DAILY [facility] Stop: 08/31/20 10:38 Last Admin: 08/03/20 08:49 Dose: 40 mg Documented by: Hydromorphone HCl (Hydromorphone Inj 0.5 Mg/0.5 Ml Syr) 0.5 mg IV Q4 PRN PRN Reason: Pain Stop: 08/16/20 12:34 Last Admin: 08/03/20 11:55 Dose: 0.5 mg Documented by: Piperacillin Sod/Tazobactam (Sod 4.5 gm/ Dextrose) 120 mls @ 30 mls/hr IV Q8H [facility]; Protocol Stop: 08/08/20 11:59 Last Infusion: 08/03/20 12:56 Dose: Infused Documented by: Daptomycin 475 mg/ Syringe 9.5 mls @ 4.75 mls/min IV Q24H [facility]; Protocol Stop: 08/08/20 13:59 Last Admin: 08/03/20 13:45 Dose: 4.75 mls/min Documented by: Isosorbide Mononitrate (Isosorbide [place] Extended Rel 60 Mg Tabcr) [facility]: 08/31/20 10:38 Last Admin: 08/03/20 08:49 Dose: 60 mg Documented by: Metoprolol Succinate (Metoprolol Succ 50mg Ext Rel Tab) [facility] Stop: 08/31/20 10:38 Last Admin: 08/03/20 08:50 Dose: 50 mg Documented by: Miscellaneous Information (Daptomycin Consult Active) 1 ea N/A UD PRN PRN Reason: Consult Stop: 08/31/20 10:38 Miscellaneous Information (Piperacill/Tazobac Consult Active) 1 ea N/A UD PRN PRN Reason: Consult Stop: 08/31/20 11:23 Ondansetron HCl (Ondansetron Inj 2 Mg/Ml 2 Ml Vial) 4 mg IV Q6H PRN PRN Reason: Nausea Stop: 08/31/20 10:38 Pantoprazole Sodium (Pantoprazole 40 Mg Tab) [facility] Stop: 08/31/20 10:38 Last Admin: 08/03/20 08:50 Dose: 40 mg Documented by: Topiramate (Topiramate 50 Mg Tab) 50 mg PO BID [facility] Stop: 08/31/20 10:38 Last Admin: 08/03/20 08:49 Dose: 50 mg Documented by: Tramadol HCl (Tramadol Hcl 50 Mg Tablet) 50 mg PO Q4H PRN PRN Reason: Pain Stop: 08/31/20 11:23 Last Admin: 08/03/20 08:56 Dose: 50 mg Documented by: PG Care Time/CCT Total # of Minutes Spent Total Time Spent with Patient: Total time spent is greater than 50% in coordination of care (as documented) at patient's floor/unit and/or counseling patient: Coding Level of Care Code 16688 Subseq Hosp Care Lvl 2 Diagnoses Cellulitis of left leg L03.116 Venous stasis ulcer of left lower extremity I83.029; L97.929 Hypertension I10 Hypertension type: unspecified Diastolic CHF, chronic I50.32 Chronic venous insufficiency I87.2 Morbid obesity with BMI of 50.0-59.9, adult E66.01; Z68.43 CAD (coronary artery disease) I25.10 Coronary Disease-Associated Artery/Lesion type: [place] artery [place] vs. transplanted heart: [place] heart Associated angina: angina presence unspecified Pre-diabetes R73.03 (1) Hypertension Hypertension type: unspecified Qualified Code(s): I10 - Essential (primary) hypertension (2) CAD (coronary artery disease) Coronary Disease-Associated Artery/Lesion type: [place] artery [place] vs. transplanted heart: [place] heart Associated angina: angina presence unspecified Qualified Code(s): I25.10 - Atherosclerotic heart disease of [place] coronary artery without angina pectoris
[2020-08-03] MEDS: ceFAZolin 1000MG 1,000 MG/7.5 ML SYR IV SCH ×2 (14:39→21:59)
[2020-08-03] MEDS: CIPROFLOXACIN 500 MG TAB PO SCH (20:04)
[2020-08-04] MEDS: HYDROmorphone INJ 0.5 MG/0.5 ML SYR IV PRN ×2 (01:37→21:19)
[2020-08-04] MEDS: traMADol HCL 50 MG TABLET PO PRN ×4 (04:47→20:17)
[2020-08-04] MEDS: ACETAMINOPHEN 325 MG TAB PO PRN ×4 (04:47→20:16)
[2020-08-04] MEDS: ceFAZolin 1000MG 1,000 MG/7.5 ML SYR IV SCH ×3 (04:53→21:19)
[2020-08-04 07:10] LABS: Creatinine Clr Calc Pharmacy 123.7 ml/min; Est GFR (African American) 87.4; Est GFR (Non-African American) 75.4
[2020-08-04] MEDS: TOPIRAMATE 50 MG TAB PO SCH ×2 (08:52→20:19)
[2020-08-04] MEDS: CIPROFLOXACIN 500 MG TAB PO SCH ×2 (08:52→20:19)
[2020-08-04] MEDS: ISOSORBIDE MONO EXTENDED REL 60 MG TABCR PO SCH (08:53)
[2020-08-04] MEDS: ASPIRIN 81 MG ECTAB PO SCH (08:53)
[2020-08-04] MEDS: FUROSEMIDE 40 MG TAB PO SCH (08:53)
[2020-08-04] MEDS: ENOXAPARIN INJ 40 MG/0.4 ML SYR SQ SCH ×2 (08:54→20:19)
[2020-08-04] MEDS: PANTOprazole 40 MG TAB PO SCH (08:54)
[2020-08-04] MEDS: CLOPIDOGREL BISULFATE 75 MG TAB PO SCH (08:54)
[2020-08-04] MEDS: METOPROLOL SUCC 50MG EXT REL TAB PO SCH (08:54)
--- NOTE | 2020-08-04 14:59 | Hospitalist Progress Note ---
Date of Service August 04, 2020 Assessment & Plan (1) Cellulitis of left leg: cellulitis, no signs of sepsis entire lower left leg, circumferential with open blisters, venous stasis ulcers suspect this will require several weeks of antibiotics, continue IV antibiotics through the weekend stop Daptomycin after 08/03, stopped Zosyn changed to Ancef 1gm q8 for the weekend, Cipro 500mg PO BID plan to send home on Augmentin BID and Cipro BID x 2 weeks, follow up with wound clinic follow up on wound culture - no growth no blood cultures drawn WBC has been normal, no fever, vitals stable (2) Venous stasis ulcer of left lower extremity: open wounds, shallow ask community engagement leader to assess, provide recommendations for topical therapy apply Aquacel, kerlix, foam dressing every day or more often if saturated (3) Hypertension: continue Imdur, Metoprolol, Lasix BP stable today (4) Diastolic CHF, chronic: examines euvolemic except he has some lymphedema in left leg continue Lasix, Imdur, metoprolol (5) Chronic venous insufficiency: (6) Morbid obesity with BMI of 50.0-59.9, adult: educated on weight loss benefits (7) CAD (coronary artery disease): no chest pain reported continue aspirin, Plavix, metoprolol, Imdur (8) Pre-diabetes: low carb diet Admission and Anticipated Discharge Date Admission Date: August 02, 2020 Subjective patient says he's doing a little better, less pain no fever, eating well discussed staying on Ancef through the weekend and then send home on Thursday with oral antibiotics for two weeks and follow up with wound clinic he agreed with this plan Review of Systems Review of Systems: All systems reviewed & are unremarkable except as noted in Subjective Physical Exam Constitutional: well developed, well nourished, + morbidly obese and comfortable; no acute distress Eyes: PERRL, conjunctivae normal, anicteric sclerae ENMT: external ear and nose normal, oropharynx normal Neck: trachea midline, no thyromegaly + thick neck Respiratory: normal respiratory effort, lungs clear to auscultation Cardiovascular: RRR, no murmur, no edema Gastrointestinal (Abdomen): normal bowel sounds, soft, nontender, no hepatosplenomegaly Musculoskeletal: no cyanosis or clubbing, extremities motor strength 5/5 Skin: + ulcer (venous stasis ulcers left lower leg, weeping of yellow fluid) and + erythema (left lower leg, warm, tender to palpation) Neurologic: patellar DTR's 2+ bilat, sensation intact and PERRL, EOMI, accommodation nl, no face palsy, no dysarthria Psychiatric: A+Ox3, euthymic affect Lymphatic: + lymphedema (left lower leg); no lymphadenopathy Results & Data Results & Data ([facility]) Vital Signs (Past 12 Hours) Vital Signs Temp Pulse Resp BP Pulse Ox 08/04/20 08:50 61 144/71 H 08/04/20 07:14 36.9 C 66 16 142/78 H 96 Laboratory Results Laboratory Results - last 24 hr 08/04/20 05:45 Creatinine 1.06 Est Cr Clr Drug Dosing 123.7 Est GFR ( Amer) 87.4 Est GFR (Non-Af Amer) 75.4 Medications Administered Current Inpatient Medications Acetaminophen (Acetaminophen 325 Mg Tab) 650 mg PO Q4H PRN PRN Reason: pain/fever Stop: 08/31/20 10:38 Last Admin: 08/04/20 11:36 Dose: 650 mg Documented by: Aspirin (Aspirin 81 Mg Ectab) 81 mg PO QAM [facility] Stop: 08/31/20 10:38 Last Admin: 08/04/20 08:53 Dose: 81 mg Documented by: Ciprofloxacin (Ciprofloxacin 500 Mg Tab) 500 mg PO BID [facility] Stop: 08/10/20 20:59 Last Admin: 08/04/20 08:52 Dose: 500 mg Documented by: Clopidogrel Bisulfate (Clopidogrel Bisulfate 75 Mg Tab) 75 mg PO QAM [facility] Stop: 08/31/20 10:38 Last Admin: 08/04/20 08:54 Dose: 75 mg Documented by: Diphenhydramine HCl (Diphenhydramine Capsule 25 Mg Cap) 25 mg PO Q8 PRN PRN Reason: Itching Stop: 08/31/20 11:23 Last Admin: 08/03/20 08:56 Dose: 25 mg Documented by: Enoxaparin Sodium (Enoxaparin Inj 40 Mg/0.4 Ml Syr) 40 mg SQ Q12 [facility] Stop: 08/31/20 10:59 Last Admin: 08/04/20 08:54 Dose: 40 mg Documented by: Furosemide (Furosemide 40 Mg Tab) 40 mg PO DAILY [facility] Stop: 08/31/20 10:38 Last Admin: 08/04/20 08:53 Dose: 40 mg Documented by: Hydromorphone HCl (Hydromorphone Inj 0.5 Mg/0.5 Ml Syr) 0.5 mg IV Q4 PRN PRN Reason: Pain Stop: 08/16/20 12:34 Last Admin: 08/04/20 01:37 Dose: 0.5 mg Documented by: Cefazolin Sodium (Ancef 1000mg) 1,000 mg in 7.5 mls @ 2.5 mls/min IV Q8H [facility] Stop: 08/10/20 13:59 Last Admin: 08/04/20 04:53 Dose: 2.5 mls/min Documented by: Isosorbide Mononitrate (Isosorbide [place] Extended Rel 60 Mg Tabcr) 60 mg PO QAM [facility] Stop: 08/31/20 10:38 Last Admin: 08/04/20 08:53 Dose: 60 mg Documented by: Metoprolol Succinate (Metoprolol Succ 50mg Ext Rel Tab) 50 mg PO QAM [facility] Stop: 08/31/20 10:38 Last Admin: 08/04/20 08:54 Dose: 50 mg Documented by: Ondansetron HCl (Ondansetron Inj 2 Mg/Ml 2 Ml Vial) 4 mg IV Q6H PRN PRN Reason: Nausea Stop: 08/31/20 10:38 Pantoprazole Sodium (Pantoprazole 40 Mg Tab) 40 mg PO QAM [facility] Stop: 08/31/20 10:38 Last Admin: 08/04/20 08:54 Dose: 40 mg Documented by: Topiramate (Topiramate 50 Mg Tab) 50 mg PO BID [facility] Stop: 08/31/20 10:38 Last Admin: 08/04/20 08:52 Dose: 50 mg Documented by: Tramadol HCl (Tramadol Hcl 50 Mg Tablet) 50 mg PO Q4H PRN PRN Reason: Pain Stop: 08/31/20 11:23 Last Admin: 08/04/20 11:37 Dose: 50 mg Documented by: PG Care Time/CCT Total # of Minutes Spent Total Time Spent with Patient: Total time spent is greater than 50% in coordination of care (as documented) at patient's floor/unit and/or counseling patient: Coding Level of Care Code 65040 Subseq Hosp Care Lvl 2 Diagnoses Cellulitis of left leg L03.116 Venous stasis ulcer of left lower extremity I83.029; L97.929 Hypertension I10 Hypertension type: unspecified Diastolic CHF, chronic I50.32 Chronic venous insufficiency I87.2 Morbid obesity with BMI of 50.0-59.9, adult E66.01; Z68.43 CAD (coronary artery disease) I25.10 Coronary Disease-Associated Artery/Lesion type: [place] artery [place] vs. transplanted heart: [place] heart Associated angina: angina presence unspecified Pre-diabetes R73.03 (1) Hypertension Hypertension type: unspecified Qualified Code(s): I10 - Essential (primary) hypertension (2) CAD (coronary artery disease) Coronary Disease-Associated Artery/Lesion type: [place] artery [place] vs. transplanted heart: [place] heart Associated angina: angina presence unspecified Qualified Code(s): I25.10 - Atherosclerotic heart disease of [place] coronary artery without angina pectoris
[2020-08-05] MEDS: ACETAMINOPHEN 325 MG TAB PO PRN ×5 (02:10→22:52)
[2020-08-05] MEDS: traMADol HCL 50 MG TABLET PO PRN ×4 (02:10→17:42)
[2020-08-05] MEDS: ceFAZolin 1000MG 1,000 MG/7.5 ML SYR IV SCH ×2 (06:09→14:53)
[2020-08-05] MEDS: diphenhydrAMINE Capsule 25 MG CAP PO PRN (08:31)
[2020-08-05] MEDS: CLOPIDOGREL BISULFATE 75 MG TAB PO SCH (08:32)
[2020-08-05] MEDS: TOPIRAMATE 50 MG TAB PO SCH ×2 (08:34→20:30)
[2020-08-05] MEDS: CIPROFLOXACIN 500 MG TAB PO SCH ×2 (08:34→20:59)
[2020-08-05] MEDS: ASPIRIN 81 MG ECTAB PO SCH (08:35)
[2020-08-05] MEDS: FUROSEMIDE 40 MG TAB PO SCH (08:37)
[2020-08-05] MEDS: ISOSORBIDE MONO EXTENDED REL 60 MG TABCR PO SCH (08:38)
[2020-08-05] MEDS: ENOXAPARIN INJ 40 MG/0.4 ML SYR SQ SCH ×2 (08:38→20:31)
[2020-08-05] MEDS: METOPROLOL SUCC 50MG EXT REL TAB PO SCH (08:38)
[2020-08-05] MEDS: PANTOprazole 40 MG TAB PO SCH (09:57)
--- NOTE | 2020-08-05 15:43 | Hospitalist Progress Note ---
Date of Service August 05, 2020 Assessment & Plan (1) Cellulitis of left leg: cellulitis, no signs of sepsis entire lower left leg, circumferential with open blisters, venous stasis ulcers suspect this will require several weeks of antibiotics, continue IV antibiotics through the weekend stop Daptomycin after 08/03, stopped Zosyn changed to Ancef 1gm q8 for the weekend, Cipro 500mg PO BID Plan: discharge him on Doxycycline 100mg BID for MSSA/MRSA coverage and Cipro 500mg BID for gram negative coverage would treat for 1-2 weeks, have him follow up with wound clinic in a week to assess follow up on wound culture - no growth no blood cultures drawn WBC has been normal, no fever, vitals stable (2) Venous stasis ulcer of left lower extremity: open wounds, shallow ask knitting tester to assess, provide recommendations for topical therapy apply Aquacel, kerlix, foam dressing every day or more often if saturated recommend home health to check on dressings (3) Hypertension: continue Imdur, Metoprolol, Lasix BP stable today (4) Diastolic CHF, chronic: examines euvolemic except he has some lymphedema in left leg continue Lasix, Imdur, metoprolol (5) Chronic venous insufficiency: (6) Morbid obesity with BMI of 50.0-59.9, adult: educated on weight loss benefits (7) CAD (coronary artery disease): no chest pain reported continue aspirin, Plavix, metoprolol, Imdur (8) Pre-diabetes: low carb diet Admission and Anticipated Discharge Date Admission Date: August 02, 2020 Subjective has some numbness in right shoulder, no other numb areas, no neck pain full ROM of right shoulder, normal strength in arm had some itching earlier, diffuse, went away with benadryl discussed that itching might be due to Zosyn and then Ancef, might have PCN and cephalosporin issues will stop Ancef, start on Doxycycline discussed plan to go home tomorrow and follow up with wound clinic, he agrees Review of Systems Review of Systems: All systems reviewed & are unremarkable except as noted in Subjective Physical Exam Constitutional: well developed, well nourished, + morbidly obese and comfortable; no acute distress Eyes: PERRL, conjunctivae normal, anicteric sclerae ENMT: external ear and nose normal, oropharynx normal Neck: trachea midline, no thyromegaly + thick neck Respiratory: normal respiratory effort, lungs clear to auscultation Cardiovascular: RRR, no murmur, no edema Gastrointestinal (Abdomen): normal bowel sounds, soft, nontender, no hepatosplenomegaly Musculoskeletal: no cyanosis or clubbing, extremities motor strength 5/5 Skin: + ulcer (venous stasis ulcers left lower leg, weeping of yellow fluid) and + erythema (left lower leg, warm, tender to palpation) Neurologic: patellar DTR's 2+ bilat, sensation intact and PERRL, EOMI, accommodation nl, no face palsy, no dysarthria Psychiatric: A+Ox3, euthymic affect Lymphatic: + lymphedema (left lower leg); no lymphadenopathy Results & Data Results & Data ([facility]) Vital Signs (Past 12 Hours) Vital Signs Temp Pulse Resp BP Pulse Ox 08/05/20 14:51 36.4 C L 57 L 20 147/71 H 96 08/05/20 08:37 56 L 128/70 08/05/20 07:07 36.7 C 60 16 135/81 98 Medications Administered Current Inpatient Medications Acetaminophen (Acetaminophen 325 Mg Tab) 650 mg PO Q4H PRN PRN Reason: pain/fever Stop: 08/31/20 10:38 Last Admin: 08/05/20 11:12 Dose: 650 mg Documented by: Aspirin (Aspirin 81 Mg Ectab) 81 mg PO [facility] Stop: 08/31/20 10:38 Last Admin: 08/05/20 08:35 Dose: 81 mg Documented by: Ciprofloxacin (Ciprofloxacin 500 Mg Tab) 500 mg PO BID [facility] Stop: 08/10/20 20:59 Last Admin: 08/05/20 08:34 Dose: 500 mg Documented by: Clopidogrel Bisulfate (Clopidogrel Bisulfate 75 Mg Tab) [facility] [place] Stop: 08/31/20 10:38 Last Admin: 08/05/20 08:32 Dose: 75 mg Documented by: Diphenhydramine HCl (Diphenhydramine Capsule 25 Mg Cap) 25 mg PO Q8 PRN PRN Reason: Itching Stop: 08/31/20 11:23 Last Admin: 08/05/20 08:31 Dose: 25 mg Documented by: Doxycycline Hyclate (Doxycycline Hyclate 100 Mg Cap) 100 mg PO BID [facility] Stop: 08/12/20 20:59 Enoxaparin Sodium (Enoxaparin Inj 40 Mg/0.4 Ml Syr) 40 mg SQ Q12 [facility] Stop: 08/31/20 10:59 Last Admin: 08/05/20 08:38 Dose: 40 mg Documented by: Furosemide (Furosemide 40 Mg Tab) 40 mg PO DAILY [facility] Stop: 08/31/20 10:38 Last Admin: 08/05/20 08:37 Dose: 40 mg Documented by: Hydromorphone HCl (Hydromorphone Inj 0.5 Mg/0.5 Ml Syr) 0.5 mg IV Q4 PRN PRN Reason: Pain Stop: 08/16/20 12:34 Last Admin: 08/04/20 21:19 Dose: 0.5 mg Documented by: Isosorbide Mononitrate (Isosorbide [place] Extended Rel 60 Mg Tabcr) 60 mg PO QAM [facility] Stop: 08/31/20 10:38 Last Admin: 08/05/20 08:38 Dose: 60 mg Documented by: Metoprolol Succinate (Metoprolol Succ 50mg Ext Rel Tab) 50 mg PO QAM [facility] Stop: 08/31/20 10:38 Last Admin: 08/05/20 08:38 Dose: Not Given Documented by: Ondansetron HCl (Ondansetron Inj 2 Mg/Ml 2 Ml Vial) 4 mg IV Q6H PRN PRN Reason: Nausea Stop: 08/31/20 10:38 Pantoprazole Sodium (Pantoprazole 40 Mg Tab) 40 mg PO QAM [facility] Stop: 08/31/20 10:38 Last Admin: 08/05/20 09:57 Dose: 40 mg Documented by: Topiramate (Topiramate 50 Mg Tab) 50 mg PO BID [facility] Stop: 08/31/20 10:38 Last Admin: 08/05/20 08:34 Dose: 50 mg Documented by: Tramadol HCl (Tramadol Hcl 50 Mg Tablet) 50 mg PO Q4H PRN PRN Reason: Pain Stop: 08/31/20 11:23 Last Admin: 08/05/20 11:12 Dose: 50 mg Documented by: PG Care Time/CCT Total # of Minutes Spent Total Time Spent with Patient: Total time spent is greater than 50% in coordination of care (as documented) at patient's floor/unit and/or counseling patient: Coding Level of Care Code 84758 Subseq Hosp Care Lvl 2 Diagnoses Cellulitis of left leg L03.116 Venous stasis ulcer of left lower extremity I83.029; L97.929 Hypertension I10 Hypertension type: unspecified Diastolic CHF, chronic I50.32 Chronic venous insufficiency I87.2 Morbid obesity with BMI of 50.0-59.9, adult E66.01; Z68.43 CAD (coronary artery disease) I25.10 Associated angina: angina presence unspecified Coronary Disease-Associated Artery/Lesion type: [place] artery [place] vs. transplanted heart: [place] heart Pre-diabetes R73.03 (1) CAD (coronary artery disease) Associated angina: angina presence unspecified Coronary Disease-Associated Artery/Lesion type: [place] artery [place] vs. transplanted heart: [place] heart Qualified Code(s): I25.10 - Atherosclerotic heart disease of [place] coronary artery without angina pectoris (2) Hypertension Hypertension type: unspecified Qualified Code(s): I10 - Essential (primary) hypertension
[2020-08-05] MEDS: DOXYCYCLINE HYCLATE 100 MG CAP PO SCH (20:59)
[2020-08-06] MEDS: ACETAMINOPHEN 325 MG TAB PO PRN ×2 (06:20→16:56)
[2020-08-06] MEDS: traMADol HCL 50 MG TABLET PO PRN ×2 (07:31→20:23)
[2020-08-06] MEDS: CIPROFLOXACIN 500 MG TAB PO SCH ×2 (08:30→20:24)
[2020-08-06] MEDS: TOPIRAMATE 50 MG TAB PO SCH ×2 (08:30→20:24)
[2020-08-06] MEDS: ISOSORBIDE MONO EXTENDED REL 60 MG TABCR PO SCH (08:31)
[2020-08-06] MEDS: METOPROLOL SUCC 50MG EXT REL TAB PO SCH (08:31)
[2020-08-06] MEDS: DOXYCYCLINE HYCLATE 100 MG CAP PO SCH ×2 (08:31→20:24)
[2020-08-06] MEDS: ASPIRIN 81 MG ECTAB PO SCH (08:32)
[2020-08-06] MEDS: FUROSEMIDE 40 MG TAB PO SCH (08:32)
[2020-08-06] MEDS: PANTOprazole 40 MG TAB PO SCH (08:32)
[2020-08-06] MEDS: CLOPIDOGREL BISULFATE 75 MG TAB PO SCH (08:32)
[2020-08-06] MEDS: ENOXAPARIN INJ 40 MG/0.4 ML SYR SQ SCH ×2 (08:33→20:24)
--- NOTE | 2020-08-06 09:35 | Hospitalist Progress Note ---
Date of Service August 06, 2020 Assessment & Plan (1) Cellulitis of left leg: cellulitis, no signs of sepsis entire lower left leg, circumferential with open blisters, venous stasis ulcers slowly healing suspect this will require several weeks of antibiotics, patient previously has seen outpatient wound care typically have his has his leg wrapped between visits on a weekly basis stop Daptomycin after 08/03, stopped Zosyn changed to Ancef 1gm q8 for the weekend, Cipro 500mg PO BID Plan: discharge him on Doxycycline 100mg BID for MSSA/MRSA coverage and Cipro 500mg BID for gram negative coverage would treat for 1-2 weeks, have him follow up with wound clinic in a week to assess follow up on wound culture - no growth no blood cultures drawn WBC has been normal, no fever, vitals stable (2) Venous stasis ulcer of left lower extremity: open wounds, shallow ask crop supervisor to assess, provide recommendations for topical therapy apply Aquacel, kerlix, foam dressing every day or more often if saturated recommend home health to check on dressings however patient denies home health visits and states his family cannot help dress his legs (3) Hypertension: continue Imdur, Metoprolol, Lasix BP stable today (4) Diastolic CHF, chronic: examines euvolemic except he has some lymphedema in left leg continue Lasix, Imdur, metoprolol (5) Chronic venous insufficiency: (6) Morbid obesity with BMI of 50.0-59.9, adult: educated on weight loss benefits, his BMI 52 directly impacts his lower extremity stasis and his lack of ability to physically care for his lower legs (7) CAD (coronary artery disease): no chest pain reported continue aspirin, Plavix, metoprolol, Imdur (8) Pre-diabetes: low carb diet Admission and Anticipated Discharge Date Admission Date: August 02, 2020 Subjective Patient seems fairly dismissive and not wanting to engage in trying to break his cycle of recurrent hospitalizations or leg wounds. He cannot solve the conundrum of who is going to care for his wounds at home he says his will do it and cannot offer up any other family members. He however denies home health visits at the same time. He says his leg feels about the same as it always does not get any better or any worse than when he arrived. Descriptions do show that his leg looks to be improving from when he arrived Review of Systems Review of Systems: Mild distress and fatigue no headache, blurry or double vision no speech or swallowing issues no chest pain, pressure or palpitations no shortness of breath, cough or wheezes no abdominal pain, nausea or vomiting, diarrhea or constipation no dysuria, hematuria or frequency no focal joint pain or swelling no back pain, CVA tenderness or radicular pain She has chronic skin changes to his bilateral lower extremities worse on the lef t than the right currently does not appear to be active with cellulitis of that was on treatment no focal signs of weakness or numbness or altered sensation no complaints of anxiety or depression.. Physical Exam Physical Exam: The patient appeared well nourished and normally developed. Vital signs as documented. Head exam is normocephalic atraumatic no scleral icterus Neck is without JVD, thyromegaly, or carotid bruits. Lungs are clear to auscultation, no focal loss of breath sounds Cardiac exam, Rhythm is regular.. No murmurs, rubs or gallops he is in no further chest pain. Abdominal exam reveals normal bowel sounds, soft non tender, no masses Extremities are 1+ edematous bilaterally and both pedal pulses are present His left lower extremity is Optifoam bandage in place however it is more erythematous than the right but this appears to be more chronic change in acute infection at this point Neurologic exam is alert and oriented, no focal loss of strength or sensation Skin is with open areas more in the left leg than the right Psychologically is without concerns for depression patient asked if he was depressed about his chronic illness he denies being depressed at this time Results & Data Results & Data ([facility]) Vital Signs (Past 12 Hours) Vital Signs Temp Pulse Resp BP Pulse Ox 08/06/20 07:30 97.5 F L 56 L 20 157/74 H 95 08/05/20 22:48 98.1 F 73 16 160/65 H 97 PG Care Time/CCT Total # of Minutes Spent Total Time Spent with Patient: Total time spent is greater than 50% in coordination of care (as documented) at patient's floor/unit and/or counseling patient: Coding Level of Care Code 26612 Subseq Hosp Care Lvl 2 Diagnoses Cellulitis of left leg L03.116 Venous stasis ulcer of left lower extremity I83.029; L97.929 Hypertension I10 Hypertension type: unspecified Diastolic CHF, chronic I50.32 Chronic venous insufficiency I87.2 Morbid obesity with BMI of 50.0-59.9, adult E66.01; Z68.43 CAD (coronary artery disease) I25.10 Associated angina: angina presence unspecified Coronary Disease-Associated Artery/Lesion type: [place] artery [place] vs. transplanted heart: [place] heart Pre-diabetes R73.03 (1) CAD (coronary artery disease) Associated angina: angina presence unspecified Coronary Disease-Associated Artery/Lesion type: [place] artery [place] vs. transplanted heart: [place] heart Qualified Code(s): I25.10 - Atherosclerotic heart disease of [place] coronary artery without angina pectoris (2) Hypertension Hypertension type: unspecified Qualified Code(s): I10 - Essential (primary) hypertension
[2020-08-07 06:47] LABS: Creatinine Clr Calc Pharmacy 152.5 ml/min; Est GFR (African American) 108.5; Est GFR (Non-African American) 93.6
[2020-08-07] MEDS: DOXYCYCLINE HYCLATE 100 MG CAP PO SCH (08:20)
[2020-08-07] MEDS: CIPROFLOXACIN 500 MG TAB PO SCH (08:20)
[2020-08-07] MEDS: TOPIRAMATE 50 MG TAB PO SCH (08:20)
[2020-08-07] MEDS: METOPROLOL SUCC 50MG EXT REL TAB PO SCH (08:21)
[2020-08-07] MEDS: PANTOprazole 40 MG TAB PO SCH (08:21)
[2020-08-07] MEDS: ASPIRIN 81 MG ECTAB PO SCH (08:21)
[2020-08-07] MEDS: FUROSEMIDE 40 MG TAB PO SCH (08:22)
[2020-08-07] MEDS: CLOPIDOGREL BISULFATE 75 MG TAB PO SCH (08:22)
[2020-08-07] MEDS: ISOSORBIDE MONO EXTENDED REL 60 MG TABCR PO SCH (08:22)
[2020-08-07] MEDS: ENOXAPARIN INJ 40 MG/0.4 ML SYR SQ SCH (08:23)
--- NOTE | 2020-08-07 18:19 | Discharge Summary ---
Date of Service August 07, 2020 Admission HPI Per Admitting Provider 60 yo male with obesity, venous insufficiency, h/o cellulitis presents with several days of worsening redness, pain, swelling and now weeping of left leg. He says that he has had cellulitis of the left leg before, most recently was about 1.5 years ago. He says he noted some increased swelling and redness a few days ago. He denies any scratches/breaks in the skin surface, no cat or dog scratches/bites to the region. The pain and swelling increased, he had low grade temperature. He came to the ED this morning because he was afraid he had cellulitis. Vitals stable, WBC normal, CR normal and electrolytes stable. Clearly had signs of cellulitis, admission requested for IV antibiotics. Principal Diagnosis Left lower extremity cellulitis Discharge Exam The patient appeared well Vital signs as documented. Lungs are clear to auscultation and appear unlabored Cardiac exam, Rhythm is regular.. No murmurs, rubs or gallops. Abdominal exam reveals normal bowel sounds, soft non tender, no masses Extremities are edematous bilaterally he has Tubigrip on his left leg placed by wound care nursing right leg has changes of chronic venous stasis Cellulitis is greatly improved Neurologic exam is alert and oriented, no focal loss of strength or sensation Psychologically is without concerns for anxiety or depression. Discharge Data Allergies Allergy/AdvReac Type Severity Reaction Status Date / Time latex Allergy Mild RASH Verified 08/01/20 06:11 Consultations 08/01/20 07:33 ED Decision to Admit Stat Hospital Course (1) Cellulitis of left leg: cellulitis, no signs of sepsis entire lower left leg, circumferential with open blisters, venous stasis ulcers slowly healing suspect this will require several weeks of antibiotics, patient previously has seen outpatient wound care typically have his has his leg wrapped between visits on a weekly basis stop Daptomycin after 08/03, stopped Zosyn changed to Ancef 1gm q8 for the weekend, Cipro 500mg PO BID Plan: discharge him on Doxycycline 100mg BID for MSSA/MRSA coverage and Cipro 500mg BID for gram negative coverage would treat for 10 additional days, have him follow up with wound clinic in a week to assess Given work excuse to be off through 08/10/2020 follow up on wound culture - no growth no blood cultures drawn WBC has been normal, no fever, vitals stable (2) Venous stasis ulcer of left lower extremity: open wounds, shallow 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 forest fire 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 to assess, Tubigrip placed on his lower extremities with arrangements for wound care follow-up made by wound care nursing (3) Hypertension: continue Imdur, Metoprolol, Lasix BP stable (4) Diastolic CHF, chronic: examines euvolemic except he has some lymphedema in left leg continue Lasix, Imdur, metoprolol (5) Chronic venous insufficiency: (6) Morbid obesity with BMI of 50.0-59.9, adult: educated on weight loss benefits, his BMI 52 directly impacts his lower extremity stasis and his lack of ability to physically care for his lower legs (7) CAD (coronary artery disease): no chest pain reported continue aspirin, Plavix, metoprolol, Imdur (8) Pre-diabetes: low carb diet Total Time Total Time Spent Total Time Spent (In Minutes): It required greater than 30 minutes to prepare this patient for discharge Discharge Plan Discharge Items Patient Disposition: Home - Self-Care Reason For Visit: CELLULITIS Discharge Diagnosis: left lower leg infection with chronic swelling Activity: Per Instructions section Activity Comment: keep legs elevated as much as able Non-emergency contact: Primary Care Provider and Specialist Call non-emergency contact if: your symptoms worsen, your temperature is above 101, your wound has increased redness, your wound has increased drainage and your wound pain has increased Follow-up/Referrals: Hany Berrios MD [Primary Care Provider] - 08/15/20 2:45 pm Diet: Carb Consistent or DM2 Addtl Attending Provider Instructions: please eat a low salt low sugar diet keep your legs elevated as much as able when you are not standing/walkig finish all of your antibiotics consider eating yogurt or cottage cheese 3 times a week to help protect your digestive system from your antibiotics if you do not hear from wound care by thursday please call to make an appointment for next week [phone] keep your leg dressing on until you see wound care, consider wrapping in a plastic bag with tape on the upper end to prevent it from getting wet when taking a shower or bath Pending Studies at Discharge: No Stand-Alone Forms: [employer], Work/School Release (Inpt), Smoking Cessation Medications and DC Order Prescriptions: New doxycycline hyclate 100 mg Capsule 100 mg PO BID Qty: 20 RF: 0 ciprofloxacin HCl 500 mg Tablet 500 mg PO BID Qty: 20 RF: 0 Continued atorvastatin 40 mg Tablet 40 mg PO HS RF: 0 metoprolol succinate 50 mg Tablet Extended Release 24 Hr 50 mg PO QAM RF: 0 clopidogrel [Plavix] 75 mg Tablet 75 mg PO QAM RF: 0 aspirin [Aspirin Low Dose] 81 mg Tablet,Delayed Release (Dr/Ec) 81 mg PO QAM RF: 0 isosorbide mononitrate 60 mg tablet extended release 24 hr 60 mg PO QAM RF: 0 pantoprazole 40 mg tablet,delayed release (DR/EC) 40 mg PO QAM RF: 0 nitroglycerin 0.4 mg tablet, sublingual 0.4 mg sublingual DIRECTED PRN (Reason: Chest Pain) RF: 0 furosemide 40 mg tablet 40 mg PO DAILY RF: 0 topiramate [Topamax] 50 mg Tablet 50 mg PO BID RF: 0 Discharge Orders: Discharge Order (Routine); Ordered 08/07/20 Ordered By: Bruno Rascon/Other Patient Handouts: Ciprofloxacin tablets, Doxycycline tablets or capsules Admission Data Admit Date/Time: 08/02/20 12:35 Attending Provider: Bruno Bernardo Admit Provider: Kimani Carr Primary Care Provider: Hany Berrios Other Providers: Kimani Carr Other Interventions: Discharge Summary Assessment (RN) Last Done: 08/07/20 12:43 Coding Level of Care Code D/C Day Management >30 mins Diagnoses Cellulitis of left leg L03.116 Venous stasis ulcer of left lower extremity I83.029; L97.929 Hypertension I10 Hypertension type: unspecified Diastolic CHF, chronic I50.32 Chronic venous insufficiency I87.2 Morbid obesity with BMI of 50.0-59.9, adult E66.01; Z68.43 CAD (coronary artery disease) I25.10 Coronary Disease-Associated Artery/Lesion type: [place] artery [place] vs. transplanted heart: [place] heart Associated angina: angina presence unspecified Pre-diabetes R73.03
== END 2020-08-07 13:38 | disposition home or self-care (01) | DRG 603 ==
LOC: ED 05:50 → 3E 05:50 → SUATTDRO 08-02 12:35